=== PATIENT | male | born 1955 | race Caucasian/White ===

== ENCOUNTER → 2016-08-16 | Outpatient (CLI) | payer BC ==
[~2016-08-16] MED LIST: ADVIN25050 INH; ALBUAER2 INH; AMB10 PO; ASPEC81 PO; CLOP1TAB15 PO; FLV1 PO; LISI-725 PO; LSX20 PO; METO1TAB69 PO; THIA100T11 PO
[2016-08-16 14:40] LABS: BASO % 0.4 %; BASO ABS # 0.03 K/uL (0-0.2); COMPLETE YES; EOS % 2.7 %; HEMATOCRIT 41.7 % (42-52); IG% 0.1 %; LYMPH ABS # 2.87 K/uL (1.2-3.4); MEAN CELL VOLUME 101.7 fL (80-100); MEAN CORPUSCULAR HEMOGLOBIN 34.9 pg (25-34); MEAN CORPUSCULAR HGB CONC 34.3 g/dl (32-36); MEAN PLATELET VOLUME 9.6 fL (7.4-10.4); MONO % 9.4 %; NEUT % 50.4 %; PLATELET COUNT 216 K/uL (130-400); WHITE BLOOD COUNT 7.76 K/uL (4.8-10.8)
[2016-08-16 14:49] LABS: ALT/SGPT 40 U/L (12-78); AST/SGOT 31 U/L (15-37); BLOOD UREA NITROGEN 11 mg/dl (7-18); BUN/CREATININE RATIO 11.3 (10-20); CALCIUM 8.9 mg/dl (8.5-10.1); CARBON DIOXIDE 29 mmol/L (21-32); CHLORIDE 105 mmol/L (98-107); GLUCOSE 100 mg/dl (70-99); POTASSIUM 4.6 mmol/L (3.5-5.1); SODIUM 140 mmol/L (136-145)
[2016-08-16 14:52] LABS: CHOLESTEROL 136 mg/dl (0-200); CHOLESTEROL/HDL RATIO 2.1; HDL CHOLESTEROL 66 mg/dl; LDL CHOLESTEROL CALCULATED 55 mg/dl; TRIGLYCERIDES 75 mg/dl (0-150); VERY LOW DENSITY LIPOPROT CALC 15 mg/dl
== END | disposition home or self-care (01) ==
LOC: C.LAB1850 13:05
PROVIDERS: ATTEND Internal Medicine Cardiovascular Disease
DX: I10 Essential (primary) hypertension (principal); E78.00 Pure hypercholesterolemia, unspecified

== ENCOUNTER → 2017-02-14 | Outpatient (CLI) | payer BC ==
[2017-02-14 14:55] LABS: CHOLESTEROL/HDL RATIO 1.7
== END | disposition home or self-care (01) ==
LOC: C.LAB 13:34
PROVIDERS: ATTEND Internal Medicine Cardiovascular Disease
DX: E78.00 Pure hypercholesterolemia, unspecified (principal)

== ENCOUNTER → 2017-07-21 | Outpatient (CLI) | payer BC ==
[~2017-07-21] MED LIST changes: +METO100T44 PO; -METO1TAB69 PO
[2017-07-21 17:44] LABS: BASO % 0.1 %; BASO ABS # 0.01 K/uL (0-0.2); EOS % 0.2 %; EOS ABS # 0.02 K/uL (0-0.5); HEMATOCRIT 44.4 % (42-52); HEMOGLOBIN 15.2 g/dL (14.0-18.0); IG# 0.01 K/uL (0.00-0.02); LYMPH ABS # 1.86 K/uL (1.2-3.4); MEAN CELL VOLUME 102.3 fL (80-100); MEAN CORPUSCULAR HGB CONC 34.2 g/dl (32-36); MEAN PLATELET VOLUME 9.7 fL (7.4-10.4); MONO % 8.9 %; MONO ABS # 0.98 K/uL (0.11-0.59); NEUT % 73.7 %; NEUT ABS # 8.09 K/uL (1.4-6.5); PLATELET COUNT 365 K/uL (130-400); RED CELL DISTRIBUTION WIDTH CV 13.1 % (11.5-14.5); RED CELL DISTRIBUTION WIDTH SD 49.3 fL (36.4-46.3); WHITE BLOOD COUNT 10.97 K/uL (4.8-10.8)
[2017-07-21 17:46] LABS: ALBUMIN 3.9 gm/dl (3.4-5.0); ALT/SGPT 40 U/L (12-78); BLOOD UREA NITROGEN 15 mg/dl (7-18); CALCIUM 9.5 mg/dl (8.5-10.1); CARBON DIOXIDE 27 mmol/L (21-32); CHOLESTEROL 121 mg/dl (0-200); CREATININE 1.06 mg/dl (0.60-1.40); GLUCOSE 120 mg/dl (70-99); SODIUM 135 mmol/L (136-145)
[2017-07-21 17:51] LABS: ALKALINE PHOSPHATASE 63 U/L (45-117); AST/SGOT 21 U/L (15-37); LDL CHOLESTEROL CALCULATED 42 mg/dl
== END | disposition home or self-care (01) ==
LOC: C.LABBFT 13:37
PROVIDERS: ATTEND Internal Medicine
DX: J44.0 Chronic obstructive pulmonary disease with (acute) lower respiratory infection (principal); I25.10 Atherosclerotic heart disease of native coronary artery without angina pectoris; Z12.5 Encounter for screening for malignant neoplasm of prostate

== ENCOUNTER → 2018-01-16 | Outpatient (CLI) | payer BC ==
[~2018-01-16] MED LIST changes: +THIA100T10 PO; -THIA100T11 PO
[2018-01-16 12:27] LABS: BASO % 0.2 %; BASO ABS # 0.02 K/uL (0-0.2); EOS % 1.3 %; EOS ABS # 0.13 K/uL (0-0.5); HEMATOCRIT 42.5 % (42-52); HEMOGLOBIN 14.2 g/dL (14.0-18.0); IG# 0.02 K/uL (0.00-0.02); LYMPH % 32.2 %; LYMPH ABS # 3.17 K/uL (1.2-3.4); MEAN CELL VOLUME 103.7 fL (80-100); MEAN CORPUSCULAR HEMOGLOBIN 34.6 pg (25-34); MEAN CORPUSCULAR HGB CONC 33.4 g/dl (32-36); MEAN PLATELET VOLUME 9.6 fL (7.4-10.4); MONO % 14.4 %; MONO ABS # 1.42 K/uL (0.11-0.59); NEUT % 51.7 %; NEUT ABS # 5.08 K/uL (1.4-6.5); PLATELET COUNT 227 K/uL (130-400); RED CELL DISTRIBUTION WIDTH CV 12.7 % (11.5-14.5); WHITE BLOOD COUNT 9.84 K/uL (4.8-10.8)
[2018-01-16 13:00] LABS: HEMOGLOBIN A1C 5.9 % (4.5-5.6)
[2018-01-16 13:04] LABS: ALBUMIN 3.9 gm/dl (3.4-5.0); ALKALINE PHOSPHATASE 66 U/L (45-117); ALT/SGPT 78 U/L (12-78); AST/SGOT 61 U/L (15-37); BLOOD UREA NITROGEN 23 mg/dl (7-18); CALCIUM 8.6 mg/dl (8.5-10.1); CARBON DIOXIDE 23 mmol/L (21-32); CHOLESTEROL 130 mg/dl (0-200); CREATININE 1.23 mg/dl (0.60-1.40); GLUCOSE 105 mg/dl (70-99); LDL CHOLESTEROL CALCULATED 34 mg/dl; POTASSIUM 4.8 mmol/L (3.5-5.1); SODIUM 139 mmol/L (136-145); TOTAL PROTEIN 7.8 gm/dl (6.4-8.2)
== END | disposition home or self-care (01) ==
LOC: C.LABBFT 11:07
PROVIDERS: ATTEND Internal Medicine
DX: I10 Essential (primary) hypertension (principal); E78.00 Pure hypercholesterolemia, unspecified

== ENCOUNTER 2021-01-03 14:55 | Inpatient (IN) ==
[2021-01-03] MEDS ORDERED: methylPREDNISolone 125 MG/2 ML VIAL IV STA (16:41)
[2021-01-03] MEDS ORDERED: ALBUT/IPRATROP 3MG/0.5MG NEB 3 ML VIAL NEB STA ×2 (16:41→17:16)
--- NOTE | 2021-01-03 16:44 | Emergency Department Note ---
History of Present Illness General Chief Complaint: Shortness of Breath/Dyspnea Stated Complaint: SOB Time Seen by Provider: 01/03/21 16:32 History of Present Illness Provider Complaint: shortness of breath Onset (ago): week(s) (2) Severity: moderate Consistency/Duration: + progressively worsening Relieved By: + nothing Exacerbated By: + exertion and + coughing Known history of: COPD Associated symptoms: + chest pain, + cough and + wheezing; no fever, no sputum production, no orthopnea, no polyuria, no polydipsia, no paresthesias, no palpitations, no diaphoresis, no nausea/vomiting, no syncope, no abdominal pain, no chest congestion, no dizziness or no lightheadedness HPI Narrative: Most recently prescribed prednisone and amoxicillin which have not helped his symptoms. Related Data Home oxygen amount: none Home Medications Medication Instructions Recorded Confirmed Type vitamin B complex 1 tab PO DAILY 01/26/19 01/03/21 History sildenafil 50 mg tablet 50 mg PO DAILY PRN #6 tab 02/09/19 01/03/21 Rx folic acid 1 mg tablet 1 mg PO DAILY #90 tab 01/30/20 01/03/21 Rx lisinopril 20 mg tablet 20 mg PO DAILY #90 tab 03/11/20 01/03/21 Rx metoprolol tartrate 100 mg tablet 100 mg PO BID #180 tab 04/25/20 01/03/21 Rx tiotropium bromide 18 mcg capsule 1 cap INH DAILY #30 puffs 04/25/20 01/03/21 Rx with inhalation device (Spiriva with HandiHaler) ezetimibe 10 mg tablet 10 mg PO DAILY #90 tab 06/25/20 01/03/21 Rx furosemide 20 mg tablet 20 mg PO DAILY #90 tab 06/25/20 01/03/21 Rx rosuvastatin 20 mg tablet 20 mg PO DAILY #90 tab 06/25/20 01/03/21 Rx albuterol sulfate 90 mcg/actuation 2 puff INHALATION QID PRN #18 g 08/01/20 01/03/21 Rx aerosol inhaler (ProAir HFA) potassium chloride 10 mEq 10 meq PO DAILY #90 tab 09/15/20 01/03/21 Rx tablet,extended release aspirin 81 mg tablet,delayed 81 mg PO DAILY 01/03/21 01/03/21 History release (Aspirin Low Dose) Allergies Allergy/AdvReac Type Severity Reaction Status Date / Time atorvastatin Allergy muscle Verified 01/03/21 17:06 weakness, myalgia escitalopram [From Lexapro] Allergy Fatigued Verified 01/03/21 17:06 Past Med/Surg History Medical History Actinic keratosis Brain anoxic injury Controlled substance agreement broken History of cardiac arrest Hypercholesterolemia Hypertension Impaired fasting glucose Inflamed seborrheic keratosis Insomnia Memory loss Venous insufficiency Surgical History History of coronary artery stent placement Status post angioplasty Family History Brother Alcohol abuse Crohn's disease Drug abuse Depression Mother Colorectal cancer COPD (chronic obstructive pulmonary disease) Dementia Breast cancer Father Colorectal cancer Cardiac disorder Myocardial infarction Family/Other Colorectal cancer siblings Sister Thyroid disease Denies family history of Ovarian cancer Prostate cancer Social History Smoking Status: Current some day smoker Tobacco Type: Cigarettes Age Started Using Tobacco: 13; Cigarettes Per Day: 1 pack per 3 days; Second Hand Exposure: No; Do You Dip or Chew Tobacco: No; Tobacco Cessation Education Requested by Patient: No Hx Alcohol Use: Yes Alcohol type: beer Alcohol Intake Frequency: 4 or More x per/Week Alcohol Intake Frequency Comment: 3 beers per day Hx Substance Use: No Preferred Language: Mongolian Communication Ability: Effective Visual Impairment: No Limitations Hearing Ability: Normal Software Sales Representative Required: No Beliefs That Will Affect Care: None marital status: Current Living Situation: Alone current occupational status: retired 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 Review of Systems A total of 10 systems reviewed and were otherwise negative Physical Exam Vital Signs: Vital Signs - 24 hr 01/03/21 15:19 01/03/21 16:52 01/03/21 16:54 Temperature 36.9 C Temperature Source Oral Pulse Rate 95 H 91 H Pulse Rate [Apical ] 91 H 88 Pulse Rate from Sp O2 Sensor Respiratory Rate 20 24 20 Respiratory Effort / Characteristics Non-Labored Sponta neous Blood Pressure 148/102 H Blood Pressure [Ri ght Arm] 185/102 H Blood Pressure Maria E n 117 Blood Pressure Maria E n [Right Arm] 129 Blood Pressure Pos ition [Right Arm] Pulse Oximetry 94 94 97 Oxygen Delivery Me thod Room Air Room Air Room Air Oxygen Flow Rate Sepsis Recent Feve r Within 48 Hours No Sepsis New/Unexpla ined Change in Men shahriar Status N/A Sepsis Action Take n by Nursing No Action Required 01/03/21 17:52 01/03/21 18:10 01/03/21 19:00 Temperature Temperature Source Pulse Rate 113 H Pulse Rate [Apical ] 91 H 109 H Pulse Rate from Sp O2 Sensor 113 H Respiratory Rate 18 20 22 Respiratory Effort / Characteristics Non-Labored Sponta neous Blood Pressure 154/91 H Blood Pressure [Ri ght Arm] 136/80 Blood Pressure Maria E n 112 Blood Pressure Maria E n [Right Arm] 98 Blood Pressure Pos ition [Right Arm] Sitting Pulse Oximetry 97 95 95 Oxygen Delivery Me thod Room Air Room Air Oxygen Flow Rate Sepsis Recent Feve r Within 48 Hours Sepsis New/Unexpla ined Change in Men shahriar Status Sepsis Action Take n by Nursing 01/03/21 19:30 01/03/21 20:00 01/03/21 20:20 Temperature Temperature Source Pulse Rate 105 H 113 H Pulse Rate [Apical ] Pulse Rate from Sp O2 Sensor 105 H 113 H Respiratory Rate 23 24 Respiratory Effort / Characteristics Blood Pressure 129/79 118/79 Blood Pressure [Ri ght Arm] Blood Pressure Maria E n 95 92 Blood Pressure Maria E n [Right Arm] Blood Pressure Pos ition [Right Arm] Pulse Oximetry 94 95 86 L Oxygen Delivery Me thod Room Air Oxygen Flow Rate Sepsis Recent Feve r Within 48 Hours Sepsis New/Unexpla ined Change in Men shahriar Status Sepsis Action Take n by Nursing 01/03/21 20:22 Temperature Temperature Source Pulse Rate Pulse Rate [Apical ] Pulse Rate from Sp O2 Sensor Respiratory Rate Respiratory Effort / Characteristics Blood Pressure Blood Pressure [Ri ght Arm] Blood Pressure Maria E n Blood Pressure Maria E n [Right Arm] Blood Pressure Pos ition [Right Arm] Pulse Oximetry 98 Oxygen Delivery Me thod Nasal Cannula Oxygen Flow Rate 2 Sepsis Recent Feve r Within 48 Hours Sepsis New/Unexpla ined Change in Men shahriar Status Sepsis Action Take n by Nursing Physical Exam: Physical Exam GENERAL: Thin and frail HENT: Exam performed. - Head: Normocephalic and atraumatic. - Right Ear: External ear normal. No mastoid tenderness. - Left Ear: External ear normal. No mastoid tenderness. - Mouth/Throat: The oropharynx is clear and moist. No trismus in the jaw. No dental abscesses or uvula swelling. No oropharyngeal exudate or tonsillar abscesses. EYES: Conjunctivae and EOM are normal. Pupils are equal, round, and reactive to light. Right eye exhibits no discharge. Left eye exhibits no discharge. No scleral icterus. NECK: Normal range of motion. Neck supple. No JVD present. No spinous process tenderness present. No carotid bruit present. No rigidity. No tracheal deviation and normal range of motion present. No Brudzinski's sign and no Kernig's sign no omid. CV: Normal rate, regular rhythm, normal heart sounds and intact distal pulses. There is no peripheral edema. Palpable radial pulses bue. PULM/CHEST: Diminished breath sounds bilaterally. - Chest Wall: He exhibits no tenderness. ABD: The abdomen is soft. Bowel sounds are normal. He has no distension. No mass is present. There is no tenderness. There is no rebound, no guarding, no Hubbard's sign and no tenderness at McBurney's point. Rovsig negative. MUSC/SKEL: Normal range of motion. There is no peripheral edema, tenderness or deformity. LYMPH: No cervical adenopathy. NEURO: He is alert and oriented to person, place, and time. He has normal strength. No cranial nerve deficit or sensory deficit. Coordination and gait normal. GCS eye subscore is 4. GCS verbal subscore is 5. GCS motor subscore is 6. Cerebellar tests wnl. SKIN: Skin is warm and dry. He is not diaphoretic. PSYCH: He has a normal mood and affect. Behavior is normal. Judgment and thought content normal. Course Course 163: The patient was evaluated in room B11. A complete history and physical exam was performed Cardiac monitoring: An order was placed for continuous cardiac monitoring. The monitor shows a rate of 90 with sinus rhythm 1954: Vital signs stable. Patient reports feeling better status post receiving 2 DuoNeb treatments and Solu-Medrol. Labs show an elevated D-dimer, CTA was negative for PE but did show possible bronchitis. Labs also showed hyponatremia of 123. Patient shows no focal neurological deficits and has had no seizure- like activity, no need for hypertonic saline at this time. Patient be treated with IV fluids normal saline. Patient will also be given azithromycin 500 mg p.o. for his COPD exacerbation and any possible Legionella infection given his hyponatremia. Patient will be admitted to the [facility] hospitalist team Dr. Ziegler's team will be notified 2024: Patient hypoxic on room air. Patient's oxygen saturation improved with supplemental oxygen via nasal cannula. Administered Medications Albuterol (Albut/Ipratrop 3mg/0.5mg Neb 3 Ml Vial) 3 ml NEB Q4R STACEY Stop: 02/02/21 22:59 Last Admin: 01/03/21 23:15 Dose: 3 ml Documented by: [id number] Sodium Chloride (Nss 1000ml) 1,000 mls @ 125 mls/hr IV .Q8H STACEY Stop: 02/02/21 18:14 Last Admin: 01/03/21 18:19 Dose: 125 mls/hr Documented by: [id number] Discontinued Medications Albuterol (Albut/Ipratrop 3mg/0.5mg Neb 3 Ml Vial) 3 ml NEB NOW STA Stop: 01/03/21 16:42 Last Admin: 01/03/21 16:52 Dose: 3 ml Documented by: [id number] Albuterol (Albut/Ipratrop 3mg/0.5mg Neb 3 Ml Vial) 3 ml NEB NOW STA Stop: 01/03/21 17:17 Last Admin: 01/03/21 17:51 Dose: 3 ml Documented by: [id number] Azithromycin (Azithromycin 250 Mg Tab) 500 mg PO NOW ONE Stop: 01/03/21 18:12 Last Admin: 01/03/21 18:19 Dose: 500 mg Documented by: [id number] Ezetimibe (Ezetimibe 10 Mg Tablet) 10 mg PO ONE ONE Stop: 01/03/21 21:14 Last Admin: 01/03/21 23:19 Dose: Not Given Documented by: [id number] Hydroxyzine HCl (Hydroxyzine Hcl 10 Mg Tab) 10 mg PO ONE ONE Stop: 01/03/21 21:14 Last Admin: 01/03/21 23:20 Dose: Not Given Documented by: [id number] Ioversol (Optiray 320 125ml) 119 ml IV ONCE ONE Stop: 01/03/21 18:40 Last Admin: 01/03/21 18:40 Dose: 1 ml Documented by: [id number] Methylprednisolone (Methylprednisolone 125 Mg/2 Ml Vial) 125 mg IV NOW STA Stop: 01/03/21 16:42 Last Admin: 01/03/21 17:04 Dose: 125 mg Documented by: [id number] Metoprolol Tartrate (Metoprolol Tartrate 100 Mg Tab) 100 mg PO ONE ONE Stop: 01/03/21 21:16 Last Admin: 01/03/21 23:20 Dose: Not Given Documented by: [id number] Metoprolol Tartrate (Metoprolol Tartrate 100 Mg Tab) 100 mg PO ONE ONE Stop: 01/03/21 22:16 Last Admin: 01/03/21 22:39 Dose: 100 mg Documented by: [id number] Potassium Chloride (Potassium Chloride 10 Meq Tabcr) 10 meq PO NOW STA Stop: 01/03/21 21:13 Last Admin: 01/03/21 23:19 Dose: Not Given Documented by: [id number] Rosuvastatin Calcium (Rosuvastatin Calcium 20 Mg Tab) 20 mg PO NOW STA Stop: 01/03/21 21:13 Last Admin: 01/03/21 23:19 Dose: Not Given Documented by: [id number] Medical Decision Making Laboratory Data Result diagrams: 01/03/21 16:54 01/03/21 16:54 Lab Results 01/03/21 01/03/21 01/03/21 Range/Units 16:54 16:54 16:54 WBC 5.77 (4.8-10.8) K/uL RBC 4.67 L (4.7-6.1) M/uL Hgb 16.7 (14.0-18.0) g/dL Hct 47.4 (42-52) % MCV 101.5 H (80-100) fL MCH 35.8 H (25-34) pg MCHC 35.2 (32-36) g/dL RDW Std Deviation 44.5 (36.4-46.3) fL RDW Coeff of [place] 12.1 (11.5-14.5) % Plt Count 196 (130-400) K/uL MPV 9.1 (7.4-10.4) fL Immature Gran % (Auto) 0.3 % Neut % (Auto) 63.5 % Lymph % (Auto) 21.3 % Payette % (Auto) 14.7 % Eos % (Auto) 0.0 % Baso % (Auto) 0.2 % Neut # (Auto) 3.66 (1.4-6.5) K/uL Lymph # (Auto) 1.23 (1.2-3.4) K/uL Payette # (Auto) 0.85 H (0.11-0.59) K/uL Eos # (Auto) 0.00 (0-0.5) K/uL Baso # (Auto) 0.01 (0-0.2) K/uL Immature Gran # (Auto) 0.02 (0.00-0.02) K/uL PT 9.7 (9.0-12.0) Seconds INR 1.0 (0.9-1.1) APTT 28.0 (21.0-31.0) Seconds PTT Ratio 1.1 D-Dimer (0-500) ug/L FEU VBG pH (7.36-7.41) VBG pCO2 (38-50) mmHg VBG pO2 mmHg VBG HCO3 mmol/L VBG O2 Saturation % VBG Base Excess mEq/L Barometric Pressure mm/Hg Sodium 123 L (136-145) mmol/L Potassium 4.0 (3.5-5.1) mmol/L Chloride 86 L (98-107) mmol/L Carbon Dioxide 27 (21-32) mmol/L Anion Gap 10.0 (3-11) BUN 14 (7-18) mg/dl Creatinine 1.02 (0.6-1.4) mg/dl Est Cr Clr Drug Dosing 49.9 ml/min Est GFR ( Amer) 87.7 ml/min Est GFR (Non-Af Amer) 75.7 ml/min BUN/Creatinine Ratio 13.6 (10-20) Glucose 124 H (70-99) mg/dl Osmolality (280-300) mOsm/kg Calcium 8.8 (8.5-10.1) mg/dl Magnesium 2.4 (1.8-2.4) mg/dl Troponin I < 0.015 (0-0.045) ng/ml COVID-19 Eval Order SARS-CoV-2 (PCR) (Negative) 01/03/21 01/03/21 01/03/21 Range/Units 16:54 16:54 16:59 WBC (4.8-10.8) K/uL RBC (4.7-6.1) M/uL Hgb (14.0-18.0) g/dL Hct (42-52) % MCV (80-100) fL MCH (25-34) pg MCHC (32-36) g/dL RDW Std Deviation (36.4-46.3) fL RDW Coeff of [place] (11.5-14.5) % Plt Count (130-400) K/uL MPV (7.4-10.4) fL Immature Gran % (Auto) % Neut % (Auto) % Lymph % (Auto) % [place]ette % (Auto) % Eos % (Auto) % Baso % (Auto) % Neut # (Auto) (1.4-6.5) K/uL Lymph # (Auto) (1.2-3.4) K/uL Payette # (Auto) (0.11-0.59) K/uL Eos # (Auto) (0-0.5) K/uL Baso # (Auto) (0-0.2) K/uL Immature Gran # (Auto) (0.00-0.02) K/uL PT (9.0-12.0) Seconds INR (0.9-1.1) APTT (21.0-31.0) Seconds PTT Ratio D-Dimer 720 H* (0-500) ug/L FEU VBG pH 7.24 L (7.36-7.41) VBG pCO2 37 L (38-50) mmHg VBG pO2 27 mmHg VBG HCO3 15 mmol/L VBG O2 Saturation < 60.0 % VBG Base Excess -11.3 mEq/L Barometric Pressure 735.7 mm/Hg Sodium (136-145) mmol/L Potassium (3.5-5.1) mmol/L Chloride (98-107) mmol/L Carbon Dioxide (21-32) mmol/L Anion Gap (3-11) BUN (7-18) mg/dl Creatinine (0.6-1.4) mg/dl Est Cr Clr Drug Dosing ml/min Est GFR ( Amer) ml/min Est GFR (Non-Af Amer) ml/min BUN/Creatinine Ratio (10-20) Glucose (70-99) mg/dl Osmolality 268 L (280-300) mOsm/kg Calcium (8.5-10.1) mg/dl Magnesium (1.8-2.4) mg/dl Troponin I (0-0.045) ng/ml COVID-19 Eval Order SARS-CoV-2 (PCR) (Negative) 01/03/21 01/03/21 Range/Units 17:00 17:00 WBC (4.8-10.8) K/uL RBC (4.7-6.1) M/uL Hgb (14.0-18.0) g/dL Hct (42-52) % MCV (80-100) fL MCH (25-34) pg MCHC (32-36) g/dL RDW Std Deviation (36.4-46.3) fL RDW Coeff of [place] (11.5-14.5) % Plt Count (130-400) K/uL MPV (7.4-10.4) fL Immature Gran % (Auto) % Neut % (Auto) % Lymph % (Auto) % [place]ette % (Auto) % Eos % (Auto) % Baso % (Auto) % Neut # (Auto) (1.4-6.5) K/uL Lymph # (Auto) (1.2-3.4) K/uL Payette # (Auto) (0.11-0.59) K/uL Eos # (Auto) (0-0.5) K/uL Baso # (Auto) (0-0.2) K/uL Immature Gran # (Auto) (0.00-0.02) K/uL PT (9.0-12.0) Seconds INR (0.9-1.1) APTT (21.0-31.0) Seconds PTT Ratio D-Dimer (0-500) ug/L FEU VBG pH (7.36-7.41) VBG pCO2 (38-50) mmHg VBG pO2 mmHg VBG HCO3 mmol/L VBG O2 Saturation % VBG Base Excess mEq/L Barometric Pressure mm/Hg Sodium (136-145) mmol/L Potassium (3.5-5.1) mmol/L Chloride (98-107) mmol/L Carbon Dioxide (21-32) mmol/L Anion Gap (3-11) BUN (7-18) mg/dl Creatinine (0.6-1.4) mg/dl Est Cr Clr Drug Dosing ml/min Est GFR ( Amer) ml/min Est GFR (Non-Af Amer) ml/min BUN/Creatinine Ratio (10-20) Glucose (70-99) mg/dl Osmolality (280-300) mOsm/kg Calcium (8.5-10.1) mg/dl Magnesium (1.8-2.4) mg/dl Troponin I (0-0.045) ng/ml COVID-19 Eval Order Covid19 at [facility] SARS-CoV-2 (PCR) NEGATIVE (Negative) Imaging Data Radiologist's Impression: Chest X-Ray 01/03/21 16:41 XR chest 1V portable HISTORY: 65 years-old Male sob acute shortness of breath. COMPARISON: Chest radiograph 09/13/2008 TECHNIQUE: Portable AP view of the chest FINDINGS: Cardiomediastinal and hilar silhouettes are within normal limits. Emphysema with left greater than right interstitial opacities. 6 mm nodule of the right lung base is suggestive of a nipple shadow. 1.3 cm nodular density of the left lung base. No pneumothorax, large pleural effusion or lobar airspace consolidation. Degenerative changes of the shoulders and spine. IMPRESSION: 1. Emphysema with left greater than right interstitial opacities suggestive of fibrosis versus interstitial pneumonitis. 2. 1.3 cm left lung base nodular opacity is suggestive of summation density vers us pulmonary nodule. ACT 112: Negative or not required by law. The above report was generated using voice recognition software. It may contain grammatical, syntax or spelling errors. Electronically signed by: Doug Kim M.D. 01/03/2021 5:42 PM Chest CTA 01/03/21 18:15 CT angio chest PE protocol CT DOSE: 294.74 mGy.cm HISTORY: 65 years-old Male with ro PE. Acute shortness of breath TECHNIQUE: Multiple CTA images of the chest were obtained after the intravenous administration of 119 ml Optiray. Coronal and sagittal MIPS were obtained from the axial data set and were submitted for review. All measurements were obtained according to NASCET criteria. A dose lowering technique was utilized adhering to the principles of ALARA. COMPARISON: Chest radiograph of same day, CT cervical spine 01/21/2008. FINDINGS: CTA: The heart is normal in size. No pericardial effusion. Extensive coronary artery calcifications. Moderate atherosclerosis of the thoracic aorta without aneurysm or dissection. There is patency of the imaged great vessels. Evaluation of the pulmonary artery is limited secondary to respiratory motion. No pulmonary emboli identified. CT CHEST: No thyroid nodule. No adenopathy. No pneumothorax, pleural effusion, airspace consolidation or overt pulmonary edema. Severe emphysema with bronchial wall thickening suggestive of bronchitis. There are no suspicious pulmonary nodules or masses. 7 x 9 mm nodule of the left lung apex on image 312 is new from the 2008 comparison. Central airways are patent. There is no pneumoperitoneum. No acute process of the imaged upper abdomen. Unremarkable soft tissues. No acute fracture. Healed chronic left-sided rib fractures. IMPRESSION: 1. No pulmonary emboli. 2. Emphysema with bronchial wall thickening suggestive of bronchitis. 3. Extensive coronary artery calcifications. 4. 9 x 7 mm left apical nodule suggestive of pleural-parenchymal scarring however is new from 2008. 6 month follow-up chest CT recommended. 5. No adenopathy. ACT 112: Negative or not required by law. The above report was generated using voice recognition software. It may contain grammatical, syntax or spelling errors. Electronically signed by: Doug Kim M.D. 01/03/2021 7:45 PM ECG Data Interpretation: EKG at 1737: Sinus rhythm with rate of 94. [place] and QTc intervals are within normal limits. QRS 74. No ST elevation or ST depression. [facility] Narrative 1632: The patient was evaluated in room B11. A complete history and physical exam was performed Cardiac monitoring: An order was placed for continuous cardiac monitoring. The monitor shows a rate of 90 with sinus rhythm 1954: Vital signs stable. Patient reports feeling better status post receiving 2 DuoNeb treatments and Solu-Medrol. Labs show an elevated D-dimer, CTA was negative for PE but did show possible bronchitis. Labs also showed hyponatremia of 123. Patient shows no focal neurological deficits and has had no seizure- like activity, no need for hypertonic saline at this time. Patient be treated with IV fluids normal saline. Patient will also be given azithromycin 500 mg p.o. for his COPD exacerbation and any possible Legionella infection given his hyponatremia. Patient will be admitted to the [facility] hospitalist team Dr. Ziegler's team will be notified 2024: Patient hypoxic on room air. Patient's oxygen saturation improved with supplemental oxygen via nasal cannula. Impression & Plan Hypoxia, COPD (chronic obstructive pulmonary disease), Acute hyponatremia Critical Care Time Critical Care Time: Yes Total Critical Care Time: 37 I have personally spent greater than 37 minutes of critical care time in the direct management of this patient. This includes bedside care, interpretation of diagnostic studies, and testing, discussion with consultants, patient, and family members, and other required patient management activities. This 37 minutes is in excess of all separately billable procedures. Discharge Plan Visit Data Chief Complaint: Shortness of Breath/Dyspnea Stated Complaint: SOB Discharge Problem: Hypoxia, COPD (chronic obstructive pulmonary disease), Acute hyponatremia Patient Disposition: Admitted As Inpatient Discharge Instructions Interventions: ED Discharge Assessment Last Done: 01/03/21 21:26
[2021-01-03 17:07] LABS: Hematocrit (blood only) 47.4 % (42-52); Hemoglobin 16.7 g/dL (14.0-18.0); Mean Corpuscular Hemoglobin 35.8 pg (25-34); Mean Corpuscular Hgb Conc 35.2 g/dL (32-36); Mean Corpuscular Volume 101.5 fL (80-100); RDW Coefficient of Variation 12.1 % (11.5-14.5); RDW Standard Deviation 44.5 fL (36.4-46.3); Red Blood Count 4.67 M/uL (4.7-6.1); White Blood Count 5.77 K/uL (4.8-10.8)
[2021-01-03 17:08] LABS: Basophils # (auto) 0.01 K/uL (0-0.2); Basophils % (auto) 0.2 %; Immature Granulocytes # (auto) 0.02 K/uL (0.00-0.02); Immature Granulocytes % (auto) 0.3 %; Lymphocytes # (auto) 1.23 K/uL (1.2-3.4); Lymphocytes % (auto) 21.3 %; Mean Platelet Volume 9.1 fL (7.4-10.4); Monocytes # (auto) 0.85 K/uL (0.11-0.59); Monocytes % (auto) 14.7 %; Neutrophils # (auto) 3.66 K/uL (1.4-6.5); Neutrophils % (auto) 63.5 %; Platelet Count 196 K/uL (130-400)
[2021-01-03 17:09] LABS: Base Excess VBG -11.3 mEq/L; HCO3 VBG 15 mmol/L; PCO2 VBG 37 mmHg (38-50); PO2 VBG 27 mmHg; pH VBG 7.24 (7.36-7.41)
[2021-01-03 17:16] LABS: Oxygen Saturation VBG < 60.0 %
[2021-01-03 17:27] LABS: BUN Creatinine Ratio 13.6 (10-20); Blood Urea Nitrogen 14 mg/dl (7-18); Calcium 8.8 mg/dl (8.5-10.1); Carbon Dioxide 27 mmol/L (21-32); Chloride 86 mmol/L (98-107); Creatinine Clr Calc Pharmacy 49.9 ml/min; Est GFR (African American) 87.7 ml/min; Est GFR (Non-African American) 75.7 ml/min; Glucose 124 mg/dl (70-99); Magnesium 2.4 mg/dl (1.8-2.4); Sodium 123 mmol/L (136-145)
[2021-01-03 17:29] LABS: Troponin I < 0.015 ng/ml (0-0.045)
[2021-01-03 17:30] LABS: Partial Thromboplastin Ratio 1.1; Prothrombin Time 9.7 Seconds (9.0-12.0)
--- NOTE | 2021-01-03 17:43 | XRay Report ---
XR chest 1V portable HISTORY: 65 years-old Male sob acute shortness of breath. COMPARISON: Chest radiograph 09/13/2008 TECHNIQUE: Portable AP view of the chest FINDINGS: Cardiomediastinal and hilar silhouettes are within normal limits. Emphysema with left greater than ri ght interstitial opacities. 6 mm nodule of the right lung base is suggestive of a nipple shadow. 1.3 cm nodular density of the left lung base. No pneumothorax, large pleural effusion or lobar airspace c onsolidation. Degenerative changes of the shoulders and spine. IMPRESSION: 1. Emphysema with left greater than right interstitial opacities suggestive of fibrosis versus inters titial pneumonitis. 2. 1.3 cm left lung base nodular opacity is suggestive of summation density versus pulmonary nodule. ACT 112: Negative or not required by law. The above report was generated using voice recognition software. It may contain grammatical, syntax o r spelling errors. Electronically signed by: Doug iKm M.D. 01/03/2021 5:42 PM
[2021-01-03 18:11] LABS: D Dimer 720 ug/L FEU (0-500)
[2021-01-03] MEDS ORDERED: AZITHROMYCIN 250 MG TAB PO ONE (18:11)
[2021-01-03] MEDS: SODIUM CHLORIDE 0.9% 1000ML 1,000 ML IV SCH (18:19)
[2021-01-03] MEDS ORDERED: OPTIRAY 320 125ml IV ONE (18:39)
--- NOTE | 2021-01-03 19:47 | CT Scan Report ---
CT angio chest PE protocol CT DOSE: 294.74 mGy.cm HISTORY: 65 years-old Male with ro PE. Acute shortness of breath TECHNIQUE: Multiple CTA images of the chest were obtained after the intravenous administration of 119 ml Optiray. Coronal and sagittal MIPS were obtained from the axial data set and were submitted for review. All measurements were obtained according to NASCET criteria. A dose lowering technique was u tilized adhering to the principles of ALARA. COMPARISON: Chest radiograph of same day, CT cervical spine 01/21/2008. FINDINGS: CTA: The heart is normal in size. No pericardial effusion. Extensive coronary artery calcifications. Moder ate atherosclerosis of the thoracic aorta without aneurysm or dissection. There is patency of the loreta ged great vessels. Evaluation of the pulmonary artery is limited secondary to respiratory motion. No pulmonary emboli identified. CT CHEST: No thyroid nodule. No adenopathy. No pneumothorax, pleural effusion, airspace consolidation or overt pulmonary edema. Severe emphysema with bronchial wall thickening suggestive of bronchitis. There are no suspicious pulmonary nodules or masses. 7 x 9 mm nodule of the left lung apex on image 312 is new from the 2007 comparison. Central airways are patent. There is no pneumoperitoneum. No acute process of the imaged upper abdomen. Unremarkable soft tissues . No acute fracture. Healed chronic left-sided rib fractures. IMPRESSION: 1. No pulmonary emboli. 2. Emphysema with bronchial wall thickening suggestive of bronchitis. 3. Extensive coronary artery calcifications. 4. 9 x 7 mm left apical nodule suggestive of pleural-parenchymal scarring however is new from 2008. 6 month follow-up chest CT recommended. 5. No adenopathy. ACT 112: Negative or not required by law. The above report was generated using voice recognition software. It may contain grammatical, syntax o r spelling errors. Electronically signed by: Doug Kim M.D. 01/03/2021 7:45 PM
--- NOTE | 2021-01-03 20:38 | History & Physical Report ---
Date of Service January 03, 2021 Assessment & Plan (1) COPD exacerbation: Plan: 65 yo M with hx sudden cardiac arrest s/p RCA stent, CAD, HTN, HLD, COPD, current smoker admitted for COPD exacerbation and hyponatremia. 1. COPD Exacerbation - duoneb tx x2 in ER, methylpred 125 IV - new O2 requirement of 2L NC - duonebs Q4H sched, Q2H PRN ordered - goal O2 88 - 96%, wean as tolerated - flutter valve - CTA w/ evidence of bronchitis, chronic pulm nodules that will need follow up, no sign of pneumonia - in setting of diarrhea + pulmonary exacerbation, legionella ag pending - daily azithro 500 x 3 days - encourage smoking cessation 2. Hypovolemic Hyponatremia - likely secondary to progressive diarrhea and dehydration - with decreased urination, decreased likelihood of osmotic hyponatremia - VBG and BMP indicative of nongap metabolic acidosis - BMP Q4H, goal sodium increase of <8 meq/24 h - urine Na, osm, serum osm pending - nephro consult - holding lasix elevated d-dimer - likely due to viral infection causing COPD ex, - CTA Chest negative for PE, no sx or swelling indicative of DVT, no hx clotting Pulmonary nodule Chest CTA revealed a 9X 7 mm left apical nodule suggestive of pleuralparenchymal scarring however, is new from 2007. A 6-month follow-up chest CT is recommended Chronic conditions: HTN: cont metoprolol, lisinopril. HLD: cont zetia, statin CAD: cont asa DVT ppx: SCD FEN/GI: heart healthy, famotidine PO Bowel regimen: NA; hemoccult stool Code Status: full code Dispo: med/surg (2) Smoking: (3) Hypertension: (4) Hypercholesterolemia: (5) CAD (coronary artery disease): (6) COPD (chronic obstructive pulmonary disease): History of Present Illness Chief Complaint: SOB Primary Care Provider: Chance Manzo MD 65 yo M with hx CAD and COPD brought to ER for ongoing SOb. Was started on augmentin for persistent nasal congestion on 12/25 along with PO steroid pack, didn't have any improvement. States he's been having shortness of breath for the past week and half, and finally came in now because he's unable to lay flat, is anxious due to breathlessness at night, and has been febrile, having chills and night sweats. Miries any sick contacts but was at an [employer] meeting 5 days ago with 4 other people in a large room. Has been having loose, dark diarrhea for the past 4-5 days as well, along with increasing nausea. no abd pain. no vomiting. Is having coughs that were previously productive but not anymore. Allergies Allergy/AdvReac Type Severity Reaction Status Date / Time atorvastatin Allergy muscle Verified 01/03/21 17:06 weakness, myalgia escitalopram [From Lexapro] Allergy Fatigued Verified 01/03/21 17:06 Home Medications Medication Instructions Recorded Confirmed Type vitamin B complex 1 tab PO DAILY 01/26/19 01/03/21 History sildenafil 50 mg tablet 50 mg PO DAILY PRN #6 tab 02/09/19 01/03/21 Rx folic acid 1 mg tablet 1 mg PO DAILY #90 tab 01/30/20 01/03/21 Rx lisinopril 20 mg tablet 20 mg PO DAILY #90 tab 03/11/20 01/03/21 Rx metoprolol tartrate 100 mg tablet 100 mg PO BID #180 tab 04/25/20 01/03/21 Rx tiotropium bromide 18 mcg capsule 1 cap INH DAILY #30 puffs 04/25/20 01/03/21 Rx with inhalation device (Spiriva with HandiHaler) ezetimibe 10 mg tablet 10 mg PO DAILY #90 tab 06/25/20 01/03/21 Rx furosemide 20 mg tablet 20 mg PO DAILY #90 tab 06/25/20 01/03/21 Rx rosuvastatin 20 mg tablet 20 mg PO DAILY #90 tab 06/25/20 01/03/21 Rx albuterol sulfate 90 mcg/actuation 2 puff INHALATION QID PRN #18 g 08/01/20 01/03/21 Rx aerosol inhaler (ProAir HFA) potassium chloride 10 mEq 10 meq PO DAILY #90 tab 09/15/20 01/03/21 Rx tablet,extended release aspirin 81 mg tablet,delayed 81 mg PO DAILY 01/03/21 01/03/21 History release (Aspirin Low Dose) Past Med/Surg History Medical History Actinic keratosis Brain anoxic injury Controlled substance agreement broken History of cardiac arrest Hypercholesterolemia Hypertension Impaired fasting glucose Inflamed seborrheic keratosis Insomnia Memory loss Venous insufficiency Surgical History History of coronary artery stent placement Status post angioplasty Family History Brother Alcohol abuse Crohn's disease Drug abuse Depression Mother Colorectal cancer COPD (chronic obstructive pulmonary disease) Dementia Breast cancer Father Colorectal cancer Cardiac disorder Myocardial infarction Family/Other Colorectal cancer siblings Sister Thyroid disease Denies family history of Ovarian cancer Prostate cancer Social History Smoking Status: Current some day smoker Tobacco Type: Cigarettes Age Started Using Tobacco: 13; Cigarettes Per Day: 1 pack per 3 days; Second Hand Exposure: No; Do You Dip or Chew Tobacco: No; Tobacco Cessation Education Requested by Patient: No Hx Alcohol Use: Yes Alcohol type: beer Alcohol Intake Frequency: 4 or More x per/Week Alcohol Intake Frequency Comment: 3 beers per day Hx Substance Use: No Preferred Language: Indonesian Communication Ability: Effective Visual Impairment: No Limitations Hearing Ability: Normal Universal Worker Assisted Living Required: No Beliefs That Will Affect Care: None marital status: Current Living Situation: Alone current occupational status: retired 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 Review of Systems Constitutional: + fever, + chills, + sweats and + fatigue Eyes: no blind spots and no discharge Ear, Nose, Mouth, Throat: + nasal congestion; no hearing loss Respiratory: + cough, + dyspnea, + dyspnea on exertion, + sputum production and + wheezing Cardiovascular: no chest pain, no dyspnea on exertion and no edema Gastrointestinal: + nausea, + diarrhea/loose stools and + melena; no abdominal pain, no vomiting, no constipation and no blood in stools Genitourinary: + decreased urination Musculoskeletal: no joint pain and no myalgia Neurologic: + dizziness (with standing); no tingling, no numbness and no headache(s) Endocrine: no fatigue Physical Exam Constitutional: + thin, + frail appearing and + in distress Respiratory: + labored breathing, + retractions, + uses accessory muscles, + cough and + audible wheezes; + not able to speak in complete sentence, no nasal flaring and no pursed lip breathing Cardiovascular: Rate/Rhythm: regular rhythm and + tachycardic Heart Sounds: normal S1 and normal S2; no gallop, no murmur and no cardiac rub Extremities: + edema; no calf tenderness Gastrointestinal (Abdomen): Inspection/Auscultation: abdomen normal to inspection and normal bowel sounds; abdomen not distended Percussion/Palpation: + abdomen tender (epigastric) and abdomen soft; no gua rding Results & Data Results & Data ([facility]) Vital Signs (Past 12 Hours) Vital Signs Temp Pulse Pulse Resp BP BP Pulse Ox 01/03/21 20:22 98 01/03/21 20:20 86 L 01/03/21 20:00 113 H 24 118/79 95 01/03/21 19:30 105 H 23 129/79 94 01/03/21 19:00 113 H 22 154/91 H 95 01/03/21 18:10 109 H 20 136/80 95 01/03/21 17:52 91 H 18 97 01/03/21 16:54 88 20 97 01/03/21 16:52 91 H 91 H 24 185/102 H 94 01/03/21 15:19 36.9 C 95 H 20 148/102 H 94 Laboratory Results Laboratory Results WBC 5.77 K/uL (4.8-10.8) 01/03/21 16:54 RBC 4.67 M/uL (4.7-6.1) L 01/03/21 16:54 Hgb 16.7 g/dL (14.0-18.0) 01/03/21 16:54 Hct 47.4 % (42-52) 01/03/21 16:54 MCV 101.5 fL (80-100) H 01/03/21 16:54 MCH 35.8 pg (25-34) H 01/03/21 16:54 MCHC 35.2 g/dL (32-36) 01/03/21 16:54 RDW Std Deviation 44.5 fL (36.4-46.3) 01/03/21 16:54 RDW Coeff of [place] 12.1 % (11.5-14.5) 01/03/21 16:54 Plt Count 196 K/uL (130-400) 01/03/21 16:54 MPV 9.1 fL (7.4-10.4) 01/03/21 16:54 Immature Gran % (Auto) 0.3 % 01/03/21 16:54 Neut % (Auto) 63.5 % 01/03/21 16:54 Lymph % (Auto) 21.3 % 01/03/21 16:54 Bucks % (Auto) 14.7 % 01/03/21 16:54 Eos % (Auto) 0.0 % 01/03/21 16:54 Baso % (Auto) 0.2 % 01/03/21 16:54 Neut # (Auto) 3.66 K/uL (1.4-6.5) 01/03/21 16:54 Lymph # (Auto) 1.23 K/uL (1.2-3.4) 01/03/21 16:54 Bucks # (Auto) 0.85 K/uL (0.11-0.59) H 01/03/21 16:54 Eos # (Auto) 0.00 K/uL (0-0.5) 01/03/21 16:54 Baso # (Auto) 0.01 K/uL (0-0.2) 01/03/21 16:54 Immature Gran # (Auto) 0.02 K/uL (0.00-0.02) 01/03/21 16:54 PT 9.7 Seconds (9.0-12.0) 01/03/21 16:54 INR 1.0 (0.9-1.1) 01/03/21 16:54 APTT 28.0 Seconds (21.0-31.0) 01/03/21 16:54 PTT Ratio 1.1 01/03/21 16:54 D-Dimer 720 ug/L FEU (0-500) H* 01/03/21 16:54 VBG pH 7.24 (7.36-7.41) L 01/03/21 16:54 VBG pCO2 37 mmHg (38-50) L 01/03/21 16:54 VBG pO2 27 mmHg 01/03/21 16:54 VBG HCO3 15 mmol/L 01/03/21 16:54 VBG O2 Saturation < 60.0 % 01/03/21 16:54 VBG Base Excess -11.3 mEq/L 01/03/21 16:54 Barometric Pressure 735.7 mm/Hg 01/03/21 16:54 Sodium 123 mmol/L (136-145) L 01/03/21 16:54 Potassium 4.0 mmol/L (3.5-5.1) 01/03/21 16:54 Chloride 86 mmol/L (98-107) L 01/03/21 16:54 Carbon Dioxide 27 mmol/L (21-32) 01/03/21 16:54 Anion Gap 10.0 (3-11) 01/03/21 16:54 BUN 14 mg/dl (7-18) 01/03/21 16:54 Creatinine 1.02 mg/dl (0.6-1.4) 01/03/21 16:54 Est Cr Clr Drug Dosing 49.9 ml/min 01/03/21 16:54 Est GFR ( Amer) 87.7 ml/min 01/03/21 16:54 Est GFR (Non-Af Amer) 75.7 ml/min 01/03/21 16:54 BUN/Creatinine Ratio 13.6 (10-20) 01/03/21 16:54 Glucose 124 mg/dl (70-99) H 01/03/21 16:54 Calcium 8.8 mg/dl (8.5-10.1) 01/03/21 16:54 Magnesium 2.4 mg/dl (1.8-2.4) 01/03/21 16:54 Troponin I < 0.015 ng/ml (0-0.045) 01/03/21 16:54 COVID-19 Eval Order Covid19 at [facility], [place] 01/03/21 17:00 SARS-CoV-2 (PCR) NEGATIVE (Negative) 01/03/21 17:00 Impressions Chest X-Ray 01/03/21 16:41 XR chest 1V portable HISTORY: 65 years-old Male sob acute shortness of breath. COMPARISON: Chest radiograph 09/13/2008 TECHNIQUE: Portable AP view of the chest FINDINGS: Cardiomediastinal and hilar silhouettes are within normal limits. Emphysema with left greater than right interstitial opacities. 6 mm nodule of the right lung base is suggestive of a nipple shadow. 1.3 cm nodular density of the left lung base. No pneumothorax, large pleural effusion or lobar airspace consolidation. Degenerative changes of the shoulders and spine. IMPRESSION: 1. Emphysema with left greater than right interstitial opacities suggestive of fibrosis versus interstitial pneumonitis. 2. 1.3 cm left lung base nodular opacity is suggestive of summation density versus pulmonary nodule. ACT 112: Negative or not required by law. The above report was generated using voice recognition software. It may contain grammatical, syntax or spelling errors. Electronically signed by: Doug Kim M.D. 01/03/2021 5:42 PM Chest CTA 01/03/21 18:15 CT angio chest PE protocol CT DOSE: 294.74 mGy.cm HISTORY: 65 years-old Male with ro PE. Acute shortness of breath TECHNIQUE: Multiple CTA images of the chest were obtained after the intravenous administration of 119 ml Optiray. Coronal and sagittal MIPS were obtained from the axial data set and were submitted for review. All measurements were obtai patti according to NASCET criteria. A dose lowering technique was utilized adhering to the principles of ALARA. COMPARISON: Chest radiograph of same day, CT cervical spine 01/21/2008. FINDINGS: CTA: The heart is normal in size. No pericardial effusion. Extensive coronary artery calcifications. Moderate atherosclerosis of the thoracic aorta without aneurysm or dissection. There is patency of the imaged great vessels. Evaluation of the pulmonary artery is limited secondary to respiratory motion. No pulmonary emboli identified. CT CHEST: No thyroid nodule. No adenopathy. No pneumothorax, pleural effusion, airspace consolidation or overt pulmonary edema. Severe emphysema with bronchial wall thickening suggestive of bronchitis. There are no suspicious pulmonary nodules or masses. 7 x 9 mm nodule of the left lung apex on image 312 is new from the 2007 comparison. Central airways are patent. There is no pneumoperitoneum. No acute process of the imaged upper abdomen. Unremarkable soft tissues. No acute fracture. Healed chronic left-sided rib fractures. IMPRESSION: 1. No pulmonary emboli. 2. Emphysema with bronchial wall thickening suggestive of bronchitis. 3. Extensive coronary artery calcifications. 4. 9 x 7 mm left apical nodule suggestive of pleural-parenchymal scarring however is new from 2008. 6 month follow-up chest CT recommended. 5. No adenopathy. ACT 112: Negative or not required by law. The above report was generated using voice recognition software. It may contain grammatical, syntax or spelling errors. Electronically signed by: Doug Kim M.D. 01/03/2021 7:45 PM Medications Administered Sodium Chloride (Nss 1000ml) 1,000 mls @ 125 mls/hr IV .Q8H STACEY Stop: 02/02/21 18:14 Last Admin: 01/03/21 18:19 Dose: 125 mls/hr Documented by: [id number] Discontinued Medications Albuterol (Albut/Ipratrop 3mg/0.5mg Neb 3 Ml Vial) 3 ml NEB NOW STA Stop: 01/03/21 16:42 Last Admin: 01/03/21 16:52 Dose: 3 ml Documented by: [id number] Albuterol (Albut/Ipratrop 3mg/0.5mg Neb 3 Ml Vial) 3 ml NEB NOW STA Stop: 01/03/21 17:17 Last Admin: 01/03/21 17:51 Dose: 3 ml Documented by: [id number] Azithromycin (Azithromycin 250 Mg Tab) 500 mg PO NOW ONE Stop: 01/03/21 18:12 Last Admin: 01/03/21 18:19 Dose: 500 mg Documented by: [id number] Ioversol (Optiray 320 125ml) 119 ml IV ONCE ONE Stop: 01/03/21 18:40 Last Admin: 01/03/21 18:40 Dose: 1 ml Documented by: [id number] Methylprednisolone (Methylprednisolone 125 Mg/2 Ml Vial) 125 mg IV NOW STA Stop: 01/03/21 16:42 Last Admin: 01/03/21 17:04 Dose: 125 mg Documented by: [id number] Code Status & VTE Plan VTE Prophylaxis Plan VTE Prophylaxis will be ordered: Yes Supervising Physician Co-Signing Physician Notes Patient seen and examined, chart reviewed, case discussed with Dr. Baca and I agree with her assessment and plan as documented above. In brief, patient is a 65-year-old male with history of CAD and COPD presenting with 1 and 1/2 weeks of progressive shortness of breath. Patient also endorses cough productive for thick, yellow sputum as well as nausea, fevers and diarrhea. On exam he is afebrile, tachycardic at 105 bpm, regular, blood pressure stable, respiratory rate of 23 and saturating 94% on room air. Generalanxious in appearance, no acute distress HEENTnormocephalic/atraumatic, pupils equal and reactive, neck supple, moist mucous membranes Heart+ S1, S2, regular, tachycardic, no murmurs/rubs/gallops Lungsequal air entry bilaterally, diminished breath sounds throughout, no rales/rhonchi/wheezes Abdomen+ bowel sounds, soft, nontender, nondistended Extremitieswarm, well-perfused, no clubbing/cyanosis/edema Labs and images reviewed. Significant for elevated MCV of 101.5, D-dimer of 720, sodium of 123, chloride of 86 Chest CTA with no pulmonary emboli, emphysema with bronchial wall thickening suggestive of bronchitis. Extensive coronary artery calcifications. 9 x 7 mm left apical nodule suggestive of pleuralparenchymal scarring however, is new from 2007. No adenopathy Assessment/[id number] male with history of coronary artery disease, hypertension, hyperlipidemia, anxiety and COPD presenting with 1-1/2 weeks of progressive shortness of breath as well as productive cough, subjective fevers and diarrhea which has been dark in color. Suspect COPD exacerbation most likely triggered by infectious bronchitis. Admit to medical Treatment with duo nebs, Solu-Medrol, supplemental oxygen, flutter valve and azithromycin Hyponatremia work-up with serum and urine awesome's and urine sodium. Possibly secondary to diarrhea and decreased intake Follow-up chest CT in 6 months for newly discovered pulmonary nodule Remainder of plan as above Resident Activity Tracking Resident Involvement: Resident Care Provided Care Provided: Adult Hospital Medicine
[2021-01-03] MEDS ORDERED: POTASSIUM CHLORIDE 10 MEQ TABCR PO STA (21:12)
[2021-01-03] MEDS ORDERED: ROSUVASTATIN CALCIUM 20 MG TAB PO STA (21:12)
[2021-01-03] MEDS ORDERED: hydrOXYzine HCl 10 MG TAB PO ONE (21:13)
[2021-01-03] MEDS ORDERED: EZETIMIBE 10 MG TABLET PO ONE (21:13)
[2021-01-03] MEDS ORDERED: METOPROLOL TARTRATE 100 MG TAB PO SCH (21:15)
[2021-01-03] MEDS ORDERED: METOPROLOL TARTRATE 100 MG TAB PO ONE ×2 (21:15→22:15)
[2021-01-03] MEDS ORDERED: MELATONIN 3 MG TAB PO PRN (22:08)
[2021-01-03] MEDS ORDERED: POLYETHYLENE (MIRALAX) 17 GM PACK PO PRN (22:08)
[2021-01-03] MEDS ORDERED: ONDANSETRON INJ 2 MG/ML 2 ML VIAL IV PRN (22:08)
[2021-01-03] MEDS ORDERED: ALBUT/IPRATROP 3MG/0.5MG NEB 3 ML VIAL NEB PRN (22:08)
[2021-01-03] MEDS ORDERED: ALUMINUM/MAGNESIUM SUSP 30 ML UDC PO PRN (22:08)
[2021-01-03] MEDS ORDERED: PNEUMOCOCCAL POLYSACCHARIDES 25 MCG/0.5 ML VIAL/SYR IM ONE (22:29)
[2021-01-03] MEDS: ALBUT/IPRATROP 3MG/0.5MG NEB 3 ML VIAL NEB SCH (23:15)
--- NOTE | 2021-01-03 23:47 | Billing Data ---
Date of Service January 03, 2021 Coding Level of Care Code 22460 Initial Inpt Care Lvl 2
[2021-01-04] MEDS: SODIUM CHLORIDE 0.9% 1000ML 1,000 ML IV SCH ×3 (02:19→21:10)
[2021-01-04 02:24] LABS: BUN Creatinine Ratio 14.1 (10-20); Creatinine Clr Calc Pharmacy 72.4 ml/min; Est GFR (African American) 112.5 ml/min; Est GFR (Non-African American) 97.1 ml/min; Potassium 4.5 mmol/L (3.5-5.1)
[2021-01-04] MEDS: ALBUT/IPRATROP 3MG/0.5MG NEB 3 ML VIAL NEB SCH ×6 (03:06→22:13)
[2021-01-04 06:45] LABS: Hemoglobin 13.6 g/dL (14.0-18.0); Immature Granulocytes # (auto) 0.01 K/uL (0.00-0.02); Immature Granulocytes % (auto) 0.2 %; Lymphocytes # (auto) 0.87 K/uL (1.2-3.4); Lymphocytes % (auto) 13.3 %; Mean Corpuscular Hemoglobin 34.6 pg (25-34); Mean Corpuscular Hgb Conc 34.9 g/dL (32-36); Mean Corpuscular Volume 99.2 fL (80-100); Monocytes # (auto) 0.56 K/uL (0.11-0.59); Monocytes % (auto) 8.5 %; Neutrophils # (auto) 5.12 K/uL (1.4-6.5); Platelet Count 148 K/uL (130-400); RDW Coefficient of Variation 12.2 % (11.5-14.5); RDW Standard Deviation 44.7 fL (36.4-46.3); Red Blood Count 3.93 M/uL (4.7-6.1); White Blood Count 6.56 K/uL (4.8-10.8)
[2021-01-04 07:10] LABS: Albumin Level 3.3 gm/dl (3.4-5.0); BUN Creatinine Ratio 19.9 (10-20); Calcium 8.2 mg/dl (8.5-10.1); Creatinine Clr Calc Pharmacy 111.7 ml/min; Est GFR (African American) 134.5 ml/min; Potassium 3.9 mmol/L (3.5-5.1)
[2021-01-04 07:12] LABS: Albumin Globulin Ratio 1.2 (0.9-2); Bilirubin,Total 0.3 mg/dl (0.2-1); Globulin 2.7 gm/dl (2.5-4.0)
[2021-01-04 07:39] LABS: Folate (Folic Acid) > 20.00 ng/ml (>5.38); Vitamin B12 385 pg/ml (193-986)
[2021-01-04] MEDS ORDERED: CALCIUM CARBONATE 500 MG CHEWABLE TAB PO PRN (08:15)
[2021-01-04] MEDS: EZETIMIBE 10 MG TABLET PO SCH (08:28)
[2021-01-04] MEDS: AZITHROMYCIN 250 MG TAB PO SCH (08:28)
[2021-01-04] MEDS: ASPIRIN 81 MG ECTAB PO SCH (08:28)
[2021-01-04] MEDS: ROSUVASTATIN CALCIUM 20 MG TAB PO SCH (08:29)
[2021-01-04] MEDS: FOLIC ACID 1 MG TAB PO SCH (08:29)
[2021-01-04] MEDS: lisinopril 20 MG TAB PO SCH (08:29)
[2021-01-04] MEDS: UMECLIDINIUM BROMIDE 62.5MCG/BLISTER 7 PUFFS/INHALER INH SCH (08:30)
[2021-01-04] MEDS: METOPROLOL TARTRATE 100 MG TAB PO SCH ×2 (08:30→21:04)
--- NOTE | 2021-01-04 08:31 | Hospitalist Progress Note ---
Date of Service January 04, 2021 Assessment & Plan (1) COPD exacerbation: Plan: 65 yo M with hx sudden cardiac arrest s/p RCA stent, CAD, HTN, HLD, COPD, current smoker admitted for COPD exacerbation and hyponatremia. COPD Exacerbation - duoneb tx x2 in ER, methylpred 125 IV - new O2 requirement of 2L NC - duonebs Q4H sched, Q2H PRN ordered - goal O2 88 - 96%, wean as tolerated - flutter valve - CTA w/ evidence of bronchitis, chronic pulm nodules that will need follow up, no sign of pneumonia recommend pulmonary nodule clinic follow-up - in setting of diarrhea + pulmonary exacerbation, legionella ag pending -Azithromycin 500 mg x 3-day dosing - encourage smoking cessation (2) Hyponatremia: Plan: Hyponatremia - likely secondary to progressive diarrhea and dehydration & daily beer intake with 1 TV dinner daily for nutrition - no thiazide use - with decreased urination, decreased likelihood of osmotic hyponatremia - VBG and BMP indicative of nongap metabolic acidosis - BMP Q4H, goal sodium increase of <8 meq/24 h - urine Na 498, sosm 268, urine na 38. Continue volume repletion and remeasure - nephro consulted. IV fluid decreased to 75 cc/h, sodium checks every 6 hours, liberalize salt diet, repeat urine in the morning. Appreciate recommendations. - holding lasix (3) Smoking: Plan: May use patch if cravings, deferred at this time due to increased anxiety and tremulousness (4) Hypertension: Plan: - Continue SARKIS, MTP as noted in CAD (5) Hypercholesterolemia: Plan: - Continue rosuvastatin (6) CAD (coronary artery disease): Plan: - Continue lisinopril - Continue MTP 200mg BID - Continue Aspirin - Continue rosuvastatin (7) COPD (chronic obstructive pulmonary disease): Plan: - See COPD exacerbation (8) Elevated d-dimer: Plan: - likely due to viral infection causing COPD ex, - CTA Chest negative for PE, no sx or swelling indicative of DVT, no hx clotting (9) Lung nodule: Plan: Chest CTA revealed a 9X 7 mm left apical nodule suggestive of pleuralparenchymal scarring however, is new from 2007. A 6-month follow-up chest CT is recommended and referred to lung nodule program (10) Daily consumption of alcohol: Plan: - 3 to 4 beers daily, no history of withdrawal/DTs - Last drink evening 01/02 - Pt reports increased anxiety, denies tremors/hallucinations/sweats/chills/palpitations. -Patient initially appeared well with normal heart rate and reasonable blood pressure, however has become increasingly anxious and feeling "shaky "throughout the day with increased tachycardia. He reports that he feels like his anxiety is worse, and while this could be due to his underlying COPD exacerbation with additional anxiety from the steroids and concerned about withdrawal. Patient initially placed on at risk it AVSS, converted to active protocol and transferred to med telemetry for increased level of care and monitoring. (11) Anxiety: Plan: - patient has seen a therapist and psychiatry as outpatient who is interested in seeing again Psych consulted, appreciate recommendations Continue lorazepam every 4 hours as needed, note patient also on KYLE S Anticipate anxiety may be worse in the setting of steroid treatment Patient previously on Lexapro, but with severe fatigue. SSRI not appropriate at this time given hyponatremia Plan: DVT ppx: SCD FEN/GI: heart healthy, famotidine PO Bowel regimen: NA; hemoccult stool Code Status: full code Dispo: med/surg Admission and Anticipated Discharge Date Admission Date: January 03, 2021 Kulwant Hurley is seen at the bedside with his son in the room. He reports that he is having a panic attack, and feels very anxious. He denies palpitations difficulty breathing at time of visit but endorses feeling tremulous and shaky with some shortness of breath and cough. Skin is warm and dry, denies sweats. He has also been seen by psychiatry today who note that his difficulty breathing with underlying COPD is complicated by his anxiety which is likely to be worse while on steroids, and would benefit from targeted benzodiazepine use in the short-term for this anxiety. Denies fever, chills, abdominal pain, nausea vomiting, hallucinations, and confusion. Discussed that his tachycardia, increased anxiety, and tremulousness could be from COPD and his steroids, but given his longtime use of daily alcohol which also may be a factor in his low sodium will transfer for further monitoring and withdrawal treatment. Review of Systems Review of Systems: Constitutional: Denies fever, chills. Endorses tremulousness Eyes: Denies vision change ENT: Denies ear pain, sore throat, sinus pain Cardiovascular: Denies Chest pain, chest pressure, palpitations, extremity swelling Respiratory: Endorses cough, difficulty breathing worsened with anxiety Gastrointestinal: Denies abdominal pain, nausea, vomiting, constipation, diarrhea Genitourinary: Denies dysuria, urinary frequency Musculoskeletal: Denies acute focal weakness, muscle aches/pain, joint aches/pain Integumentary:Denies acute rash, lesions, bruising Neurological: Denies headache, numbness, tingling, hallucinations. Endorses feeling shaky Physical Exam Physical Exam: General: Certain oriented to name, place, date. Follows 1 and two-step commands. Appears anxious. Appears frail. Skin: Warm, slightly sweaty but not diaphoretic HEENT: Atraumatic, normocephalic. Pupils equal and reactive to light and accommodation. Visual acuity grossly intact. Pulm: Scattered inspiratory and expiratory wheezes, no rales. Symmetrical chest rise. No respiratory distress. Cardiac: Tachycardic , -mrg. Radial pulses intact and symmetrical. Abdominal: Nontender, nondistended, soft. BS present. RUE: 5/5 Elbow flexion/extension, wrist flexion/extension 5/5 advertising sales executive strength, finger flexion/extension, interosseus LUE: 5/5 Elbow flexion/extension, wrist flexion/extension 5/5 advertising sales executive strength, finger flexion/extension, interosseus COORD: Negative nose without dysmetria, no tremor appreciated at extension or rest. Results & Data Results & Data ([facility]) Vital Signs (Past 12 Hours) Vital Signs Temp Pulse Pulse Resp BP BP Pulse Ox 01/04/21 07:24 95 H 18 95 01/04/21 03:07 87 18 97 01/03/21 23:17 86 22 98 01/03/21 21:45 36.8 C 111 H 20 154/84 H 97 01/03/21 21:13 112 H 22 134/78 98 01/03/21 20:22 98 Pulse Ox 01/04/21 07:24 01/04/21 03:07 01/03/21 23:17 01/03/21 21:45 97 01/03/21 21:13 01/03/21 20:22 PG Care Time/CCT Total # of Minutes Spent Total Time Spent with Patient: Total time spent is greater than 50% in coordination of care (as documented) at patient's floor/unit and/or counseling patient: Coding Level of Care Code 25687 Subseq Hosp Care Lvl 3 Diagnoses COPD exacerbation J44.1 Smoking F17.200 Hypertension I10 Hypercholesterolemia E78.00 CAD (coronary artery disease) I25.10 COPD (chronic obstructive pulmonary disease) J44.9 COPD type: unspecified COPD Hyponatremia E87.1 Elevated d-dimer R79.89 Lung nodule R91.1 Daily consumption of alcohol Z78.9 Anxiety F41.9 (1) COPD (chronic obstructive pulmonary disease) COPD type: unspecified COPD Qualified Code(s): J44.9 - Chronic obstructive pulmonary disease, unspecified
[2021-01-04] MEDS ORDERED: FOLIC ACID 1 MG TAB PO SCH (09:00)
--- NOTE | 2021-01-04 09:39 | Electrocardiogram Report ---
Test Reason : Blood Pressure : / mmHG Vent. Rate : 094 BPM Atrial Rate : 094 BPM P-R Int : 122 ms QRS Dur : 074 ms QT Int : 346 ms P-R-T Axes : 089 064 073 degrees QTc Int : 432 ms Poor data quality, interpretation may be adversely affected Sinus rhythm with Premature atrial complexes Biatrial enlargement Septal infarct (cited on or before 03-JAN-2021) Abnormal ECG When compared with ECG of 03-JAN-2021 16:50, (unconfirmed) Premature atrial complexes are now Present Confirmed by Andreas Burk [id number] on 01/04/2021 9:38:51 AM Referred By: REFERRED SELF Confirmed By:Andreas Burk
--- NOTE | 2021-01-04 09:41 | Electrocardiogram Report ---
Test Reason : Blood Pressure : / mmHG Vent. Rate : 090 BPM Atrial Rate : 090 BPM P-R Int : 122 ms QRS Dur : 072 ms QT Int : 372 ms P-R-T Axes : 088 069 069 degrees QTc Int : 455 ms Poor data quality, interpretation may be adversely affected Normal sinus rhythm Possible Left atrial enlargement Septal infarct , age undetermined Abnormal ECG When compared with ECG of 13-SEP-2008 13:04, QRS duration has decreased Septal infarct is now Present T wave inversion now evident in Anterior leads Confirmed by Andreas Burk [id number] on 01/04/2021 9:41:03 AM Referred By: REFERRED SELF Confirmed By:Andreas Burk
[2021-01-04 09:56] LABS: BUN Creatinine Ratio 16.8 (10-20); Calcium 8.2 mg/dl (8.5-10.1); Creatinine Clr Calc Pharmacy 91.8 ml/min; Est GFR (African American) 124.1 ml/min; Potassium 3.9 mmol/L (3.5-5.1)
[2021-01-04] MEDS: NICOTINE 7 MG/24 HR TDSY TD PRN (10:38)
[2021-01-04] MEDS: ACETAMINOPHEN 325 MG TAB PO PRN (11:28)
[2021-01-04] MEDS ORDERED: MULTI-VITAMIN INFUSION 10 ML, THIAMINE HCL 100 MG, FOLIC ACID 1 MG in SODIUM CHLORIDE 0... IV ONE (11:59)
[2021-01-04] MEDS ORDERED: LORazepam 1 MG TAB PO PRN ×2 (11:59→15:50)
--- NOTE | 2021-01-04 12:24 | Nephrology Consultation ---
Date of Consultation January 04, 2021 Assessment & Plan (1) Hyponatremia: (2) COPD exacerbation: (3) Hypertension: (4) Lung nodule: 65-year-old male admitted with COPD exacerbation with almost 10 days history of progressive shortness of breath, chills, night sweat and 5 days history of diarrhea. no personal history of malignancy although has history of smoking, regular alcohol intake and weight loss and loss of appetite over last 6 months. On admission thought to be volume depleted and started on normal saline with that sodium improved from 06/14 on admission to 126 this morning. Hyponatremia most likely multifactorial including volume depletion with ongoing diarrhea, COPD exacerbation and stress. new finding of lung nodule is of concern with history of smoking, weight loss. Na improved to 126. BP has been running high. --decrease IV fluid to 75 ml/h, monitor S Na Q6h --encourage increasing protein in diet, suggest adding Boost --liberalize salt in diet --check TSH --repeat U osm in am --will need to monitor the lung nodule as an outpatient ( already referred [facility]) Will follow Thank you for allowing me to participate in your patient's care. It was a pleasure to see Mr. Condon History of Present Illness Reason for Consultation: Hyponatremia Attending Physician: Kenji Manriquez MD History of Present Illness Mr. Condon is a 65 yo M with PMH significant for CAD, COPD, long history of smoking, admitted to the hospital with COPD exacerbation. Nephrology consult was requested to manage hyponatremia. EMR records are reviewed in detail during patient's visit. Mr. Condon presented to ER with progressive shortness of breath for more than a week. He was started on Augmentin and Prednisone on 12/25 without much improvement. on admission he was diagnosed with COPD exacerbation, received IV methylprednisolone but not on any prednisone at this time. He is on inhaler and azithromycin. He also reports having diarrhea for several days and having chills and night sweats, had nausea but no abdominal pain or vomiting. He was reported to be at an [employer] meeting 5 days ago with 4 other people in a large room. He also reports going through lot of stresses lately, his ex several days ago from cancer. Admission lab was notable for hyponatremia with serum sodium 123. he was thought to be volume depleted with history of diarrhea and started on normal saline which is currently running at 125 mL/hour. Serum osmolality 168, urine osmolality was 497 and urine sodium was 38. Has not been on thiazide diuretics, denies taking regular NSAIDs. normal renal function with creatinine 0.5 with baseline creatinine around 1. LFTs were normal. Blood pressure has been stable without hypotension. no personal history of malignancy. Current active smoker, smokes 1 pack over 3 days. Drinks 3-4 beers per day. He reports more than 15 pound weight loss over last 6 months along with loss of appetite. CT abdomen pelvis was otherwise unremarkable except a 9 millimeter apical right lung nodule. No history of hypothyroidism or adrenal insufficiency. He reports persistent shortness of breath, anxiety and generalized weakness. Appetite remains poor. Allergies Allergy/AdvReac Type Severity Reaction Status Date / Time atorvastatin Allergy muscle Verified 01/03/21 17:06 weakness, myalgia escitalopram [From Lexapro] Allergy Fatigued Verified 01/03/21 17:06 Home Medications Medication Instructions Recorded Confirmed Type vitamin B complex 1 tab PO DAILY 01/26/19 01/03/21 History sildenafil 50 mg tablet 50 mg PO DAILY PRN #6 tab 02/09/19 01/03/21 Rx folic acid 1 mg tablet 1 mg PO DAILY #90 tab 01/30/20 01/03/21 Rx lisinopril 20 mg tablet 20 mg PO DAILY #90 tab 03/11/20 01/03/21 Rx metoprolol tartrate 100 mg tablet 100 mg PO BID #180 tab 04/25/20 01/03/21 Rx tiotropium bromide 18 mcg capsule 1 cap INH DAILY #30 puffs 04/25/20 01/03/21 Rx with inhalation device (Spiriva with HandiHaler) ezetimibe 10 mg tablet 10 mg PO DAILY #90 tab 06/25/20 01/03/21 Rx furosemide 20 mg tablet 20 mg PO DAILY #90 tab 06/25/20 01/03/21 Rx rosuvastatin 20 mg tablet 20 mg PO DAILY #90 tab 06/25/20 01/03/21 Rx albuterol sulfate 90 mcg/actuation 2 puff INHALATION QID PRN #18 g 08/01/20 01/03/21 Rx aerosol inhaler (ProAir HFA) potassium chloride 10 mEq 10 meq PO DAILY #90 tab 09/15/20 01/03/21 Rx tablet,extended release aspirin 81 mg tablet,delayed 81 mg PO DAILY 01/03/21 01/03/21 History release (Aspirin Low Dose) Patient History Medical History Actinic keratosis Brain anoxic injury Controlled substance agreement broken History of cardiac arrest Hypercholesterolemia Hypertension Impaired fasting glucose Inflamed seborrheic keratosis Insomnia Memory loss Venous insufficiency Surgical History History of coronary artery stent placement Status post angioplasty Family History Brother Alcohol abuse Crohn's disease Drug abuse Depression Mother Colorectal cancer COPD (chronic obstructive pulmonary disease) Dementia Breast cancer Father Colorectal cancer Cardiac disorder Myocardial infarction Family/Other Colorectal cancer siblings Sister Thyroid disease Denies family history of Ovarian cancer Prostate cancer Social History Smoking Status: Current some day smoker Tobacco Type: Cigarettes Age Started Using Tobacco: 13; Cigarettes Per Day: 1 pack per 3 days; Second Hand Exposure: No; Do You Dip or Chew Tobacco: No; Tobacco Cessation Education Requested by Patient: No Hx Alcohol Use: Yes Alcohol type: beer Alcohol Intake Frequency: 4 or More x per/Week Alcohol Intake Frequency Comment: 3 beers per day Hx Substance Use: No Preferred Language: Finnish Communication Ability: Effective Visual Impairment: No Limitations Hearing Ability: Normal Ocean Freight Agent Required: No Beliefs That Will Affect Care: None marital status: Current Living Situation: Alone current occupational status: retired 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 Review of Systems Review of Systems: detailed review of system was otherwise unremarkable e xcept noted in HPI Physical Exam Constitutional: + acute distress, + ill appearing and + thin Eyes: PERRL, conjunctivae normal, anicteric sclerae ENMT: external ear and nose normal, oropharynx normal Ears: no hearing impairment Neck: trachea midline Respiratory: + respiratory distress and + uses accessory muscles; no cough Auscultation: + diminished lung sounds and + wheezes; no crackles and no rales Cardiovascular: RRR, no murmur, no edema Gastrointestinal (Abdomen): Inspection/Auscultation: normal bowel sounds Percussion/Palpation: abdomen nontender, no guarding and abdomen not rigid Musculoskeletal: Extremities: extremities normal to inspection Skin: no rashes, warm and dry Neurologic: awake; no focal motor deficits and not confused Psychiatric: A+Ox3, euthymic affect Results & Data ([facility]) Vital Signs (Past 12 Hours) Vital Signs Temp Pulse Resp BP Pulse Ox 01/04/21 11:15 88 18 95 01/04/21 10:40 86 20 96 01/04/21 10:37 87 24 77 L 01/04/21 07:25 36.8 C 100 H 20 150/86 H 90 01/04/21 07:24 95 H 18 95 01/04/21 03:07 87 18 97 PG Care Time/CCT Total # of Minutes Spent Total Time Spent with Patient: Total time spent is greater than 50% in coordination of care (as documented) at patient's floor/unit and/or counseling patient: Coding Level of Care Code 04010 Inpt Consult Level 5 Diagnoses Hyponatremia E87.1 COPD exacerbation J44.1 Hypertension I10 Lung nodule R91.1
[2021-01-04] MEDS: THIAMINE HCL 100 MG TAB PO SCH (12:40)
[2021-01-04 13:38] LABS: BUN Creatinine Ratio 16.2 (10-20); Calcium 8.3 mg/dl (8.5-10.1); Creatinine Clr Calc Pharmacy 88.6 ml/min; Est GFR (African American) 122.3 ml/min; Est GFR (Non-African American) 105.5 ml/min
[2021-01-04 13:46] LABS: Thyroid Stimulating Hormone 0.426 uIu/ml (0.300-4.500)
[2021-01-04] MEDS ORDERED: LORazepam 1 MG/2 ML VIAL IV PRN ×2 (15:34→20:51)
[2021-01-04] MEDS ORDERED: LORazepam 1 MG TAB PO STA (15:49)
--- NOTE | 2021-01-04 16:08 | Psychiatric Consultation ---
Date of Consultation January 04, 2021 Impression / Recommendations Impression This is a 65-year-old male with COPD presenting with anxiety and panic attack- like symptoms. Patient's difficulty breathing is likely worsened by his anxiety and he will benefit from medication changes to address this. Given the recent change in his medication regimen, it is likely that some of the anxiety can be attributed to the steroids. Patient should follow-up with outpatient psychiatric providers but in the meantime will benefit from benzodiazepine use to target his anxiety. (1) Anxiety: Lorazepam 1 mg p.o. every 4 hours as needed Psych History Chief Complaint "I'm having a panic attack". History of Present Illness HPI as per psychiatric liaison "Patient is a 65 year-old male from [place] who arrived to the ER with COPD exacerbation. States he had been started on prednisone on 12/25. States he has been having increased anxiety for the last 6 months and was informed his ex- on Tuesday. States he had been to her for 22 years and has 3 children with her. They had been since 1991, but remained close because of the children. The children live in [place], [place] and [place] and are supports for patient. States he had been through a lot of trauma with his ex-, and never remarried. 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 Mother and father both had colonrectal CA, eldest brother had alcohol and drug addictions and later committed suicide by gun. Patient denies any history of attempts or thoughts of suicide, but did score a 17 on the PHQ 9. States he does feel very depressed and hopeless. Has poor sleep, only sleeping 3 to 4 hours at a time and unable to lie down to rest, due to not being able to breath. States his appetite is poor and he becomes short of breath while trying to eat, which makes his anxiety worse. Feels poorly about himself and struggles with concentrating on tasks due to becoming short of breath. Denies any drug use, does admit to drinking approximately 3 beers a day, most days. Patient had seen a therapist, Hetal, from [place] he would like to see again. He would also be accepting to see a psychiatrist. Patient had seen Tay Obando, but does not know if he is still practicing. States he did trial Ambien, which was effective for sleep, but he had started calling his kids in t he middle of the night, not remembering it. He had also been on klonopin and xanax, which were both effective, but he does not wish to be on these medications either. Patient had taken lexapro, but had severe fatigue. " Upon evaluation this afternoon, patient reports increasing anxiety. He states that he frequently has these panic-like episodes where he finds it difficult to breathe. This is further complicated by his already difficult time breathing due to COPD. Patient was made aware that some of the medications used to treat COPD including albuterol, prednisone are known to increase anxiety. Patient made aware and agreeable to benzodiazepine treatment while in the hospital. Allergies Allergy/AdvReac Type Severity Reaction Status Date / Time atorvastatin Allergy muscle Verified 01/03/21 17:06 weakness, myalgia escitalopram [From Lexapro] Allergy Fatigued Verified 01/03/21 17:06 Home Medications Medication Instructions Recorded Confirmed Type vitamin B complex 1 tab PO DAILY 01/26/19 01/03/21 History sildenafil 50 mg tablet 50 mg PO DAILY PRN #6 tab 02/09/19 01/03/21 Rx folic acid 1 mg tablet 1 mg PO DAILY #90 tab 01/30/20 01/03/21 Rx lisinopril 20 mg tablet 20 mg PO DAILY #90 tab 03/11/20 01/03/21 Rx metoprolol tartrate 100 mg tablet 100 mg PO BID #180 tab 04/25/20 01/03/21 Rx tiotropium bromide 18 mcg capsule 1 cap INH DAILY #30 puffs 04/25/20 01/03/21 Rx with inhalation device (Spiriva with HandiHaler) ezetimibe 10 mg tablet 10 mg PO DAILY #90 tab 06/25/20 01/03/21 Rx furosemide 20 mg tablet 20 mg PO DAILY #90 tab 06/25/20 01/03/21 Rx rosuvastatin 20 mg tablet 20 mg PO DAILY #90 tab 06/25/20 01/03/21 Rx albuterol sulfate 90 mcg/actuation 2 puff INHALATION QID PRN #18 g 08/01/20 01/03/21 Rx aerosol inhaler (ProAir HFA) potassium chloride 10 mEq 10 meq PO DAILY #90 tab 09/15/20 01/03/21 Rx tablet,extended release aspirin 81 mg tablet,delayed 81 mg PO DAILY 01/03/21 01/03/21 History release (Aspirin Low Dose) Personal History Beliefs That Will Affect Care: None Patient History Medical History Actinic keratosis Brain anoxic injury Controlled substance agreement broken History of cardiac arrest Hypercholesterolemia Hypertension Impaired fasting glucose Inflamed seborrheic keratosis Insomnia Memory loss Venous insufficiency Surgical History History of coronary artery stent placement Status post angioplasty Family History Brother Alcohol abuse Crohn's disease Drug abuse Depression Mother Colorectal cancer COPD (chronic obstructive pulmonary disease) Dementia Breast cancer Father Colorectal cancer Cardiac disorder Myocardial infarction Family/Other Colorectal cancer siblings Sister Thyroid disease Denies family history of Ovarian cancer Prostate cancer Social History Smoking Status: Current some day smoker Tobacco Type: Cigarettes Age Started Using Tobacco: 13; Cigarettes Per Day: 1 pack per 3 days; Second Hand Exposure: No; Do You Dip or Chew Tobacco: No; Tobacco Cessation Education Requested by Patient: No Hx Alcohol Use: Yes Alcohol type: beer Alcohol Intake Frequency: 4 or More x per/Week Alcohol Intake Frequency Comment: 3 beers per day Hx Substance Use: No Preferred Language: Maltese Communication Ability: Effective Visual Impairment: No Limitations Hearing Ability: Normal Mechanical Fitter Required: No Beliefs That Will Affect Care: None marital status: Current Living Situation: Alone current occupational status: retired 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 Physical Exam Psychiatric: Orientation: alert and oriented x 3 Apperance: appropriately groomed Eye Contact: + fair eye contact Motor Behavior: no abnormal motor movements Speech: normal rate/rhythm/volume of speech Affect: + anxious affect Mood: + anxious mood Thought Process: goal directed thought process and linear/logical thought process Thought Content: reality based without delusions Suicidal Thoughts: denies suicidal thoughts Homicidal Thoughts: denies homicidal thoughts Hallucinations: no auditory hallucinations and no visual hallucinations Cognition: recent memory grossly intact Estimated Intelligence: average estimated intelligence Insight: good insight Judgement: good judgement Vital Signs (Past 24 Hours): Last Vital Signs Temp 36.7 C 01/04/21 16:05 Pulse 105 H 01/04/21 16:05 Resp 20 01/04/21 16:05 BP 190/96 H 01/04/21 16:05 Pulse Ox 93 01/04/21 16:05 Review of Systems All systems reviewed & are unremarkable except as noted in HPI & below Results & Data ([facility]) Medications Administered Acetaminophen (Acetaminophen 325 Mg Tab) 650 mg PO Q4H PRN PRN Reason: pain/fever Stop: 02/02/21 22:07 Last Admin: 01/04/21 11:28 Dose: 650 mg Documented by: [id number] Albuterol (Albut/Ipratrop 3mg/0.5mg Neb 3 Ml Vial) 3 ml NEB Q4R [facility] Stop: 02/02/21 22:59 Last Admin: 01/04/21 14:44 Dose: 3 ml Documented by: [id number] Admin: 01/04/21 11:13 Dose: 3 ml Documented by: [id number] Admin: 01/04/21 07:23 Dose: 3 ml Documented by: [id number] Admin: 01/04/21 03:06 Dose: 3 ml Documented by: [id number] Admin: 01/03/21 23:15 Dose: 3 ml Documented by: [id number] Aspirin (Aspirin 81 Mg Ectab) 81 mg PO DAILY [facility] Stop: 02/03/21 08:59 Last Admin: 01/04/21 08:28 Dose: 81 mg Documented by: [id number] Azithromycin (Azithromycin 250 Mg Tab) 500 mg PO QAM [facility] Stop: 01/10/21 08:59 Last Admin: 01/04/21 08:28 Dose: 500 mg Documented by: [id number] Calcium Carbonate (Calcium Carbonate 500 Mg Chewable Tab) 500 mg PO Q4H PRN PRN Reason: Indigestion Stop: 02/03/21 08:14 Last Admin: 01/04/21 08:27 Dose: 500 mg Documented by: [id number] Ezetimibe (Ezetimibe 10 Mg Tablet) 10 mg PO DAILY [facility] Stop: 02/03/21 08:59 Last Admin: 01/04/21 08:28 Dose: 10 mg Documented by: [id number] Folic Acid (Folic Acid 1 Mg Tab) 1 mg PO DAILY [facility] Stop: 02/03/21 08:59 Last Admin: 01/04/21 08:29 Dose: 1 mg Documented by: [id number] Sodium Chloride (Nss 1000ml) 1,000 mls @ 75 mls/hr IV .[id number] [facility] Stop: 02/02/21 18:14 Last Infusion: 01/04/21 12:55 Dose: 75 mls/hr Documented by: [id number] Infusion: 01/04/21 06:48 Dose: 125 mls/hr Documented by: [id number] Admin: 01/04/21 02:19 Dose: 125 mls/hr Documented by: [id number] Infusion: 01/04/21 02:19 Dose: 125 mls/hr Documented by: [id number] Admin: 01/03/21 18:19 Dose: 125 mls/hr Documented by: [id number] Lisinopril (Lisinopril 20 Mg Tab) 20 mg PO DAILY [facility] Stop: 02/03/21 08:59 Last Admin: 01/04/21 08:29 Dose: 20 mg Documented by: [id number] Metoprolol Tartrate (Metoprolol Tartrate 100 Mg Tab) 100 mg PO BID [facility] Stop: 02/03/21 08:59 Last Admin: 01/04/21 08:30 Dose: 100 mg Documented by: [id number] Nicotine (Nicotine 7 Mg/24 Hr Tdsy) 7 mg TD QAM PRN PRN Reason: agitation Stop: 02/02/21 22:07 Last Admin: 01/04/21 10:38 Dose: 7 mg Documented by: [id number] Rosuvastatin Calcium (Rosuvastatin Calcium 20 Mg Tab) 20 mg PO DAILY [facility] Stop: 02/03/21 08:59 Last Admin: 01/04/21 08:29 Dose: 20 mg Documented by: [id number] Thiamine HCl (Thiamine Hcl 100 Mg Tab) 100 mg PO QAM [facility] Stop: 02/03/21 08:59 Last Admin: 01/04/21 12:40 Dose: 100 mg Documented by: [id number] Umeclidinium [place] (Umeclidinium [place] 62.5mcg/Blister 7 Puffs/Inhaler) 1 puffs INH DAILY [facility] Stop: 02/03/21 08:59 Last Admin: 01/04/21 08:30 Dose: 1 puffs Documented by: [id number] Coding Level of Care Code 38866 U Intl Hosp Care Lvl 2 Diagnoses Anxiety F41.9 Time Spent (min) 45
[2021-01-04] MEDS ORDERED: THIAMINE HCL 500 MG in 0.9 % SODIUM CHLORIDE 100 ML IV STA (17:32)
[2021-01-04 17:33] LABS: BUN Creatinine Ratio 19.1 (10-20); Calcium 7.8 mg/dl (8.5-10.1); Creatinine Clr Calc Pharmacy 109.4 ml/min; Est GFR (African American) 133.3 ml/min; Potassium 3.9 mmol/L (3.5-5.1)
[2021-01-04] MEDS ORDERED: LORazepam 1 MG/2 ML VIAL IV STA (17:48)
[2021-01-04] MEDS ORDERED: LORazepam 3 MG/6 ML VIAL IV PRN (20:51)
[2021-01-04] MEDS ORDERED: ATIVAN IV ALCOHOL WITHDRAWL IV PRN (20:51)
[2021-01-04] MEDS ORDERED: LORazepam 2 MG/4 ML VIAL IV PRN (20:51)
[2021-01-04 23:31] LABS: BUN Creatinine Ratio 17.1 (10-20); Calcium 7.9 mg/dl (8.5-10.1); Creatinine Clr Calc Pharmacy 104.9 ml/min; Est GFR (African American) 131.1 ml/min; Est GFR (Non-African American) 113.1 ml/min; Potassium 3.7 mmol/L (3.5-5.1)
[2021-01-05] MEDS: ALBUT/IPRATROP 3MG/0.5MG NEB 3 ML VIAL NEB SCH ×6 (03:03→22:29)
[2021-01-05] MEDS: ACETYLCYSTEINE 20% INHAL SOLN 4ML ***DISPENSED BY RESP. INH SCH ×2 (03:57→07:21)
[2021-01-05 05:51] LABS: iSTAT Allen Test Pass; iSTAT Art Bld Gas pCO2 Correct 108 mmHg (35-46); iSTAT Art Bld Gas pH Corrected 7.131 (7.35-7.45); iSTAT Arterial Blood Gas HCO3 36 meg/L (19-24); iSTAT Arterial Blood Gas pCO2 109 mmHg (35-46); iSTAT Arterial Blood Gas pH 7.13 (7.35-7.45); iSTAT Arterial Blood Gas pO2 109 mmHg (80-95); iSTAT Arterial Blood Gas pO2 C 107; iSTAT Carbon Dioxide 39 mmol/L (24-31); iSTAT Hematocrit 47 % (42-52); iSTAT Potassium 4.3 mmol/L (3.3-5.0); iSTAT Site R Radial; iSTAT Sodium 129 mmol/L (135-144)
--- NOTE | 2021-01-05 05:53 | Communication Note ---
Date of Service: January 05, 2021 Overnight events -- Notified by nursing patient was sounding more wet, still not coughing up any sputum despite raspy noises. CXR ordered -- no visible difference from admission, no sign of pneumonia, pulmonary edema. ~3am RT able to give breathing treatment, recommended NT suctioning, which yielded sputum sample and mild improvement in breathing/tachypnea. ~5 am checked on patient at bedside with nursing, marked increased work of breathing compared to admission, not speaking, not responding to commands, more somnolent. satting 95% on 2L NC. Tachypnic at 26 RR. ABG by RT: 7.127/109/109/36. Started on Bipap / per RT recommendations to help blow off CO2. will recheck ABG at 8 AM to check progress with CO2 and acidosis improvement. Appears to be due to muscle fatigue with Exacerbation in end stage COPD, protein-calorie malnourishment. Prognosis guarded at this time, patient would likely not do well coming off ventilator if requiring intubation. I did discuss this situation with him at admission, and he was adamant that he wanted to be full code and wanted intubation to help him "get through this" even though he had a DNR/DNI on his will. 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
[2021-01-05] MEDS ORDERED: ALBUT/IPRATROP 3MG/0.5MG NEB 3 ML VIAL NEB STA (06:37)
[2021-01-05] MEDS ORDERED: methylPREDNISolone 125 MG in SYRINGE 0 ML IV STA (06:39)
--- NOTE | 2021-01-05 07:05 | XRay Report ---
XR chest 1V portable HISTORY: 65 years-old Male wheezing acute wheezing COMPARISON: Chest radiograph and CTA chest 01/03/2021 TECHNIQUE: Portable AP view of the chest FINDINGS: Limited exam secondary to positioning. Emphysema with unchanged left greater than right interstitial coarsening. No pneumothorax, pleural effusion, overt pulmonary edema or lobar airspace consolidation. Bones appear grossly intact. IMPRESSION: Emphysema without acute process. ACT 112: Negative or not required by law. The above report was generated using voice recognition software. It may contain grammatical, syntax o r spelling errors. Electronically signed by: Doug Kim M.D. 01/05/2021 7:04 AM
[2021-01-05 07:25] LABS: iSTAT Allen Test Pass; iSTAT Art Bld Gas pCO2 Correct 86 mmHg (35-46); iSTAT Arterial Blood Gas HCO3 34 meg/L (19-24); iSTAT Arterial Blood Gas pCO2 86 mmHg (35-46); iSTAT Arterial Blood Gas pO2 206 mmHg (80-95); iSTAT Arterial Blood Gas pO2 C 206; iSTAT Carbon Dioxide 36 mmol/L (24-31); iSTAT FiO2 50 %; iSTAT Hematocrit 43 % (42-52); iSTAT Hemoglobin 14.6 g/dl (14.0-18.0); iSTAT Potassium 3.9 mmol/L (3.3-5.0); iSTAT Site R Radial; iSTAT Sodium 127 mmol/L (135-144)
[2021-01-05] MEDS: UMECLIDINIUM BROMIDE 62.5MCG/BLISTER 7 PUFFS/INHALER INH SCH (08:26)
[2021-01-05] MEDS: THIAMINE HCL 100 MG TAB PO SCH (08:26)
[2021-01-05] MEDS: AZITHROMYCIN 250 MG TAB PO SCH (08:26)
[2021-01-05] MEDS: FOLIC ACID 1 MG TAB PO SCH (08:26)
[2021-01-05] MEDS: ROSUVASTATIN CALCIUM 20 MG TAB PO SCH (08:26)
[2021-01-05] MEDS: EZETIMIBE 10 MG TABLET PO SCH (08:26)
[2021-01-05] MEDS: ASPIRIN 81 MG ECTAB PO SCH (08:26)
--- NOTE | 2021-01-05 08:30 | Critical Care Consultation ---
Date of Consultation January 05, 2021 Assessment & Plan (1) COPD exacerbation: 65-year-old male with a history of oxygen dependent COPD, lung nodule, hypertension, alcoholism and coronary artery disease presenting to the hospital due to COPD exacerbation. He was found to be obtunded on the conteh and ultimately transferred to ICU for hypercapnic respiratory failure. Neurologic: Patient currently obtunded but this is slowly improving with resolution of hypercapnia. Continue BiPAP support. Avoid sedating agents. Ativan on hold. There is a history of possible alcohol intake. Continue thiamine. CT head without contrast ordered. Metabolic encephalopathy may be playing a role as well. Delirium precautions. Pulmonary: Continue BiPAP support. Avoid hyperoxia. Recheck ABG in 1 hour. Continue intravenous Solu-Medrol. Continue neb therapy and vest therapy. 9 x 7 mm lung nodule in the CT chest in 6 months for follow-up. Cardiovascular: Hold p.o. antihypertensives given his mild relative hypotension. EKG from 01/03/2021 without evidence of ischemia. Trend troponin. Gastrointestinal: N.p.o. given altered mental status. Renal: Monitor hyponatremia. Likely due to poor solute intake. Possibility of SIADH given acute COPD exacerbation. He also has a 9 x 7 mm lung nodule. Infectious disease: Obtain blood cultures, urinalysis and procalcitonin level. Continue azithromycin. Ceftriaxone started. Hematologic: Repeat CBC is pending. Endocrine: Glucose management per ICU protocol. TSH checked 01/04/2021 within normal limits. VTE prophylaxis: Lovenox CODE STATUS: Full code. Prognosis poor. Palliative care consult. Family at bedside: None available at bedside. Disposition: ICU at this time. I have personally spent 35 minutes of critical care time in the direct management of this patient. This is a life/limb threatening event. This includes time spent evaluating patient, direct bedside care, chart review, placing orders, interpretation of diagnostic studies, discussion with consultants, patient, and family members, as well as other required patient management activities. This time is exclusive of all separately billable procedures, and teaching time and separate from and in addition to any other critical care service time. Thank you for allowing us to participate in the care of this patient. (2) Acute and chronic respiratory failure with hypercapnia: (3) Altered mental state: (4) Hyponatremia: History of Present Illness Reason for Consultation: Altered mental status and hypercapnic respiratory failure Attending Physician: Juan R Lopez DO History of Present Illness History unobtainable from the patient due to severe altered mental status. History is obtained from discussion with the bedside nursing and chart review. Patient was admitted to the hospital on 01/03/2021. He has a history of CAD and COPD. He was started as an outpatient on Augmentin due to concern of bacterial sinusitis. He was also given steroids without improvement. Patient was reportedly having worsening shortness of breath for the past 2 weeks. On the floor he was being treated for COPD exacerbation with azithromycin, duo nebs and steroids. There is also concern of hyponatremia and nephrology was consulted. Nephrology feels that the hyponatremia was multifactorial. Overnight he was becoming more confused and tachypneic. He was transferred over to the ICU due to somnolence. ABG obtained on 01/05/2021 at 5:32 AM was 7.13/109/109. Repeat ABG on BiPAP he is 7.2/86/206. CBC from this morning is pending. Sodium at 7:11 AM it is 127. Chest x-ray from yesterday without acute findings. Allergies Allergy/AdvReac Type Severity Reaction Status Date / Time atorvastatin Allergy muscle Verified 01/03/21 17:06 weakness, myalgia escitalopram [From [employer]: water] Allergy Fatigued Verified 01/03/21 17:06 Home Medications Medication Instructions Recorded Confirmed Type vitamin B complex 1 tab PO DAILY 01/26/19 01/03/21 History sildenafil 50 mg tablet 50 mg PO DAILY PRN #6 tab 02/09/19 01/03/21 Rx folic acid 1 mg tablet 1 mg PO DAILY #90 tab 01/30/20 01/03/21 Rx lisinopril 20 mg tablet 20 mg PO DAILY #90 tab 03/11/20 01/03/21 Rx metoprolol tartrate 100 mg tablet 100 mg PO BID #180 tab 04/25/20 01/03/21 Rx tiotropium bromide 18 mcg capsule 1 cap INH DAILY #30 puffs 04/25/20 01/03/21 Rx with inhalation device (Spiriva with HandiHaler) ezetimibe 10 mg tablet 10 mg PO DAILY #90 tab 06/25/20 01/03/21 Rx furosemide 20 mg tablet 20 mg PO DAILY #90 tab 06/25/20 01/03/21 Rx rosuvastatin 20 mg tablet 20 mg PO DAILY #90 tab 06/25/20 01/03/21 Rx albuterol sulfate 90 mcg/actuation 2 puff INHALATION QID PRN #18 g 08/01/20 01/03/21 Rx aerosol inhaler (ProAir HFA) potassium chloride 10 mEq 10 meq PO DAILY #90 tab 09/15/20 01/03/21 Rx tablet,extended release aspirin 81 mg tablet,delayed 81 mg PO DAILY 01/03/21 01/03/21 History release (Aspirin Low Dose) Patient History Medical History (Updated 01/05/21 @ 08:33 by Trung Leigh MD) Actinic keratosis Acute and chronic respiratory failure with hypercapnia Altered mental state Brain anoxic injury Controlled substance agreement broken History of cardiac arrest Hypercholesterolemia Hypertension Hyponatremia Impaired fasting glucose Inflamed seborrheic keratosis Insomnia Memory loss Venous insufficiency Surgical History History of coronary artery stent placement Status post angioplasty Family History Brother Alcohol abuse Crohn's disease Drug abuse Depression Mother Colorectal cancer COPD (chronic obstructive pulmonary disease) Dementia Breast cancer Father Colorectal cancer Cardiac disorder Myocardial infarction Family/Other Colorectal cancer siblings Sister Thyroid disease Denies family history of Ovarian cancer Prostate cancer Social History Smoking Status: Current some day smoker Tobacco Type: Cigarettes Age Started Using Tobacco: 13; Cigarettes Per Day: 1 pack per 3 days; Second Hand Exposure: No; Do You Dip or Chew Tobacco: No; Tobacco Cessation Education Requested by Patient: No Hx Alcohol Use: Yes Alcohol type: beer Alcohol Intake Frequency: 4 or More x per/Week Alcohol Intake Frequency Comment: 3 beers per day Hx Substance Use: No Preferred Language: Azeri Communication Ability: Effective Visual Impairment: No Limitations Hearing Ability: Normal Pourer Bull Ladle Required: No Beliefs That Will Affect Care: None marital status: Current Living Situation: Alone current occupational status: retired 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 Review of Systems Review of Systems: 03/05 point ROS unobtainable due to patient's altered mental status Physical Exam Physical Exam: Constitutional: Thin and frail appearing male in moderate distress. Eyes: Pupils are equal round and reactive to light. Conjunctivae are normal. Anicteric sclera. Ears nose, mouth and throat: Mallampati class 2. Normal posterior oropharynx. Uvula is midline. Neck: Trachea is midline. Visual inspection is normal. Respiratory: Prolonged phase of exhalation. Mild wheezing noted bilaterally. Cardiovascular: Regular rate and rhythm. No murmurs. No edema. Gastrointestinal: Normal bowel sounds, soft, nontender and nondistended. No hepatosplenomegaly noted. Musculoskeletal: No cyanosis. Patient is able to move all extremities. Strength is 5 out of 5 in the upper and lower extremities. Skin: No rashes, warm dry and intact. Neurologic: Patient is obtunded. Moves his upper extremities spontaneously. Psychiatric: Unable to assess as he is currently obtunded. Results & Data Results & Data ([facility]) Vital Signs (Past 12 Hours) Vital Signs Temp Pulse Pulse Pulse Resp BP BP 01/05/21 07:30 82 22 01/05/21 07:28 82 22 01/05/21 05:56 95 H 24 01/05/21 05:45 92 H 30 H 01/05/21 03:41 98.1 F 104 H 26 H 162/93 H 01/05/21 03:03 103 H 24 01/05/21 00:00 01/04/21 22:49 98.8 F 109 H 20 171/99 H 01/04/21 22:47 108 H 01/04/21 22:14 110 H 24 01/04/21 21:04 119 H 01/04/21 20:51 98.4 F 118 H 25 H 185/94 H 01/04/21 20:47 98.4 F 120 H 20 185/94 H Pulse Ox Pulse Ox 01/05/21 07:30 95 01/05/21 07:28 95 01/05/21 05:56 96 01/05/21 05:45 96 01/05/21 03:41 97 01/05/21 03:03 92 08/16/21 00:00 100 01/04/21 22:49 90 01/04/21 22:47 01/04/21 22:14 93 01/04/21 21:04 01/04/21 20:51 96 96 01/04/21 20:47 95 Vital signs, labs and imaging personally reviewed. Chest CTA completed 01/03/2021 with evidence of 9 x 7 mm left apical nodule which is new dating back to 2007. Severe bilateral emphysema. Coding Level of Care Code Critical Care 1st 30-74 mins Diagnoses COPD exacerbation J44.1 Acute and chronic respiratory failure with hypercapnia J96.22 Altered mental state R41.82 Hyponatremia E87.1 Time Spent (min) 35
[2021-01-05 08:45] LABS: Basophils # (auto) 0.01 K/uL (0-0.2); Basophils % (auto) 0.1 %; Hematocrit (blood only) 42.1 % (42-52); Hemoglobin 13.7 g/dL (14.0-18.0); Immature Granulocytes # (auto) 0.05 K/uL (0.00-0.02); Immature Granulocytes % (auto) 0.5 %; Lymphocytes # (auto) 0.62 K/uL (1.2-3.4); Lymphocytes % (auto) 5.9 %; Mean Corpuscular Hemoglobin 34.2 pg (25-34); Mean Corpuscular Hgb Conc 32.5 g/dL (32-36); Mean Platelet Volume 9.2 fL (7.4-10.4); Monocytes % (auto) 9.5 %; Neutrophils # (auto) 8.83 K/uL (1.4-6.5); Platelet Count 136 K/uL (130-400); RDW Coefficient of Variation 12.5 % (11.5-14.5); RDW Standard Deviation 48.3 fL (36.4-46.3); Red Blood Count 4.01 M/uL (4.7-6.1); White Blood Count 10.51 K/uL (4.8-10.8)
[2021-01-05] MEDS ORDERED: HALOPERIDOL LACTATE 5 MG/ML 1 ML VIAL ONE (09:02)
--- NOTE | 2021-01-05 09:33 | CT Scan Report ---
CT head/brain wo con CLINICAL HISTORY: ams COMPARISON STUDY: January 21, 2008 TECHNIQUE: Axial CT of the brain is performed from the vertex to the skull base. IV contrast was not administered for this examination. A dose lowering technique was utilized adhering to the principles of ALARA. CT DOSE: 1647.88 mGycm FINDINGS: Slightly limited study due to motion and beam hardening artifact despite attempts. No intra or extra-axial mass lesions are visualized. There is no CT evidence of acute cortical infarc tion. There is no evidence of midline shift. There is no acute hemorrhage. Prominence of the occipital horns of bilateral lateral ventricles are unchanged since prior and might represent developmental variant. No midline shift is seen. Layla cisterna magna is again seen. No acute depressed calvarial fractures are visualized. There are patchy white matter hypodensities likely on a small vessel basis. There is no evidence of acute sinusitis IMPRESSION: 1. No acute intracranial hemorrhage, no midline shift or space-occupying lesions. Limited exam due t o motion and beam hardening artifact. 2. Stable prominence of occipital horns of lateral ventricles bilaterally and layla cisterna magna ar e unchanged since prior. ACT 112: Negative or not required by law. The above report was generated using voice recognition software. It may contain grammatical, syntax o r spelling errors. Electronically signed by: Chika Patten DO 01/05/2021 9:31 AM
--- NOTE | 2021-01-05 09:36 | XRay Report ---
XR chest 1V portable CLINICAL HISTORY: ams, hypoxia COMPARISON STUDY: January 04, 2021 FINDINGS: No pneumothorax. No pleural effusion. Interval development of atelectasis at the left base. Asymmetrical prominence of the pulmonary interstitium within left lung appears slightly more conspic uous than on prior study and might represent developing infiltrative lesion/pneumonia. Redemonstration of hyperinflation and possible emphysema. Cardiomediastinal silhouette is within normal limits in size. No significant pulmonary vascular congestion.. Aorta is calcified. Osseous structures: Degenerative changes of the spine. IMPRESSION: 1. Interval prominence of the interstitial marking within left lung and new atelectasis/infiltrate a t the left base. 2. COPD pattern, stable. 3. The rest of findings as above. ACT 112: Negative or not required by law. The above report was generated using voice recognition software. It may contain grammatical, syntax o r spelling errors. Electronically signed by: Chika Patten DO 01/05/2021 9:35 AM
[2021-01-05 09:37] LABS: BUN Creatinine Ratio 17.5 (10-20); Calcium 8.1 mg/dl (8.5-10.1); Est GFR (African American) 123.2 ml/min; Est GFR (Non-African American) 106.3 ml/min; Potassium 4.3 mmol/L (3.5-5.1)
[2021-01-05] MEDS: cefTRIAXone SODIUM 1,000 MG in DEXTROSE 5% 50 ML IV SCH (09:41)
[2021-01-05] MEDS: ENOXAPARIN INJ 40 MG/0.4 ML SYR SQ SCH (09:44)
[2021-01-05] MEDS: AZITHROMYCIN 250 MG in DEXTROSE 5% 250 ML IV SCH (09:44)
[2021-01-05] MEDS ORDERED: HALOPERIDOL LACTATE 5 MG/ML 1 ML VIAL IM ONE (09:45)
[2021-01-05 10:37] LABS: Troponin I 0.8 ng/ml (0-0.045)
[2021-01-05] MEDS: THIAMINE HCL 200 MG in SODIUM CHLORIDE 0.9% 50 ML IV SCH (10:47)
[2021-01-05 10:49] LABS: iSTAT Allen Test Pass; iSTAT Art Bld Gas pCO2 Correct 75 mmHg (35-46); iSTAT Art Bld Gas pH Corrected 7.192 (7.35-7.45); iSTAT Arterial Blood Gas HCO3 29 meg/L (19-24); iSTAT Arterial Blood Gas pCO2 75 mmHg (35-46); iSTAT Arterial Blood Gas pH 7.19 (7.35-7.45); iSTAT Arterial Blood Gas pO2 72 mmHg (80-95); iSTAT Arterial Blood Gas pO2 C 72; iSTAT Carbon Dioxide 31 mmol/L (24-31); iSTAT FiO2 30 %; iSTAT Hematocrit 42 % (42-52); iSTAT Hemoglobin 14.3 g/dl (14.0-18.0); iSTAT Site R Radial; iSTAT Sodium 127 mmol/L (135-144)
[2021-01-05 11:03] LABS: Appearance Urine Clear (Clear); Bacteria Urine Automated Negative (Negative); Bilirubin Urine Negative (Negative); Blood Urine 2+ (Negative); Color Urine Yellow; Epithelial Cell Urine Auto >30 /lpf (0-5); Glucose Urine UA 1+ (Negative); Ketones Urine 1+ (Negative); Leukocyte Esterase Urine Negative (Negative); Nitrite Urine Negative (Negative); Protein Urine 1+ (Negative); Specific Gravity Urine 1.017 (1.000-1.030); Urobilinogen Urine Negative (Negative)
--- NOTE | 2021-01-05 12:10 | Palliative Care Consultation ---
Date of Consultation January 05, 2021 Assessment & Plan (1) Palliative care encounter: Mr. Xavi Condon is a 65 year old male who presented to the [facility] with shortness of breath related to a COPD exacerbation. He is oxygen dependent at home. Additional PMH includes: CAD s/p cardiac arrest s/p RCA stent (2008), HTN, HLD, a 9mm x 7 mm lung nodule, & alcoholism. He was admitted to the med/surg floor and was transferred to ICU for hypercapnia and placed on BiPAP as he was obtunded. His ABG is showing some CO2 improvement. Palliative Medicine was consulted to discuss overall goals of care. I met with the patient in room 111. He was on BiPAP and fully obtunded. His ABG is showing some improvements. pH7.19, CO@ improved from 109--> 79. FIO2 30%, SpO2 97%. I talked with his daughter, Chasity, who stated that she has two brothers and a sister. The youngest is near [place]. They just lost their mother last week from lung cancer and COPD as well. She did say that she is speaking on behalf of her siblings that she does not think he would want to stop treatment or not be aggressive in his care at this time, both from a cardiac standpoint and respiratory standpoint. She is ok with him receiving vasoactive support if necessary. She stated that she and her siblings have been trying to get him to stop smoking for years, but feels that everything that has happened over the past week really caused him to have increased stressors and exacerbation of illness. At this time, remain a full code. Family plans to visit this afternoon. Palliative will follow. (2) Altered mental state: (3) Hypercapnia: (4) Weakness: History of Present Illness Reason for Consultation: Goals of Care Requesting Physician: Dr. Leigh Attending Physician: Juan R Lopez DO History of Present Illness Mr. Xavi Condon is a 65 year old male who presented to the [facility] with shortness of breath related to a COPD exacerbation. He is oxygen dependent at home. Additional PMH includes: CAD s/p cardiac arrest s/p RCA stent (2008), HTN, HLD, a 9mm x 7 mm lung nodule, & alcoholism. He was admitted to the med/surg floor and was transferred to ICU for hypercapnia and placed on BiPAP as he was obtunded. His ABG is showing some CO2 improvement. Palliative Medicine was consulted to discuss overall goals of care. Please see A/P for further details. Thanks for involving Palliative Medicine with this patient. Allergies Allergy/AdvReac Type Severity Reaction Status Date / Time atorvastatin Allergy muscle Verified 01/03/21 17:06 weakness, myalgia escitalopram [From Lexapro] Allergy Fatigued Verified 01/03/21 17:06 Home Medications Medication Instructions Recorded Confirmed Type vitamin B complex 1 tab PO DAILY 01/26/19 01/03/21 History sildenafil 50 mg tablet 50 mg PO DAILY PRN #6 tab 02/09/19 01/03/21 Rx folic acid 1 mg tablet 1 mg PO DAILY #90 tab 01/30/20 01/03/21 Rx lisinopril 20 mg tablet 20 mg PO DAILY #90 tab 03/11/20 01/03/21 Rx metoprolol tartrate 100 mg tablet 100 mg PO BID #180 tab 04/25/20 01/03/21 Rx tiotropium bromide 18 mcg capsule 1 cap INH DAILY #30 puffs 04/25/20 01/03/21 Rx with inhalation device (Spiriva with HandiHaler) ezetimibe 10 mg tablet 10 mg PO DAILY #90 tab 06/25/20 01/03/21 Rx furosemide 20 mg tablet 20 mg PO DAILY #90 tab 06/25/20 01/03/21 Rx rosuvastatin 20 mg tablet 20 mg PO DAILY #90 tab 06/25/20 01/03/21 Rx albuterol sulfate 90 mcg/actuation 2 puff INHALATION QID PRN #18 g 08/01/20 01/03/21 Rx aerosol inhaler (ProAir HFA) potassium chloride 10 mEq 10 meq PO DAILY #90 tab 09/15/20 01/03/21 Rx tablet,extended release aspirin 81 mg tablet,delayed 81 mg PO DAILY 01/03/21 01/03/21 History release (Aspirin Low Dose) Patient History Medical History (Updated 01/05/21 @ 12:09 by TESS Malin) Actinic keratosis Acute and chronic respiratory failure with hypercapnia Altered mental state Brain anoxic injury Controlled substance agreement broken History of cardiac arrest Hypercapnia Hypercholesterolemia Hypertension Hyponatremia Impaired fasting glucose Inflamed seborrheic keratosis Insomnia Memory loss Palliative care encounter Venous insufficiency Weakness Surgical History History of coronary artery stent placement Status post angioplasty Family History Brother Alcohol abuse Crohn's disease Drug abuse Depression Mother Colorectal cancer COPD (chronic obstructive pulmonary disease) Dementia Breast cancer Father Colorectal cancer Cardiac disorder Myocardial infarction Family/Other Colorectal cancer siblings Sister Thyroid disease Denies family history of Ovarian cancer Prostate cancer Social History Smoking Status: Current some day smoker Tobacco Type: Cigarettes Age Started Using Tobacco: 13; Cigarettes Per Day: 1 pack per 3 days; Second Hand Exposure: No; Do You Dip or Chew Tobacco: No; Tobacco Cessation Education Requested by Patient: No Hx Alcohol Use: Yes Alcohol type: beer Alcohol Intake Frequency: 4 or More x per/Week Alcohol Intake Frequency Comment: 3 beers per day Hx Substance Use: No Preferred Language: Vietnamese Communication Ability: Effective Visual Impairment: No Limitations Hearing Ability: Normal Collating Machine Operator Required: No Beliefs That Will Affect Care: None marital status: Current Living Situation: Alone current occupational status: retired 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 Review of Systems Review of Systems: [employer] Assessment Scale: Pain: 0/3 by assessment observation shortness of breath: 1/3 by assessment observation Anxiety: 0/3 Tiredness: 3/3 Palliative Performance Scale: 30% Physical Exam Constitutional: + ill appearing, + frail appearing and comfortable ENMT: Mouth: + dry oral mucous membranes Respiratory: + uses accessory muscles Auscultation: + diminished lung sounds Gastrointestinal (Abdomen): Inspection/Auscultation: abdomen normal to inspection Percussion/Palpation: abdomen soft Skin: normal turgor and + dry skin Neurologic: + obtunded Results & Data ([facility]) Vital Signs (Past 12 Hours) Vital Signs Temp Pulse Pulse Pulse Resp BP BP 01/05/21 11:01 83 15 74/45 L 01/05/21 10:59 84 17 68/51 L 01/05/21 10:57 82 21 01/05/21 10:29 90 27 H 123/67 01/05/21 10:00 88 19 108/67 01/05/21 09:30 93 H 22 01/05/21 08:58 85 29 H 99/63 L 01/05/21 08:28 86 19 107/70 01/05/21 07:45 84 26 H 124/72 01/05/21 07:43 90 24 112/67 01/05/21 07:35 79 20 89/53 L 01/05/21 07:30 82 22 01/05/21 07:28 82 22 01/05/21 07:20 83 21 79/56 L 01/05/21 07:09 85 21 01/05/21 07:04 88 21 01/05/21 05:56 95 H 24 01/05/21 05:45 92 H 30 H 01/05/21 03:41 36.7 C 104 H 26 H 162/93 H 01/05/21 03:03 103 H 24 Pulse Ox 01/05/21 11:01 99 01/05/21 10:59 100 01/05/21 10:57 98 01/05/21 10:29 93 01/05/21 10:00 95 01/05/21 09:30 90 01/05/21 08:58 95 01/05/21 08:28 93 01/05/21 07:45 01/05/21 07:43 98 01/05/21 07:35 97 01/05/21 07:30 95 01/05/21 07:28 95 01/05/21 07:20 97 01/05/21 07:09 100 01/05/21 07:04 100 01/05/21 05:56 96 01/05/21 05:45 96 01/05/21 03:41 97 01/05/21 03:03 92 PG Care Time/CCT Total # of Minutes Spent Total Time Spent with Patient: Total time spent is greater than 50% in coordination of care (as documented) at patient's floor/unit and/or counseling patient: 70 minutes with > 50% of that time spent assessing the patient, discussing goals of care, and collaborating with the IDT Coding Level of Care Code 57396 Initial Inpt Care Lvl 3 Diagnoses Palliative care encounter Z51.5 Altered mental state R41.82 Hypercapnia R06.89 Weakness R53.1 Time Spent (min) 70
[2021-01-05 13:47] LABS: iSTAT Allen Test Pass; iSTAT Art Bld Gas pCO2 Correct 58 mmHg (35-46); iSTAT Arterial Blood Gas HCO3 28 meg/L (19-24); iSTAT Arterial Blood Gas pCO2 59 mmHg (35-46); iSTAT Arterial Blood Gas pH 7.29 (7.35-7.45); iSTAT Arterial Blood Gas pO2 78 mmHg (80-95); iSTAT Arterial Blood Gas pO2 C 77; iSTAT Carbon Dioxide 30 mmol/L (24-31); iSTAT FiO2 30 %; iSTAT Hematocrit 40 % (42-52); iSTAT Hemoglobin 13.6 g/dl (14.0-18.0); iSTAT Potassium 3.8 mmol/L (3.3-5.0); iSTAT Site R Radial; iSTAT Sodium 128 mmol/L (135-144)
[2021-01-05] MEDS: methylPREDNISolone 80 MG in SYRINGE 0 ML IV SCH ×2 (14:08→21:52)
--- NOTE | 2021-01-05 17:15 | Nephrology Progress Note ---
Date of Service January 05, 2021 Assessment & Plan (1) Hyponatremia: Plan: Chronic, severe. Improvement with intravascular volume expansion. No PO free water intake. IV saline stopped. Metabolic profile otherwise normal. Repeat sodium pending. (2) COPD exacerbation: Plan: Remains on methylpred. BIPAP for hypercarbia with improvement. (3) Hypertension: Plan: BP low. Antihypertensives adjusted. (4) Lung nodule: Plan: Outpatient follow up. Admission and Anticipated Discharge Date Admission Date: January 03, 2021 Subjective Xavi was seen and evaluated in the ICU this AM. I reviewed his history with the bedside nurse. I discussed the plan of care with Dr. Leigh. Xavi was not able to provided any history. Palliative consultation reviewed. Review of Systems Review of Systems: Unobtainable due to reduced consciousness Physical Exam Constitutional: + thin and + frail appearing Eyes: + anicteric sclerae ENMT: Mouth: no oral mucosal abnormality and oral mucous membranes not dry Neck: normal visual inspection and trachea midline Respiratory: normal respiratory effort Auscultation: lungs clear to auscultation bilaterally Cardiovascular: Rate/Rhythm: regular rate Heart Sounds: normal S1 and normal S2 Extremities: no edema Musculoskeletal: Extremities: no cyanosis and no clubbing Skin: + turgor decreased; no jaundice Neurologic: Motor/Sensory: no tremor and no asterixis Psychiatric: Orientation: + not alert and + not oriented x 3 Results & Data ([facility]) Vital Signs (Past 12 Hours) Vital Signs Temp Pulse Pulse Pulse Resp BP Pulse Ox 01/05/21 15:03 79 81 19 97 01/05/21 14:36 79 19 85/61 L 97 01/05/21 13:36 108 H 26 H 165/96 H 90 01/05/21 13:25 36.8 C 01/05/21 12:35 80 18 91/52 L 97 01/05/21 12:06 79 16 87/64 L 96 01/05/21 11:36 87 22 118/101 H 94 01/05/21 11:01 83 15 74/45 L 99 01/05/21 10:59 84 17 68/51 L 100 01/05/21 10:57 82 21 98 01/05/21 10:29 90 27 H 123/67 93 01/05/21 10:00 88 19 108/67 95 01/05/21 09:30 93 H 22 90 08/16/21 08:58 85 29 H 99/63 L 95 01/05/21 08:28 86 19 107/70 93 01/05/21 07:45 84 26 H 124/72 01/05/21 07:43 90 24 112/67 98 01/05/21 07:35 79 20 89/53 L 97 01/05/21 07:30 82 22 95 01/05/21 07:28 82 22 95 01/05/21 07:20 83 21 79/56 L 97 01/05/21 07:09 85 21 100 01/05/21 07:04 88 21 100 01/05/21 05:56 95 H 24 96 01/05/21 05:45 92 H 30 H 96 Laboratory Results Laboratory Results - last 24 hr 01/04/21 01/04/21 01/05/21 16:53 22:45 05:32 WBC RBC Hgb POC Hgb 16.0 Hct POC Hct 47 MCV MCH MCHC RDW Std Deviation RDW Coeff of [place] Plt Count MPV Immature Gran % (Auto) Neut % (Auto) Lymph % (Auto) [place] % (Auto) Eos % (Auto) Baso % (Auto) Neut # (Auto) Lymph # (Auto) [place] # (Auto) Eos # (Auto) Baso # (Auto) Immature Gran # (Auto) Sample Site R Radial POC pH 7.13 L* POC pCO2 109 H POC pO2 109 H POC HCO3 36 H POC Total CO2 39 H POC Base Excess 7.0 H ABG pH (Temp Correct) 7.131 L* ABG pCO2 (Temp Corrct 108 H POC ABG pO2 at Pt Temp 107 POC ABG O2 Sat 95.0 Enrique Test Pass O2 Delivery Device Cannula POC O2 Rate POC FiO2 IPAP POC Sodium 129 L Sodium 126 L 128 L POC Potassium 4.3 Potassium 3.9 3.7 Chloride 95 L 93 L Carbon Dioxide 27 28 Anion Gap 4.0 7.0 BUN 9 8 Creatinine 0.47 L 0.49 L Est Cr Clr Drug Dosing 109.4 104.9 Est GFR ( Amer) 133.3 131.1 Est GFR (Non-Af Amer) 115.0 113.1 BUN/Creatinine Ratio 19.1 17.1 Glucose 137 H 133 H Calcium 7.8 L 7.9 L Troponin I Procalcitonin Urine Color Urine Appearance Urine pH Ur Specific [place] Urine Protein Urine Glucose (UA) Urine Ketones Urine Blood Urine Nitrite Urine Bilirubin Urine Urobilinogen Ur Leukocyte Esterase Urine WBC (Auto) Urine RBC (Auto) U Hyaline Cast (Auto) U Epithel Cells (Auto) Urine Bacteria (Auto) Ur Renal Epithelial Cell Urine Osmolality Ur Random Sodium Nasal Screen MRSA (PCR) 01/05/21 01/05/21 01/05/21 07:11 07:28 09:00 WBC 10.51 RBC 4.01 L Hgb 13.7 L POC Hgb 14.6 Hct 42.1 POC Hct 43 MCV 105.0 H D MCH 34.2 H MCHC 32.5 RDW Std Deviation 48.3 H RDW Coeff of [place] 12.5 Plt Count 136 MPV 9.2 Immature Gran % (Auto) 0.5 Neut % (Auto) 84.0 Lymph % (Auto) 5.9 [place] % (Auto) 9.5 Eos % (Auto) 0.0 Baso % (Auto) 0.1 Neut # (Auto) 8.83 H Lymph # (Auto) 0.62 L [place] # (Auto) 1.00 H Eos # (Auto) 0.00 Baso # (Auto) 0.01 Immature Gran # (Auto) 0.05 H Sample Site R Radial POC pH 7.20 L POC pCO2 86 H POC pO2 206 H POC HCO3 34 H POC Total CO2 36 H POC Base Excess 6.0 H ABG pH (Temp Correct) 7.200 L ABG pCO2 (Temp Corrct 86 H POC ABG pO2 at Pt Temp 206 POC ABG O2 Sat 99.0 H Enrique Test Pass O2 Delivery Device BIPAP POC O2 Rate 18 POC FiO2 50 IPAP 18 POC Sodium 127 L Sodium 128 L POC Potassium 3.9 Potassium 4.3 D Chloride 97 L Carbon Dioxide 25 Anion Gap 6.0 BUN 10 Creatinine 0.57 L Est Cr Clr Drug Dosing 92.0 Est GFR ( Amer) 123.2 Est GFR (Non-Af Amer) 106.3 BUN/Creatinine Ratio 17.5 Glucose 109 H Calcium 8.1 L Troponin I 0.800 H* Procalcitonin Urine Color Urine Appearance Urine pH Ur Specific [place] Urine Protein Urine Glucose (UA) Urine Ketones Urine Blood Urine Nitrite Urine Bilirubin Urine Urobilinogen Ur Leukocyte Esterase Urine WBC (Auto) Urine RBC (Auto) U Hyaline Cast (Auto) U Epithel Cells (Auto) Urine Bacteria (Auto) Ur Renal Epithelial Cell Urine Osmolality Ur Random Sodium Nasal Screen MRSA (PCR) 01/05/21 01/05/21 01/05/21 09:00 09:09 10:36 WBC RBC Hgb POC Hgb 14.3 Hct POC Hct 42 MCV MCH MCHC RDW Std Deviation RDW Coeff of [place] Plt Count MPV Immature Gran % (Auto) Neut % (Auto) Lymph % (Auto) [place] % (Auto) Eos % (Auto) Baso % (Auto) Neut # (Auto) Lymph # (Auto) [place] # (Auto) Eos # (Auto) Baso # (Auto) Immature Gran # (Auto) Sample Site R Radial POC pH 7.19 L* POC pCO2 75 H POC pO2 72 L POC HCO3 29 H POC Total CO2 31 POC Base Excess 0.0 ABG pH (Temp Correct) 7.192 L* ABG pCO2 (Temp Corrct 75 H POC ABG pO2 at Pt Temp 72 POC ABG O2 Sat 89.0 L Enrique Test Pass O2 Delivery Device BIPAP POC O2 Rate POC FiO2 30 IPAP 18 POC Sodium 127 L Sodium POC Potassium 4.0 Potassium Chloride Carbon Dioxide Anion Gap BUN Creatinine Est Cr Clr Drug Dosing Est GFR ( Amer) Est GFR (Non-Af Amer) BUN/Creatinine Ratio Glucose Calcium Troponin I Procalcitonin < 0.05 Urine Color Urine Appearance Urine pH Ur Specific [place] Urine Protein Urine Glucose (UA) Urine Ketones Urine Blood Urine Nitrite Urine Bilirubin Urine Urobilinogen Ur Leukocyte Esterase Urine WBC (Auto) Urine RBC (Auto) U Hyaline Cast (Auto) U Epithel Cells (Auto) Urine Bacteria (Auto) Ur Renal Epithelial Cell Urine Osmolality Ur Random Sodium Nasal Screen MRSA (PCR) Negative 01/05/21 01/05/21 01/05/21 10:45 10:45 10:45 WBC RBC Hgb POC Hgb Hct POC Hct MCV MCH MCHC RDW Std Deviation RDW Coeff of [place] Plt Count MPV Immature Gran % (Auto) Neut % (Auto) Lymph % (Auto) [place] % (Auto) Eos % (Auto) Baso % (Auto) Neut # (Auto) Lymph # (Auto) [place] # (Auto) Eos # (Auto) Baso # (Auto) Immature Gran # (Auto) Sample Site POC pH POC pCO2 POC pO2 POC HCO3 POC Total CO2 POC Base Excess ABG pH (Temp Correct) ABG pCO2 (Temp Corrct POC ABG pO2 at Pt Temp POC ABG O2 Sat Enrique Test O2 Delivery Device POC O2 Rate POC FiO2 IPAP POC Sodium Sodium POC Potassium Potassium Chloride Carbon Dioxide Anion Gap BUN Creatinine Est Cr Clr Drug Dosing Est GFR ( Amer) Est GFR (Non-Af Amer) BUN/Creatinine Ratio Glucose Calcium Troponin I Procalcitonin Urine Color Yellow Urine Appearance Clear Urine pH 6.0 Ur Specific [place] 1.017 Urine Protein 1+ H Urine Glucose (UA) 1+ H Urine Ketones 1+ H Urine Blood 2+ H Urine Nitrite Negative Urine Bilirubin Negative Urine Urobilinogen Negative Ur Leukocyte Esterase Negative Urine WBC (Auto) 1-5 Urine RBC (Auto) 5-10 H U Hyaline Cast (Auto) 5-10 H U Epithel Cells (Auto) >30 H Urine Bacteria (Auto) Negative Ur Renal Epithelial Cell Not Reportable Urine Osmolality 548 Ur Random Sodium 62 Nasal Screen MRSA (PCR) 01/05/21 01/05/21 13:33 13:45 WBC RBC Hgb POC Hgb 13.6 L Hct POC Hct 40 L MCV MCH MCHC RDW Std Deviation RDW Coeff of [place] Plt Count MPV Immature Gran % (Auto) Neut % (Auto) Lymph % (Auto) [place] % (Auto) Eos % (Auto) Baso % (Auto) Neut # (Auto) Lymph # (Auto) [place] # (Auto) Eos # (Auto) Baso # (Auto) Immature Gran # (Auto) Sample Site R Radial POC pH 7.29 L POC pCO2 59 H POC pO2 78 L POC HCO3 28 H POC Total CO2 30 POC Base Excess 2.0 H ABG pH (Temp Correct) 7.290 L ABG pCO2 (Temp Corrct 58 H POC ABG pO2 at Pt Temp 77 POC ABG O2 Sat 93.0 Enrique Test Pass O2 Delivery Device BIPAP POC O2 Rate 18 POC FiO2 30 IPAP 18 POC Sodium 128 L Sodium POC Potassium 3.8 Potassium Chloride Carbon Dioxide Anion Gap BUN Creatinine Est Cr Clr Drug Dosing Est GFR ( Amer) Est GFR (Non-Af Amer) BUN/Creatinine Ratio Glucose Calcium Troponin I 0.726 H* Procalcitonin Urine Color Urine Appearance Urine pH Ur Specific [place] Urine Protein Urine Glucose (UA) Urine Ketones Urine Blood Urine Nitrite Urine Bilirubin Urine Urobilinogen Ur Leukocyte Esterase Urine WBC (Auto) Urine RBC (Auto) U Hyaline Cast (Auto) U Epithel Cells (Auto) Urine Bacteria (Auto) Ur Renal Epithelial Cell Urine Osmolality Ur Random Sodium Nasal Screen MRSA (PCR) PG Care Time/CCT Total # of Minutes Spent Total Time Spent with Patient: Total time spent is greater than 50% in coordination of care (as documented) at patient's floor/unit and/or counseling patient: Coding Level of Care Code 99330 Subseq Hosp Care Lvl 3 Diagnoses Hyponatremia E87.1 COPD exacerbation J44.1 Hypertension I10 Lung nodule R91.1
[2021-01-05 21:17] LABS: Albumin Level 3.2 gm/dl (3.4-5.0); BUN Creatinine Ratio 18.6 (10-20); Calcium 8.5 mg/dl (8.5-10.1); Creatinine Clr Calc Pharmacy 102.8 ml/min; Est GFR (African American) 128.9 ml/min; Est GFR (Non-African American) 111.2 ml/min; Potassium 4.3 mmol/L (3.5-5.1)
[2021-01-05 21:26] LABS: Phosphorus 2.1 mg/dl (2.5-4.9); Troponin I 0.712 ng/ml (0-0.045)
--- NOTE | 2021-01-05 22:02 | Hospitalist Progress Note ---
Date of Service January 05, 2021 Assessment & Plan (1) Hypoxia: Plan: due to COPD exacerbation currently providing NIPPV with BIPAP (2) COPD exacerbation: Plan: 65 yo M with hx sudden cardiac arrest s/p RCA stent, CAD, HTN, HLD, COPD, current smoker admitted for COPD exacerbation and hyponatremia. 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 Continue volume repletion and remeasure - Na coming up slowly (6) Smoking: Plan: May use patch if cravings, deferred at this time due to increased anxiety and tremulousness (7) Hypertension: Plan: - Continue SARKIS, MTP as noted in CAD (8) Hypercholesterolemia: Plan: - Continue rosuvastatin (9) CAD (coronary artery disease): Plan: - Continue lisinopril - Continue MTP 200mg BID - Continue Aspirin - Continue rosuvastatin (10) COPD (chronic obstructive pulmonary disease): Plan: - See COPD exacerbation (11) Elevated d-dimer: Plan: - likely due to viral infection causing COPD ex, - CTA Chest negative for PE, no sx or swelling indicative of DVT, no hx clotting (12) Lung nodule: Plan: Chest CTA revealed a 9X 7 mm left apical nodule suggestive of pleuralparenchymal scarring however, is new from 2007. A 6-month follow-up chest CT is recommended and referred to lung nodule program (13) Daily consumption of alcohol: Plan: - 3 to 4 beers daily, no history of withdrawal/DTs - Last drink evening 01/02 - Pt reports increased anxiety, denies tremors/hallucinations/sweats/chills/palpitations. - active withdrawal protocol (14) Anxiety: Plan: - patient has seen a therapist and psychiatry as outpatient who is interested in seeing again Psych consulted, appreciate recommendations Continue lorazepam every 4 hours as needed, note patient also on KYLE S Anticipate anxiety may be worse in the setting of steroid treatment Patient previously on Lexapro, but with severe fatigue. SSRI not appropriate at this time given hyponatremia Plan: remain in ICU Admission and Anticipated Discharge Date Admission Date: January 03, 2021 Subjective patient seen in afternoon on BIPAP, he was very lethargic appreciate ICU management appears ill, not in distress Review of Systems Review of Systems: Unobtainable due to cognitive status (lethargic) Physical Exam Constitutional: + thin, + altered mental status and + lethargic; no acute distress Neck: trachea midline, no thyromegaly Respiratory: + uses accessory muscles and + tachypneic (on BIPAP) Auscultation: + diminished lung sounds and + wheezes; no crackles, no rales and no rhonchi Cardiovascular: RRR, no murmur, no edema Gastrointestinal (Abdomen): normal bowel sounds, soft, nontender, no hepatosplenomegaly Musculoskeletal: Head/Neck/Chest: normocephalic, head atraumatic and neck supple Extremities: extremities normal to inspection and + abnormal strength; no cyanosis, no clubbing and no petechiae Skin: no rashes, warm and dry Neurologic: CN's II-XI intact bilaterally, moves all extremities and + obtunded; no focal motor deficits Results & Data Results & Data ([facility]) Vital Signs (Past 12 Hours) Vital Signs Temp Pulse Pulse Pulse Resp BP BP 01/05/21 19:37 118 H 22 01/05/21 19:36 118 H 22 01/05/21 19:05 37.1 C 105 H 23 137/80 01/05/21 17:35 96 H 17 90/54 L 01/05/21 16:35 92 H 16 84/54 L 01/05/21 15:35 87 16 92/53 L 01/05/21 15:03 79 81 19 01/05/21 14:36 79 19 85/61 L 01/05/21 13:36 108 H 26 H 165/96 H 01/05/21 13:25 36.8 C 01/05/21 12:35 80 18 91/52 L 01/05/21 12:06 79 16 87/64 L 01/05/21 11:36 87 22 118/101 H 01/05/21 11:01 83 15 74/45 L 01/05/21 10:59 84 17 68/51 L 01/05/21 10:57 82 21 01/05/21 10:29 90 27 H 123/67 Pulse Ox 01/05/21 19:37 96 01/05/21 19:36 94 01/05/21 19:05 96 01/05/21 17:35 97 01/05/21 16:35 97 01/05/21 15:35 98 01/05/21 15:03 97 01/05/21 14:36 97 01/05/21 13:36 90 01/05/21 13:25 01/05/21 12:35 97 01/05/21 12:06 96 01/05/21 11:36 94 01/05/21 11:01 99 01/05/21 10:59 100 01/05/21 10:57 98 01/05/21 10:29 93 Laboratory Results Laboratory Results - last 24 hr 01/04/21 01/05/21 01/05/21 22:45 05:32 07:11 WBC RBC Hgb POC Hgb 16.0 14.6 Hct POC Hct 47 43 MCV MCH MCHC RDW Std Deviation RDW Coeff of [place] Plt Count MPV Immature Gran % (Auto) Neut % (Auto) Lymph % (Auto) Spencer % (Auto) Eos % (Auto) Baso % (Auto) Neut # (Auto) Lymph # (Auto) Spencer # (Auto) Eos # (Auto) Baso # (Auto) Immature Gran # (Auto) Sample Site R Radial R Radial POC pH 7.13 L* 7.20 L POC pCO2 109 H 86 H POC pO2 109 H 206 H POC HCO3 36 H 34 H POC Total CO2 39 H 36 H POC Base Excess 7.0 H 6.0 H ABG pH (Temp Correct) 7.131 L* 7.200 L ABG pCO2 (Temp Corrct 108 H 86 H POC ABG pO2 at Pt Temp 107 206 POC ABG O2 Sat 95.0 99.0 H Enrique Test Pass Pass O2 Delivery Device Cannula BIPAP POC O2 Rate 18 POC FiO2 50 IPAP 18 POC Sodium 129 L 127 L Sodium 128 L POC Potassium 4.3 3.9 Potassium 3.7 Chloride 93 L Carbon Dioxide 28 Anion Gap 7.0 BUN 8 Creatinine 0.49 L Est Cr Clr Drug Dosing 104.9 Est GFR ( Amer) 131.1 Est GFR (Non-Af Amer) 113.1 BUN/Creatinine Ratio 17.1 Glucose 133 H Calcium 7.9 L Phosphorus Troponin I Albumin Procalcitonin Urine Color Urine Appearance Urine pH Ur Specific [place] Urine Protein Urine Glucose (UA) Urine Ketones Urine Blood Urine Nitrite Urine Bilirubin Urine Urobilinogen Ur Leukocyte Esterase Urine WBC (Auto) Urine RBC (Auto) U Hyaline Cast (Auto) U Epithel Cells (Auto) Urine Bacteria (Auto) Ur Renal Epithelial Cell Urine Osmolality Ur Random Sodium Nasal Screen MRSA (PCR) 01/05/21 01/05/21 01/05/21 07:28 09:00 09:00 WBC 10.51 RBC 4.01 L Hgb 13.7 L POC Hgb Hct 42.1 POC Hct MCV 105.0 H D MCH 34.2 H MCHC 32.5 RDW Std Deviation 48.3 H RDW Coeff of [place] 12.5 Plt Count 136 MPV 9.2 Immature Gran % (Auto) 0.5 Neut % (Auto) 84.0 Lymph % (Auto) 5.9 Spencer % (Auto) 9.5 Eos % (Auto) 0.0 Baso % (Auto) 0.1 Neut # (Auto) 8.83 H Lymph # (Auto) 0.62 L Spencer # (Auto) 1.00 H Eos # (Auto) 0.00 Baso # (Auto) 0.01 Immature Gran # (Auto) 0.05 H Sample Site POC pH POC pCO2 POC pO2 POC HCO3 POC Total CO2 POC Base Excess ABG pH (Temp Correct) ABG pCO2 (Temp Corrct POC ABG pO2 at Pt Temp POC ABG O2 Sat Enrique Test O2 Delivery Device POC O2 Rate POC FiO2 IPAP POC Sodium Sodium 128 L POC Potassium Potassium 4.3 D Chloride 97 L Carbon Dioxide 25 Anion Gap 6.0 BUN 10 Creatinine 0.57 L Est Cr Clr Drug Dosing 92.0 Est GFR ( Amer) 123.2 Est GFR (Non-Af Amer) 106.3 BUN/Creatinine Ratio 17.5 Glucose 109 H Calcium 8.1 L Phosphorus Troponin I 0.800 H* Albumin Procalcitonin < 0.05 Urine Color Urine Appearance Urine pH Ur Specific [place] Urine Protein Urine Glucose (UA) Urine Ketones Urine Blood Urine Nitrite Urine Bilirubin Urine Urobilinogen Ur Leukocyte Esterase Urine WBC (Auto) Urine RBC (Auto) U Hyaline Cast (Auto) U Epithel Cells (Auto) Urine Bacteria (Auto) Ur Renal Epithelial Cell Urine Osmolality Ur Random Sodium Nasal Screen MRSA (PCR) 01/05/21 01/05/21 01/05/21 09:09 10:36 10:45 WBC RBC Hgb POC Hgb 14.3 Hct POC Hct 42 MCV MCH MCHC RDW Std Deviation RDW Coeff of [place] Plt Count MPV Immature Gran % (Auto) Neut % (Auto) Lymph % (Auto) Spencer % (Auto) Eos % (Auto) Baso % (Auto) Neut # (Auto) Lymph # (Auto) Spencer # (Auto) Eos # (Auto) Baso # (Auto) Immature Gran # (Auto) Sample Site R Radial POC pH 7.19 L* POC pCO2 75 H POC pO2 72 L POC HCO3 29 H POC Total CO2 31 POC Base Excess 0.0 ABG pH (Temp Correct) 7.192 L* ABG pCO2 (Temp Corrct 75 H POC ABG pO2 at Pt Temp 72 POC ABG O2 Sat 89.0 L Enrique Test Pass O2 Delivery Device BIPAP POC O2 Rate POC FiO2 30 IPAP 18 POC Sodium 127 L Sodium POC Potassium 4.0 Potassium Chloride Carbon Dioxide Anion Gap BUN Creatinine Est Cr Clr Drug Dosing Est GFR ( Amer) Est GFR (Non-Af Amer) BUN/Creatinine Ratio Glucose Calcium Phosphorus Troponin I Albumin Procalcitonin Urine Color Yellow Urine Appearance Clear Urine pH 6.0 Ur Specific [place] 1.017 Urine Protein 1+ H Urine Glucose (UA) 1+ H Urine Ketones 1+ H Urine Blood 2+ H Urine Nitrite Negative Urine Bilirubin Negative Urine Urobilinogen Negative Ur Leukocyte Esterase Negative Urine WBC (Auto) 1-5 Urine RBC (Auto) 5-10 H U Hyaline Cast (Auto) 5-10 H U Epithel Cells (Auto) >30 H Urine Bacteria (Auto) Negative Ur Renal Epithelial Cell Not Reportable Urine Osmolality Ur Random Sodium Nasal Screen MRSA (PCR) Negative 01/05/21 01/05/21 01/05/21 10:45 10:45 13:33 WBC RBC Hgb POC Hgb 13.6 L Hct POC Hct 40 L MCV MCH MCHC RDW Std Deviation RDW Coeff of [place] Plt Count MPV Immature Gran % (Auto) Neut % (Auto) Lymph % (Auto) Spencer % (Auto) Eos % (Auto) Baso % (Auto) Neut # (Auto) Lymph # (Auto) Spencer # (Auto) Eos # (Auto) Baso # (Auto) Immature Gran # (Auto) Sample Site R Radial POC pH 7.29 L POC pCO2 59 H POC pO2 78 L POC HCO3 28 H POC Total CO2 30 POC Base Excess 2.0 H ABG pH (Temp Correct) 7.290 L ABG pCO2 (Temp Corrct 58 H POC ABG pO2 at Pt Temp 77 POC ABG O2 Sat 93.0 Enrique Test Pass O2 Delivery Device BIPAP POC O2 Rate 18 POC FiO2 30 IPAP 18 POC Sodium 128 L Sodium POC Potassium 3.8 Potassium Chloride Carbon Dioxide Anion Gap BUN Creatinine Est Cr Clr Drug Dosing Est GFR ( Amer) Est GFR (Non-Af Amer) BUN/Creatinine Ratio Glucose Calcium Phosphorus Troponin I Albumin Procalcitonin Urine Color Urine Appearance Urine pH Ur Specific [place] Urine Protein Urine Glucose (UA) Urine Ketones Urine Blood Urine Nitrite Urine Bilirubin Urine Urobilinogen Ur Leukocyte Esterase Urine WBC (Auto) Urine RBC (Auto) U Hyaline Cast (Auto) U Epithel Cells (Auto) Urine Bacteria (Auto) Ur Renal Epithelial Cell Urine Osmolality 548 Ur Random Sodium 62 Nasal Screen MRSA (PCR) 01/05/21 01/05/21 01/05/21 13:45 13:45 20:37 WBC RBC Hgb POC Hgb Hct POC Hct MCV MCH MCHC RDW Std Deviation RDW Coeff of [place] Plt Count MPV Immature Gran % (Auto) Neut % (Auto) Lymph % (Auto) Spencer % (Auto) Eos % (Auto) Baso % (Auto) Neut # (Auto) Lymph # (Auto) Spencer # (Auto) Eos # (Auto) Baso # (Auto) Immature Gran # (Auto) Sample Site POC pH POC pCO2 POC pO2 POC HCO3 POC Total CO2 POC Base Excess ABG pH (Temp Correct) ABG pCO2 (Temp Corrct POC ABG pO2 at Pt Temp POC ABG O2 Sat Enrique Test O2 Delivery Device POC O2 Rate POC FiO2 IPAP POC Sodium Sodium Cancelled 131 L POC Potassium Potassium Cancelled 4.3 Chloride Cancelled 95 L Carbon Dioxide Cancelled 27 Anion Gap Cancelled 8.0 BUN Cancelled 10 Creatinine Cancelled 0.51 L Est Cr Clr Drug Dosing Cancelled 102.8 Est GFR ( Amer) Cancelled 128.9 Est GFR (Non-Af Amer) Cancelled 111.2 BUN/Creatinine Ratio Cancelled 18.6 Glucose Cancelled 130 H Calcium Cancelled 8.5 Phosphorus Cancelled 2.1 L Troponin I 0.726 H* 0.712 H* Albumin Cancelled 3.2 L Procalcitonin Urine Color Urine Appearance Urine pH Ur Specific [place] Urine Protein Urine Glucose (UA) Urine Ketones Urine Blood Urine Nitrite Urine Bilirubin Urine Urobilinogen Ur Leukocyte Esterase Urine WBC (Auto) Urine RBC (Auto) U Hyaline Cast (Auto) U Epithel Cells (Auto) Urine Bacteria (Auto) Ur Renal Epithelial Cell Urine Osmolality Ur Random Sodium Nasal Screen MRSA (PCR) Medications Administered Current Inpatient Medications Acetaminophen (Acetaminophen 325 Mg Tab) 650 mg PO Q4H PRN PRN Reason: pain/fever Stop: 02/02/21 22:07 Last Admin: 01/04/21 11:28 Dose: 650 mg Documented by: Al Hydrox/Mg Hydrox/Simethicone (Aluminum/Magnesium Susp 30 Ml Udc) 30 ml PO Q6H PRN PRN Reason: Dyspepsia Stop: 02/02/21 22:07 Albuterol (Albut/Ipratrop 3mg/0.5mg Neb 3 Ml Vial) 3 ml NEB Q4R STACEY Stop: 02/02/21 22:59 Last Admin: 01/05/21 19:32 Dose: 3 ml Documented by: Albuterol (Albut/Ipratrop 3mg/0.5mg Neb 3 Ml Vial) 3 ml NEB Q2H PRN PRN Reason: sob Stop: 02/02/21 22:07 Last Admin: 01/05/21 05:56 Dose: 3 ml Documented by: Aspirin (Aspirin 81 Mg Ectab) 81 mg PO DAILY [facility] Stop: 02/03/21 08:59 Last Admin: 01/05/21 08:26 Dose: Not Given Documented by: Calcium Carbonate (Calcium Carbonate 500 Mg Chewable Tab) 500 mg PO Q4H PRN PRN Reason: Indigestion Stop: 02/03/21 08:14 Last Admin: 01/04/21 08:27 Dose: 500 mg Documented by: Ezetimibe (Ezetimibe 10 Mg Tablet) 10 mg PO DAILY [facility] Stop: 02/03/21 08:59 Last Admin: 01/05/21 08:26 Dose: Not Given Documented by: Enoxaparin Sodium (Enoxaparin Inj 40 Mg/0.4 Ml Syr) 40 mg SQ QAM [facility] Stop: 02/04/21 08:59 Last Admin: 01/05/21 09:44 Dose: 40 mg Documented by: Folic Acid (Folic Acid 1 Mg Tab) 1 mg PO DAILY [facility] Stop: 02/03/21 08:59 Last Admin: 01/05/21 08:26 Dose: Not Given Documented by: Lorazepam (Ativan) 1 mg in 2 mls @ 2 mls/min IV UD PRN; Protocol PRN Reason: EtOH Withdrawl AWSS Score 6,7 Stop: 02/03/21 20:50 Lorazepam (Ativan) 2 mg in 4 mls @ 4 mls/min IV UD PRN; Protocol PRN Reason: EtOH Withdrawl AWSS Score 8,9 Stop: 02/03/21 20:50 Lorazepam (Ativan) 3 mg in 6 mls @ 4 mls/min IV ONCE PRN; Protocol PRN Reason: EtOH Withdrawl AWSS Score >=10 Stop: 02/03/21 20:50 Thiamine HCl 200 mg/ Sodium (Chloride) 52 mls @ 208 mls/hr IV QAM [facility] Stop: 02/04/21 08:59 Last Infusion: 01/05/21 11:30 Dose: Infused Documented by: Methylprednisolone 80 mg/ (Syringe) 1.28 mls @ 1.5 mls/min IV Q8 [facility] Stop: 02/04/21 13:59 Last Admin: 01/05/21 21:52 Dose: 1.5 mls/min Documented by: Azithromycin 250 mg/ Dextrose 252.5 mls @ 125 mls/hr IV Q24H [facility] Stop: 01/10/21 08:59 Last Infusion: 01/05/21 12:06 Dose: Infused Documented by: Ceftriaxone Sodium 1,000 mg/ (Dextrose) 50 mls @ 100 mls/hr IV Q24H [facility]; Protocol Stop: 01/12/21 08:59 Last Infusion: 01/05/21 10:59 Dose: Infused Documented by: Lisinopril (Lisinopril 20 Mg Tab) 20 mg PO DAILY [facility] Stop: 02/03/21 08:59 Last Admin: 01/04/21 08:29 Dose: 20 mg Documented by: Metoprolol Tartrate (Metoprolol Tartrate 100 Mg Tab) 100 mg PO BID [facility] Stop: 02/03/21 08:59 Last Admin: 01/04/21 21:04 Dose: 100 mg Documented by: Miscellaneous (Remove Nicoderm Patch) 1 ea N/A DAILY@0859 PRN PRN Reason: IF PATCH APPLIED Stop: 02/03/21 08:58 Nicotine (Nicotine 7 Mg/24 Hr Tdsy) 7 mg TD QAM PRN PRN Reason: agitation Stop: 02/02/21 22:07 Last Admin: 01/04/21 10:38 Dose: 7 mg Documented by: Ondansetron HCl (Ondansetron Inj 2 Mg/Ml 2 Ml Vial) 4 mg IV Q6H PRN PRN Reason: Nausea Stop: 02/02/21 22:07 Polyethylene Glycol (Polyethylene (Miralax) 17 Gm Pack) 17 gm PO DAILY PRN PRN Reason: Constipation Stop: 02/02/21 22:07 Rosuvastatin Calcium (Rosuvastatin Calcium 20 Mg Tab) 20 mg PO DAILY [facility] Stop: 02/03/21 08:59 Last Admin: 01/05/21 08:26 Dose: Not Given Documented by: Thiamine HCl (Thiamine Hcl 100 Mg Tab) 100 mg PO QAM [facility] Stop: 02/03/21 08:59 Last Admin: 01/05/21 08:26 Dose: Not Given Documented by: Umeclidinium [place] (Umeclidinium [place] 62.5mcg/Blister 7 Puffs/Inhaler) 1 puffs INH DAILY [facility] Stop: 02/03/21 08:59 Last Admin: 01/05/21 08:26 Dose: Not Given Documented by: PG Care Time/CCT Total # of Minutes Spent Total Time Spent with Patient: Total time spent is greater than 50% in coordination of care (as documented) at patient's floor/unit and/or counseling patient: Coding Level of Care Code 12256 Subseq Hosp Care Lvl 3 Diagnoses COPD exacerbation J44.1 Hyponatremia E87.1 Smoking F17.200 Hypertension I10 Hypercholesterolemia E78.00 CAD (coronary artery disease) I25.10 COPD (chronic obstructive pulmonary disease) J44.9 COPD type: unspecified COPD Elevated d-dimer R79.89 Lung nodule R91.1 Daily consumption of alcohol Z78.9 Anxiety F41.9 Hypercapnia R06.89 Acute and chronic respiratory failure with hypercapnia J96.22 Hypoxia R09.02 (1) COPD (chronic obstructive pulmonary disease) COPD type: unspecified COPD Qualified Code(s): J44.9 - Chronic obstructive pulmonary disease, unspecified
[2021-01-06] MEDS: ALBUT/IPRATROP 3MG/0.5MG NEB 3 ML VIAL NEB SCH ×6 (03:17→22:53)
[2021-01-06 04:17] LABS: iSTAT Allen Test Pass; iSTAT Art Bld Gas pCO2 Correct 58 mmHg (35-46); iSTAT Art Bld Gas pH Corrected 7.322 (7.35-7.45); iSTAT Arterial Blood Gas HCO3 30 meg/L (19-24); iSTAT Arterial Blood Gas pCO2 58 mmHg (35-46); iSTAT Arterial Blood Gas pH 7.32 (7.35-7.45); iSTAT Arterial Blood Gas pO2 195 mmHg (80-95); iSTAT Arterial Blood Gas pO2 C 195; iSTAT Carbon Dioxide 32 mmol/L (24-31); iSTAT Hematocrit 37 % (42-52); iSTAT Hemoglobin 12.6 g/dl (14.0-18.0); iSTAT Potassium 3.8 mmol/L (3.3-5.0); iSTAT Site R Radial; iSTAT Sodium 131 mmol/L (135-144)
[2021-01-06 04:51] LABS: Basophils # (auto) 0.01 K/uL (0-0.2); Basophils % (auto) 0.2 %; Hematocrit (blood only) 37.9 % (42-52); Hemoglobin 12.8 g/dL (14.0-18.0); Immature Granulocytes # (auto) 0.01 K/uL (0.00-0.02); Immature Granulocytes % (auto) 0.2 %; Lymphocytes # (auto) 0.55 K/uL (1.2-3.4); Mean Corpuscular Hemoglobin 35.5 pg (25-34); Mean Corpuscular Hgb Conc 33.8 g/dL (32-36); Mean Platelet Volume 9.2 fL (7.4-10.4); Monocytes # (auto) 0.23 K/uL (0.11-0.59); Monocytes % (auto) 4.2 %; Neutrophils # (auto) 4.72 K/uL (1.4-6.5); Neutrophils % (auto) 85.4 %; Platelet Count 114 K/uL (130-400); RDW Coefficient of Variation 12.3 % (11.5-14.5); Red Blood Count 3.61 M/uL (4.7-6.1); White Blood Count 5.52 K/uL (4.8-10.8)
[2021-01-06 05:11] LABS: BUN Creatinine Ratio 19.2 (10-20); Calcium 8.3 mg/dl (8.5-10.1); Creatinine Clr Calc Pharmacy 95.8 ml/min; Est GFR (African American) 126.9 ml/min; Est GFR (Non-African American) 109.5 ml/min; Magnesium 2.4 mg/dl (1.8-2.4); Potassium 3.8 mmol/L (3.5-5.1)
[2021-01-06 05:13] LABS: Phosphorus 1.8 mg/dl (2.5-4.9)
[2021-01-06] MEDS: methylPREDNISolone 80 MG in SYRINGE 0 ML IV SCH (05:29)
[2021-01-06] MEDS ORDERED: POTASSIUM PHOS 3 MMOL/1 ML INFUSION IV STA ×2 (05:37→22:46)
[2021-01-06] MEDS ORDERED: POTASSIUM PHOSPHATE 15 MMOL in SODIUM CHLORIDE 0.9% 250 ML IV ONE (06:00)
[2021-01-06] MEDS: THIAMINE HCL 200 MG in SODIUM CHLORIDE 0.9% 50 ML IV SCH (09:03)
[2021-01-06] MEDS: THIAMINE HCL 100 MG TAB PO SCH (09:04)
[2021-01-06] MEDS: ASPIRIN 81 MG ECTAB PO SCH (09:04)
[2021-01-06] MEDS: FOLIC ACID 1 MG TAB PO SCH (09:04)
[2021-01-06] MEDS: ROSUVASTATIN CALCIUM 20 MG TAB PO SCH (09:04)
[2021-01-06] MEDS: METOPROLOL TARTRATE 100 MG TAB PO SCH ×2 (09:04→19:31)
[2021-01-06] MEDS: UMECLIDINIUM BROMIDE 62.5MCG/BLISTER 7 PUFFS/INHALER INH SCH (09:04)
[2021-01-06] MEDS: EZETIMIBE 10 MG TABLET PO SCH (09:04)
[2021-01-06] MEDS: AZITHROMYCIN 250 MG in DEXTROSE 5% 250 ML IV SCH (09:05)
[2021-01-06] MEDS: cefTRIAXone SODIUM 1,000 MG in DEXTROSE 5% 50 ML IV SCH (09:05)
[2021-01-06] MEDS: ENOXAPARIN INJ 40 MG/0.4 ML SYR SQ SCH (09:05)
--- NOTE | 2021-01-06 09:08 | Nephrology Progress Note ---
Date of Service January 06, 2021 Assessment & Plan (1) Hyponatremia: Plan: Chronic, severe. Improvement with intravascular volume expansion. Remains NPO pending bedside evaluation this AM. Metabolic profile + Mg + PO4 tomorrow AM. Restart IVF if unable to take PO today. IV K phos provided this AM for hypophosphatemia. Additional PO4 replacement to be provided later today. (2) COPD exacerbation: Plan: Remains on methylpred. BIPAP for hypercarbia with improvement. (3) Hypertension: Plan: BP low. Antihypertensives adjusted. (4) Lung nodule: Plan: Outpatient follow up. Admission and Anticipated Discharge Date Admission Date: January 03, 2021 Subjective No acute events overnight. Mental status improved. Off BIPAP this AM. Remains NPO currently. PO medications pending. Review of Systems Constitutional: no problem reported Eyes: no problem reported Ear, Nose, Mouth, Throat: no problem reported Respiratory: no problem reported Cardiovascular: no problem reported Gastrointestinal: no problem reported Musculoskeletal: no problem reported Integumentary: no problem reported Neurologic: no problem reported Psychiatric: no problem reported Endocrine: no problem reported Hematologic / Lymphatic: no problem reported Physical Exam Constitutional: + thin and + frail appearing Eyes: + anicteric sclerae ENMT: Mouth: no oral mucosal abnormality and oral mucous membranes not dry Neck: normal visual inspection and trachea midline Respiratory: normal respiratory effort Auscultation: lungs clear to auscultation bilaterally Cardiovascular: Rate/Rhythm: regular rate Heart Sounds: normal S1 and norm al S2 Extremities: no edema Musculoskeletal: Extremities: no cyanosis and no clubbing Skin: + turgor decreased; no jaundice Neurologic: Motor/Sensory: no tremor and no asterixis Psychiatric: Orientation: alert and cooperative Results & Data ([facility]) Vital Signs (Past 12 Hours) Vital Signs Temp Pulse Pulse Resp BP Pulse Ox 01/06/21 07:10 102 H 20 100 01/06/21 05:26 96 H 14 129/73 100 01/06/21 05:00 104 H 18 133/88 99 01/06/21 04:50 107 H 20 96 01/06/21 04:40 109 H 21 97 01/06/21 04:30 108 H 21 98 01/06/21 04:29 109 H 23 98 01/06/21 04:00 36.9 C 01/06/21 03:26 99 H 17 103/64 100 01/06/21 03:19 103 H 22 96 01/06/21 02:26 128 H 24 172/97 H 91 01/06/21 01:33 36.7 C 01/06/21 01:26 101 H 16 102/65 97 01/06/21 00:42 36.7 C 01/06/21 00:26 98 H 16 108/67 97 01/05/21 23:26 101 H 16 95/65 L 96 01/05/21 22:37 95 H 95 H 20 95 01/05/21 22:26 103 H 16 78/53 L 95 01/05/21 21:26 123 H 29 H 152/87 H 96 Laboratory Results Laboratory Results - last 24 hr 01/05/21 01/05/21 01/05/21 09:00 09:00 09:09 WBC RBC Hgb POC Hgb Hct POC Hct MCV MCH MCHC RDW Std Deviation RDW Coeff of [place] Plt Count MPV Immature Gran % (Auto) Neut % (Auto) Lymph % (Auto) Placer % (Auto) Eos % (Auto) Baso % (Auto) Neut # (Auto) Lymph # (Auto) Placer # (Auto) Eos # (Auto) Baso # (Auto) Immature Gran # (Auto) Sample Site POC pH POC pCO2 POC pO2 POC HCO3 POC Total CO2 POC Base Excess ABG pH (Temp Correct) ABG pCO2 (Temp Corrct POC ABG pO2 at Pt Temp POC ABG O2 Sat Enrique Test O2 Delivery Device POC O2 Rate POC FiO2 IPAP POC Sodium Sodium 128 L POC Potassium Potassium 4.3 D Chloride 97 L Carbon Dioxide 25 Anion Gap 6.0 BUN 10 Creatinine 0.57 L Est Cr Clr Drug Dosing 92.0 Est GFR ( Amer) 123.2 Est GFR (Non-Af Amer) 106.3 BUN/Creatinine Ratio 17.5 Glucose 109 H POC Glucose Calcium 8.1 L Phosphorus Magnesium Troponin I 0.800 H* Albumin Procalcitonin < 0.05 Urine Color Urine Appearance Urine pH Ur Specific [place] Urine Protein Urine Glucose (UA) Urine Ketones Urine Blood Urine Nitrite Urine Bilirubin Urine Urobilinogen Ur Leukocyte Esterase Urine WBC (Auto) Urine RBC (Auto) U Hyaline Cast (Auto) U Epithel Cells (Auto) Urine Bacteria (Auto) Ur Renal Epithelial Cell Urine Osmolality Ur Random Sodium Nasal Screen MRSA (PCR) Negative 01/05/21 01/05/21 01/05/21 10:36 10:45 10:45 WBC RBC Hgb POC Hgb 14.3 Hct POC Hct 42 MCV MCH MCHC RDW Std Deviation RDW Coeff of [place] Plt Count MPV Immature Gran % (Auto) Neut % (Auto) Lymph % (Auto) Placer % (Auto) Eos % (Auto) Baso % (Auto) Neut # (Auto) Lymph # (Auto) Placer # (Auto) Eos # (Auto) Baso # (Auto) Immature Gran # (Auto) Sample Site R Radial POC pH 7.19 L* POC pCO2 75 H POC pO2 72 L POC HCO3 29 H POC Total CO2 31 POC Base Excess 0.0 ABG pH (Temp Correct) 7.192 L* ABG pCO2 (Temp Corrct 75 H POC ABG pO2 at Pt Temp 72 POC ABG O2 Sat 89.0 L Enrique Test Pass O2 Delivery Device BIPAP POC O2 Rate POC FiO2 30 IPAP 18 POC Sodium 127 L Sodium POC Potassium 4.0 Potassium Chloride Carbon Dioxide Anion Gap BUN Creatinine Est Cr Clr Drug Dosing Est GFR ( Amer) Est GFR (Non-Af Amer) BUN/Creatinine Ratio Glucose POC Glucose Calcium Phosphorus Magnesium Troponin I Albumin Procalcitonin Urine Color Yellow Urine Appearance Clear Urine pH 6.0 Ur Specific [place] 1.017 Urine Protein 1+ H Urine Glucose (UA) 1+ H Urine Ketones 1+ H Urine Blood 2+ H Urine Nitrite Negative Urine Bilirubin Negative Urine Urobilinogen Negative Ur Leukocyte Esterase Negative Urine WBC (Auto) 1-5 Urine RBC (Auto) 5-10 H U Hyaline Cast (Auto) 5-10 H U Epithel Cells (Auto) >30 H Urine Bacteria (Auto) Negative Ur Renal Epithelial Cell Not Reportable Urine Osmolality 548 Ur Random Sodium Nasal Screen MRSA (PCR) 01/05/21 01/05/21 01/05/21 10:45 13:33 13:45 WBC RBC Hgb POC Hgb 13.6 L Hct POC Hct 40 L MCV MCH MCHC RDW Std Deviation RDW Coeff of [place] Plt Count MPV Immature Gran % (Auto) Neut % (Auto) Lymph % (Auto) Placer % (Auto) Eos % (Auto) Baso % (Auto) Neut # (Auto) Lymph # (Auto) Placer # (Auto) Eos # (Auto) Baso # (Auto) Immature Gran # (Auto) Sample Site R Radial POC pH 7.29 L POC pCO2 59 H POC pO2 78 L POC HCO3 28 H POC Total CO2 30 POC Base Excess 2.0 H ABG pH (Temp Correct) 7.290 L ABG pCO2 (Temp Corrct 58 H POC ABG pO2 at Pt Temp 77 POC ABG O2 Sat 93.0 Enrique Test Pass O2 Delivery Device BIPAP POC O2 Rate 18 POC FiO2 30 IPAP 18 POC Sodium 128 L Sodium POC Potassium 3.8 Potassium Chloride Carbon Dioxide Anion Gap BUN Creatinine Est Cr Clr Drug Dosing Est GFR ( Amer) Est GFR (Non-Af Amer) BUN/Creatinine Ratio Glucose POC Glucose Calcium Phosphorus Magnesium Troponin I 0.726 H* Albumin Procalcitonin Urine Color Urine Appearance Urine pH Ur Specific [place] Urine Protein Urine Glucose (UA) Urine Ketones Urine Blood Urine Nitrite Urine Bilirubin Urine Urobilinogen Ur Leukocyte Esterase Urine WBC (Auto) Urine RBC (Auto) U Hyaline Cast (Auto) U Epithel Cells (Auto) Urine Bacteria (Auto) Ur Renal Epithelial Cell Urine Osmolality Ur Random Sodium 62 Nasal Screen MRSA (PCR) 01/05/21 01/05/21 01/06/21 13:45 20:37 01:28 WBC RBC Hgb POC Hgb Hct POC Hct MCV MCH MCHC RDW Std Deviation RDW Coeff of [place] Plt Count MPV Immature Gran % (Auto) Neut % (Auto) Lymph % (Auto) Placer % (Auto) Eos % (Auto) Baso % (Auto) Neut # (Auto) Lymph # (Auto) Placer # (Auto) Eos # (Auto) Baso # (Auto) Immature Gran # (Auto) Sample Site POC pH POC pCO2 POC pO2 POC HCO3 POC Total CO2 POC Base Excess ABG pH (Temp Correct) ABG pCO2 (Temp Corrct POC ABG pO2 at Pt Temp POC ABG O2 Sat Enrique Test O2 Delivery Device POC O2 Rate POC FiO2 IPAP POC Sodium Sodium Cancelled 131 L POC Potassium Potassium Cancelled 4.3 Chloride Cancelled 95 L Carbon Dioxide Cancelled 27 Anion Gap Cancelled 8.0 BUN Cancelled 10 Creatinine Cancelled 0.51 L Est Cr Clr Drug Dosing Cancelled 102.8 Est GFR ( Amer) Cancelled 128.9 Est GFR (Non-Af Amer) Cancelled 111.2 BUN/Creatinine Ratio Cancelled 18.6 Glucose Cancelled 130 H POC Glucose 112 H Calcium Cancelled 8.5 Phosphorus Cancelled 2.1 L Magnesium Troponin I 0.712 H* Albumin Cancelled 3.2 L Procalcitonin Urine Color Urine Appearance Urine pH Ur Specific [place] Urine Protein Urine Glucose (UA) Urine Ketones Urine Blood Urine Nitrite Urine Bilirubin Urine Urobilinogen Ur Leukocyte Esterase Urine WBC (Auto) Urine RBC (Auto) U Hyaline Cast (Auto) U Epithel Cells (Auto) Urine Bacteria (Auto) Ur Renal Epithelial Cell Urine Osmolality Ur Random Sodium Nasal Screen MRSA (PCR) 01/06/21 01/06/21 01/06/21 04:04 04:23 04:23 WBC 5.52 RBC 3.61 L Hgb 12.8 L POC Hgb 12.6 L Hct 37.9 L POC Hct 37 L MCV 105.0 H MCH 35.5 H MCHC 33.8 RDW Std Deviation 48.0 H RDW Coeff of [place] 12.3 Plt Count 114 L MPV 9.2 Immature Gran % (Auto) 0.2 Neut % (Auto) 85.4 Lymph % (Auto) 10.0 Placer % (Auto) 4.2 Eos % (Auto) 0.0 Baso % (Auto) 0.2 Neut # (Auto) 4.72 Lymph # (Auto) 0.55 L Pl[place] # (Auto) 0.23 Eos # (Auto) 0.00 Baso # (Auto) 0.01 Immature Gran # (Auto) 0.01 Sample Site R Radial POC pH 7.32 L POC pCO2 58 H POC pO2 195 H POC HCO3 30 H POC Total CO2 32 H POC Base Excess 4.0 H ABG pH (Temp Correct) 7.322 L ABG pCO2 (Temp Corrct 58 H POC ABG pO2 at Pt Temp 195 POC ABG O2 Sat 100.0 H Enrique Test Pass O2 Delivery Device Cannula POC O2 Rate POC FiO2 IPAP POC Sodium 131 L Sodium 131 L POC Potassium 3.8 Potassium 3.8 Chloride 97 L Carbon Dioxide 29 Anion Gap 5.0 BUN 10 Creatinine 0.53 L Est Cr Clr Drug Dosing 95.8 Est GFR ( Amer) 126.9 Est GFR (Non-Af Amer) 109.5 BUN/Creatinine Ratio 19.2 Glucose 126 H POC Glucose Calcium 8.3 L Phosphorus 1.8 L Magnesium 2.4 Troponin I Albumin Procalcitonin Urine Color Urine Appearance Urine pH Ur Specific [place] Urine Protein Urine Glucose (UA) Urine Ketones Urine Blood Urine Nitrite Urine Bilirubin Urine Urobilinogen Ur Leukocyte Esterase Urine WBC (Auto) Urine RBC (Auto) U Hyaline Cast (Auto) U Epithel Cells (Auto) Urine Bacteria (Auto) Ur Renal Epithelial Cell Urine Osmolality Ur Random Sodium Nasal Screen MRSA (PCR) PG Care Time/CCT Total # of Minutes Spent Total Time Spent with Patient: Total time spent is greater than 50% in coordination of care (as documented) at patient's floor/unit and/or counseling patient: Coding Level of Care Code 07065 Subseq Hosp Care Lvl 3 Diagnoses Hyponatremia E87.1 COPD exacerbation J44.1 Hypertension I10 Lung nodule R91.1
--- NOTE | 2021-01-06 09:09 | Critical Care Progress Note ---
Date of Service January 06, 2021 Assessment & Plan (1) COPD exacerbation: Plan: 65-year-old male with a history of oxygen dependent COPD, lung nodule, hypertension, alcoholism and coronary artery disease presenting to the hospital due to COPD exacerbation. He was found to be obtunded on the conteh and ultimately transferred to ICU for hypercapnic respiratory failure. Neurologic: Neurological status has significantly improved. He does have a history of a lcohol abuse. Drinks roughly 4-5 beers a day. 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 Will avoid overly sedating medications at this time. Continue thiamine. Pulmonary: Continue BiPAP support while sleeping. Avoid hyperoxia. We will reduce IV Solu- Medrol dose to 40 mg twice daily. 9 x 7 mm lung nodule in the CT chest in 6 months for follow-up. Cardiovascular: Restarting metoprolol. EKG from 01/03/2021 without evidence of ischemia. Trend troponin. Gastrointestinal: We will advance diet. Renal: Monitor hyponatremia. Likely due to poor solute intake. Possibility of SIADH given acute COPD exacerbation. He also has a 9 x 7 mm lung nodule. Infectious disease: Continue azithromycin and ceftriaxone for 5 days. Cultures pending. Hematologic: No significant issues. Endocrine: Glucose management per ICU protocol. TSH checked 01/04/2021 within normal limits. VTE prophylaxis: Lovenox CODE STATUS: Full code. Prognosis poor. Palliative care is following along with us. Family at bedside: None available at bedside. Patient is stable for downgrade for transfer to the floor with telemetry. (2) Acute and chronic respiratory failure with hypercapnia: (3) Altered mental state: (4) Hyponatremia: Admission and Anticipated Discharge Date Admission Date: January 03, 2021 Subjective Patient seen and examined this morning. He is much more awake and alert. He is currently on nasal cannula. Denies any significant chest pain. No fevers overnight. Shortness of breath symptoms are minimal. Tolerated BiPAP overnight. Review of Systems Review of Systems: 03/05 point ROS negative unless noted elsewhere Physical Exam Physical Exam: Constitutional: Thin appearing male in no apparent distress. Eyes: Pupils are equal round and reactive to light. Conjunctivae are normal. Anicteric sclera. Neck: Trachea is midline. Visual inspection is normal. Respiratory: Diminished lung sounds bilaterally. Prolonged phase of exhalation. Cardiovascular: Regular rate and rhythm. No murmurs. No edema. Gastrointestinal: Normal bowel sounds, soft, nontender and nondistended. No hepatosplenomegaly noted. Musculoskeletal: No cyanosis. Patient is able to move all extremities. Strength is 5 out of 5 in the upper and lower extremities. Skin: No rashes, warm dry and intact. Neurologic: No obvious focal neurological deficits seen. Psychiatric: Alert and oriented x3 with a euthymic affect. Results & Data Results & Data ([facility]) Vital Signs (Past 12 Hours) Vital Signs Temp Pulse Pulse Resp BP Pulse Ox 01/06/21 07:10 102 H 20 100 01/06/21 05:26 96 H 14 129/73 100 01/06/21 05:00 104 H 18 133/88 99 01/06/21 04:50 107 H 20 96 01/06/21 04:40 109 H 21 97 01/06/21 04:30 108 H 21 98 01/06/21 04:29 109 H 23 98 01/06/21 04:00 98.4 F 01/06/21 03:26 99 H 17 103/64 100 01/06/21 03:19 103 H 22 96 01/06/21 02:26 128 H 24 172/97 H 91 01/06/21 01:33 98.1 F 01/06/21 01:26 101 H 16 102/65 97 01/06/21 00:42 98.1 F 01/06/21 00:26 98 H 16 108/67 97 01/05/21 23:26 101 H 16 95/65 L 96 01/05/21 22:37 95 H 95 H 20 95 01/05/21 22:26 103 H 16 78/53 L 95 01/05/21 21:26 123 H 29 H 152/87 H 96 Vital signs, labs and imaging personally reviewed Coding Level of Care Code 63286 Subseq Hosp Care Lvl 3 Diagnoses COPD exacerbation J44.1 Acute and chronic respiratory failure with hypercapnia J96.22 Altered mental state R41.82 Hyponatremia E87.1
[2021-01-06] MEDS: lisinopril 20 MG TAB PO SCH (12:00)
[2021-01-06] MEDS ORDERED: hydrALAZINE HCL 20 MG/ML VIAL IV ONE (12:51)
[2021-01-06] MEDS ORDERED: MoRPHine SULFATE 2 MG/ML CARP IV STA (12:52)
[2021-01-06] MEDS ORDERED: FUROSEMIDE 40 MG/4 ML VIAL IV ONE (12:56)
[2021-01-06] MEDS ORDERED: hydrALAZINE HCL 20 MG/ML VIAL ONE (12:56)
[2021-01-06] MEDS ORDERED: MoRPHine SULFATE 2 MG/ML CARP ONE (12:56)
[2021-01-06] MEDS ORDERED: FUROSEMIDE 20 MG in SYRINGE 0 ML IV ONE (13:00)
--- NOTE | 2021-01-06 13:30 | XRay Report ---
SINGLE VIEW CHEST CLINICAL HISTORY: Hypoxia. FINDINGS: An AP, portable, upright chest radiograph is compared to study dated 01/05/2021 and correlat ed with chest CT dated 01/03/2021. The cardiomediastinal silhouette is unremarkable noting atheroscler otic calcification of the thoracic aorta. The pulmonary vasculature is noncongested. Emphysema and ch ronic interstitial thickening is similar to previous. There is increasing airspace consolidation seen throughout the left mid to lower lung. No large pleural effusion or pneumothorax is seen. The skelet al structures are osteopenic. The bony thorax is grossly intact. IMPRESSION: 1. There is increasing airspace consolidation in the left mid to lower lung. Correlate clinically for evidence of pneumonia/aspiration pneumonitis. Radiographic follow-up to resolution is recommended. 2. Advanced emphysema. ACT 112: Negative or not required by law. Electronically signed by: Sean Mendez M.D. 01/06/2021 1:28 PM
[2021-01-06] MEDS ORDERED: ROCURONIUM BROMIDE 10 MG/ML 5 ML VIAL IV ONE (15:06)
[2021-01-06] MEDS ORDERED: PROPOFOL BOLUS FROM BAG IV PRN (15:06)
[2021-01-06] MEDS ORDERED: STAT IV Infusion **Titration per Protocol STA ×2 (15:06→18:11)
[2021-01-06] MEDS ORDERED: ETOMIDATE 2 MG/ML 20 ML VIAL IV ONE (15:07)
[2021-01-06] MEDS ORDERED: PROPOFOL IV EMULSION 10 MG/ML 100 ML VIAL IV ONE (15:08)
[2021-01-06] MEDS ORDERED: propofoL 1,000 MG/100 ML VIAL IV SCH (15:15)
[2021-01-06] MEDS ORDERED: NOREPINEPHRINE/D5W 8 MG/508 ML IV ONE (15:44)
--- NOTE | 2021-01-06 15:54 | Procedure Note ---
Procedure Note Date of Service January 06, 2021 Supervising Physician Co-Signing Physician Notes INTUBATION PROCEDURE NOTE: Dr. Trung Leigh A time-out was completed verifying correct patient, procedure, site, positioning. Patient was evaluated and required intubation for acute hypoxemic and hypercapnic respiratory failure. Sedative agent used: 20 mg of etomidate Paralysis agent used: 50 mg of rocuronium Verbal consent was obtained from the patient's daughter. She understood the risks and benefits of the procedure. Number of attempts: 1 The patient was prepared in the appropriate fashion. Sedation was achieved utilizing etomidate and rocuronium. The patient was easily ventilated using [id number] to achieve adequate oxygenation. A 8 [place] endotracheal tube was placed under video laryngoscope guidance to 24 cm at the lip. The stylette was removed and balloon was inflated with 10mL of air. Appropriate Colorimetric change was appreciated. Bilateral breath sounds were heard without air sounds in the abdomen. Post Intubation Chest X-ray ordered. Patient became profoundly hypotensive post intubation with systolic blood pressures of 40s over 30. He was started on peripheral Levophed. His blood pressures rebounded to the 132/82 range. We are currently weaning the Levophed off. He had significant air trapping noted on the ventilator. We decrease his respiratory rate to 12 breaths/min and increase his tidal volume to 450 mL. Once his blood pressures improved, we will continue with propofol and fentanyl for sedation and analgesia. Coding CPT Codes Resuscitation - Resuscitation: 69676 Endotracheal Intubation, emergency ([id number]) [facility] [place] Resuscitation Resuscitation: 32443 Endotracheal Intubation, emergency
--- NOTE | 2021-01-06 15:56 | Communication Note ---
Date of Service: January 06, 2021 Throughout the day the patient's clinical condition continued to decline. His respiratory rate increased. He was requiring BiPAP support with an FiO2 of 70%. He was becoming more lethargic. I had a lengthy discussion with the patient's daughter and given the patient's prior wishes, it was elected to go ahead and intubate the patient and place him on a mechanical ventilator due to his worsening respiratory status. The patient's daughter relates that he has been losing approximately 25 pounds over the last several months. She feels that there has been somewhat of a decline over the last several weeks to months in terms of his functional status. Prior to this, she does relate that he was very functional and not had a recent COPD exacerbation. Patient was emergently intubated. He is currently on Levophed due to post intubation hypotension. Hypotension is improving slowly. Coding Level of Care Code Critical Care 1st 30-74 mins Time Spent (min) 30
[2021-01-06] MEDS: fentaNYL DRIP 1,250 MCG/250 ML BAG IV SCH (16:13)
--- NOTE | 2021-01-06 16:22 | XRay Report ---
SINGLE VIEW CHEST CLINICAL HISTORY: Intubation. FINDINGS: 2 AP, portable, upright chest radiographs are compared to study performed earlier the same day 01/06/2021 and correlated with chest CT dated 01/03/2021. The examination is degraded by portable t echnique and patient rotation. And enteric tube has been placed. The tip projects below the diaphragm over the distal stomach. An endotracheal tube has been placed. The tip projects approximately 5.5 cm above the kye. The cardiomediastinal silhouette is unremarkable noting atherosclerotic calcificat ion of the thoracic aorta. The pulmonary vasculature is noncongested. Emphysema and chronic interstit ial thickening is similar to previous. Again seen is airspace consolidation throughout the left mid t o lower lung. No large pleural effusion or pneumothorax is seen. The skeletal structures are osteopen ic. The bony thorax is grossly intact. IMPRESSION: 1. Endotracheal and enteric tubes have been placed as above. 2. Airspace consolidation in the left mid lower lung is unchanged. Radiographic follow-up to resoluti on is recommended. 3. Advanced emphysema. ACT 112: Negative or not required by law. Electronically signed by: Sean Mendez M.D. 01/06/2021 4:21 PM
--- NOTE | 2021-01-06 16:29 | XRay Report ---
KUB CLINICAL HISTORY: Enteric tube placement. FINDINGS: An AP, portable, supine abdominal radiograph is obtained. No prior studies are available fo r comparison at the time of dictation. An enteric tube has been placed. The tip projects below the di aphragm over the distal stomach. There is no bowel obstruction. No evidence of intraperitoneal free a ir is seen on these supine images. There are no abnormal abdominal calcifications. Airspace consolida tion is seen at the left lung base. The bony structures appear intact. IMPRESSION: An enteric tube has been placed as above. Electronically signed by: Sean Mendez M.D. 01/06/2021 4:27 PM
--- NOTE | 2021-01-06 17:03 | Electrocardiogram Report ---
Test Reason : Blood Pressure : / mmHG Vent. Rate : 093 BPM Atrial Rate : 093 BPM P-R Int : 114 ms QRS Dur : 082 ms QT Int : 332 ms P-R-T Axes : 085 074 055 degrees QTc Int : 412 ms Poor data quality, interpretation may be adversely affected Normal sinus rhythm Normal ECG When compared with ECG of 03-JAN-2021 17:37, Premature atrial complexes are no longer Present Criteria for Septal infarct are no longer Present Nonspecific T wave abnormality no longer evident in Anterior leads Confirmed by Andreas Burk ([id number]) on 01/06/2021 5:03:09 PM Referred By: REFERRED SELF Confirmed By:Andreas Burk
[2021-01-06 17:26] LABS: iSTAT Allen Test Pass; iSTAT Art Bld Gas pCO2 Correct 70 mmHg (35-46); iSTAT Arterial Blood Gas HCO3 36 meg/L (19-24); iSTAT Arterial Blood Gas pCO2 69 mmHg (35-46); iSTAT Arterial Blood Gas pH 7.32 (7.35-7.45); iSTAT Arterial Blood Gas pO2 96 mmHg (80-95); iSTAT Arterial Blood Gas pO2 C 98; iSTAT Carbon Dioxide 38 mmol/L (24-31); iSTAT FiO2 60 %; iSTAT Hematocrit 43 % (42-52); iSTAT Hemoglobin 14.6 g/dl (14.0-18.0); iSTAT Potassium 3.8 mmol/L (3.3-5.0); iSTAT Site R Radial; iSTAT Sodium 133 mmol/L (135-144)
[2021-01-06] MEDS ORDERED: NOREPINEPHRINE/D5W 8 MG/508 ML BAG IV SCH (18:15)
[2021-01-06 19:49] LABS: Albumin Level 2.5 gm/dl (3.4-5.0); BUN Creatinine Ratio 23.4 (10-20); Calcium 8.6 mg/dl (8.5-10.1); Creatinine Clr Calc Pharmacy 89.1 ml/min; Est GFR (African American) 123.2 ml/min; Est GFR (Non-African American) 106.3 ml/min
[2021-01-06 19:50] LABS: Phosphorus 1.9 mg/dl (2.5-4.9)
[2021-01-06] MEDS: methylPREDNISolone 40 MG in SYRINGE 0 ML IV SCH (21:13)
--- NOTE | 2021-01-06 22:10 | Hospitalist Progress Note ---
Date of Service January 06, 2021 Assessment & Plan (1) Hypoxia: Plan: due to COPD exacerbation progressed to need for intubation today management per Dr. Leigh (2) COPD exacerbation: Plan: 65 yo M with hx sudden cardiac arrest s/p RCA stent, CAD, HTN, HLD, COPD, current smoker admitted for COPD exacerbation and hyponatremia. COPD Exacerbation - Solu Medrol 40 q12, Rocephin, Zithromax now intubated - CTA w/ evidence of bronchitis, chronic pulm nodules that will need follow up, no sign of pneumonia recommend pulmonary nodule clinic follow-up patient decompensated in afternoon, required emergent intubation (3) Acute and chronic respiratory failure with hypercapnia: Plan: CO2 still elevated despite BIPAP, likely air trapping emergent intubation this afternoon (4) Hypercapnia: Plan: see above (5) Hyponatremia: Plan: Hyponatremia - likely secondary to progressive diarrhea and dehydration & daily beer intake with 1 TV dinner daily for nutrition - - VBG and BMP indicative of nongap metabolic acidosis - BMP Q4H, goal sodium increase of <8 meq/24 h - urine Na 498, sosm 268, urine na 38. Continue volume repletion and remeasure - Na coming up to 144 nephrology following (6) Hypertension: Plan: - Continue SARKIS, MTP as noted in CAD (7) Hypercholesterolemia: Plan: - Continue rosuvastatin (8) CAD (coronary artery disease): Plan: - Continue lisinopril - Continue MTP 200mg BID - Continue Aspirin - Continue rosuvastatin (9) COPD (chronic obstructive pulmonary disease): Plan: - See COPD exacerbation (10) Elevated d-dimer: Plan: - likely due to viral infection causing COPD ex, - CTA Chest negative for PE, no sx or swelling indicative of DVT, no hx clotting (11) Lung nodule: Plan: Chest CTA revealed a 9X 7 mm left apical nodule suggestive of pleuralparenchymal scarring however, is new from 2007. A 6-month follow-up chest CT is recommended and referred to lung nodule program (12) Daily consumption of alcohol: Plan: - 3 to 4 beers daily, no history of withdrawal/DTs - Last drink evening 01/02 - Pt reports increased anxiety, denies tremors/hallucinations/sweats/chills/palpitations. - active withdrawal protocol (13) Anxiety: Plan: - patient has seen a therapist and psychiatry as outpatient who is interested in seeing again Psych consulted, appreciate recommendations Continue lorazepam every 4 hours as needed, note patient also on KYLE S Anticipate anxiety may be worse in the setting of steroid treatment Patient previously on Lexapro, but with severe fatigue. SSRI not appropriate at this time given hyponatremia (14) Smoking: Plan: May use patch if cravings, deferred at this time due to increased anxiety and tremulousness Plan: remain in ICU Admission and Anticipated Discharge Date Admission Date: January 03, 2021 Subjective patient deteriorated despite BIPAP with FiO2 of 70% tachypnea this morning and afternoon ICU discussed with his family, his daughter gave permission for intubation and ventilation he had some hypotension after intubation, resolved with Levophed now sedated with Propofol Review of Systems Review of Systems: Unobtainable due to endotracheal tube Physical Exam Constitutional: + thin, + altered mental status and + mechanically ventilated; no acute distress Neck: trachea midline, no thyromegaly Respiratory: normal respiratory effort (intubated and ventilated) Auscultation: + diminished lung sounds; no crackles, no rales, no rhonchi and no wheezes Cardiovascular: RRR, no murmur, no edema Gastrointestinal (Abdomen): normal bowel sounds, soft, nontender, no hepatosplenomegaly Musculoskeletal: Head/Neck/Chest: normocephalic, head atraumatic and neck supple Extremities: extremities normal to inspection and + abnormal strength; no cyanosis, no clubbing and no petechiae Skin: no rashes, warm and dry Neurologic: CN's II-XI intact bilaterally, moves all extremities and + obtunded; no focal motor deficits Results & Data Results & Data ([facility]) Vital Signs (Past 12 Hours) Vital Signs Temp Pulse Pulse Resp BP Pulse Ox Pulse Ox 01/06/21 20:51 96 01/06/21 20:46 89 14 95 01/06/21 20:07 38.0 C H 87 140/85 96 01/06/21 19:55 38.0 C H 100 H 144/94 H 93 01/06/21 19:30 38.0 C H 89 116/70 97 01/06/21 19:20 38.0 C H 88 95/62 L 98 01/06/21 19:10 38.0 C H 87 95/62 L 98 01/06/21 19:00 37.9 C H 84 99/73 L 98 01/06/21 18:50 37.8 C H 88 97/65 L 98 01/06/21 18:40 37.7 C H 80 107/76 98 01/06/21 18:30 37.7 C H 85 95/60 L 98 01/06/21 18:20 37.7 C H 85 90/67 L 98 01/06/21 18:10 37.6 C H 85 102/66 99 01/06/21 18:00 37.5 C 76 116/69 97 01/06/21 17:50 37.4 C 80 84/59 L 98 01/06/21 17:46 37.5 C 83 83/53 L 98 01/06/21 17:30 37.4 C 92 H 50/34 L 95 01/06/21 17:16 37.3 C 97 H 88/57 L 96 01/06/21 17:00 37.1 C 98 H 157/78 H 96 01/06/21 16:54 102 H 12 95 01/06/21 16:46 37.1 C 104 H 130/79 96 01/06/21 16:32 102 H 01/06/21 16:16 101 H 111/70 95 01/06/21 16:00 103 H 158/95 H 97 01/06/21 15:47 101 H 62/51 L 92 01/06/21 15:33 102 H 33 H 122/80 93 01/06/21 15:15 98 H 28 H 111/81 95 01/06/21 15:13 102 H 26 H 115/77 95 01/06/21 14:40 37.1 C 01/06/21 14:26 96 H 25 H 116/71 95 01/06/21 13:27 95 H 29 H 117/69 92 01/06/21 12:42 90 28 H 90 01/06/21 12:24 89 44 H 167/102 H 89 L 01/06/21 12:00 37 C 01/06/21 11:26 90 28 H 183/116 H 100 01/06/21 10:59 91 H 25 H 96 01/06/21 10:26 99 H 22 167/96 H 97 Laboratory Results Laboratory Results - last 24 hr 01/06/21 01/06/21 01/06/21 01:28 04:04 04:23 WBC 5.52 RBC 3.61 L Hgb 12.8 L POC Hgb 12.6 L Hct 37.9 L POC Hct 37 L MCV 105.0 H MCH 35.5 H MCHC 33.8 RDW Std Deviation 48.0 H RDW Coeff of [place] 12.3 Plt Count 114 L MPV 9.2 Immature Gran % (Auto) 0.2 Neut % (Auto) 85.4 Lymph % (Auto) 10.0 Marshall % (Auto) 4.2 Eos % (Auto) 0.0 Baso % (Auto) 0.2 Neut # (Auto) 4.72 Lymph # (Auto) 0.55 L Marshall # (Auto) 0.23 Eos # (Auto) 0.00 Baso # (Auto) 0.01 Immature Gran # (Auto) 0.01 Sample Site R Radial POC pH 7.32 L POC pCO2 58 H POC pO2 195 H POC HCO3 30 H POC Total CO2 32 H POC Base Excess 4.0 H ABG pH (Temp Correct) 7.322 L ABG pCO2 (Temp Corrct 58 H POC ABG pO2 at Pt Temp 195 POC ABG O2 Sat 100.0 H Enrique Test Pass O2 Delivery Device Cannula POC O2 Rate Minute Ventilation POC FiO2 Tidal Volume PEEP POC Sodium 131 L Sodium POC Potassium 3.8 Potassium Chloride Carbon Dioxide Anion Gap BUN Creatinine Est Cr Clr Drug Dosing Est GFR ( Amer) Est GFR (Non-Af Amer) BUN/Creatinine Ratio Glucose POC Glucose 112 H Calcium Phosphorus Magnesium Troponin I Albumin Urine Legionella Ag 01/06/21 01/06/21 01/06/21 04:23 12:54 17:00 WBC RBC Hgb POC Hgb Hct POC Hct MCV MCH MCHC RDW Std Deviation RDW Coeff of [place] Plt Count MPV Immature Gran % (Auto) Neut % (Auto) Lymph % (Auto) Marshall % (Auto) Eos % (Auto) Baso % (Auto) Neut # (Auto) Lymph # (Auto) Marshall # (Auto) Eos # (Auto) Baso # (Auto) Immature Gran # (Auto) Sample Site POC pH POC pCO2 POC pO2 POC HCO3 POC Total CO2 POC Base Excess ABG pH (Temp Correct) ABG pCO2 (Temp Corrct POC ABG pO2 at Pt Temp POC ABG O2 Sat Enrique Test O2 Delivery Device POC O2 Rate Minute Ventilation POC FiO2 Tidal Volume PEEP POC Sodium Sodium 131 L POC Potassium Potassium 3.8 Chloride 97 L Carbon Dioxide 29 Anion Gap 5.0 BUN 10 Creatinine 0.53 L Est Cr Clr Drug Dosing 95.8 Est GFR ( Amer) 126.9 Est GFR (Non-Af Amer) 109.5 BUN/Creatinine Ratio 19.2 Glucose 126 H POC Glucose Calcium 8.3 L Phosphorus 1.8 L Magnesium 2.4 Troponin I 0.883 H* Albumin Urine Legionella Ag Cancelled 01/06/21 01/06/21 01/06/21 17:12 19:22 19:22 WBC RBC Hgb POC Hgb 14.6 Hct POC Hct 43 MCV MCH MCHC RDW Std Deviation RDW Coeff of [place] Plt Count MPV Immature Gran % (Auto) Neut % (Auto) Lymph % (Auto) Marshall % (Auto) Eos % (Auto) Baso % (Auto) Neut # (Auto) Lymph # (Auto) Marshall # (Auto) Eos # (Auto) Baso # (Auto) Immature Gran # (Auto) Sample Site R Radial POC pH 7.32 L POC pCO2 69 H POC pO2 96 H POC HCO3 36 H POC Total CO2 38 H POC Base Excess 10.0 H ABG pH (Temp Correct) 7.320 L ABG pCO2 (Temp Corrct 70 H POC ABG pO2 at Pt Temp 98 POC ABG O2 Sat 96.0 H Enrique Test Pass O2 Delivery Device Ventilator POC O2 Rate 12 Minute Ventilation 5.4 POC FiO2 60 Tidal Volume 450 PEEP 5 POC Sodium 133 L Sodium 133 L POC Potassium 3.8 Potassium 4.0 Chloride 97 L Carbon Dioxide 33 H Anion Gap 4.0 BUN 13 Creatinine 0.57 L Est Cr Clr Drug Dosing 89.1 Est GFR ( Amer) 123.2 Est GFR (Non-Af Amer) 106.3 BUN/Creatinine Ratio 23.4 H Glucose 140 H POC Glucose Calcium 8.6 Phosphorus 1.9 L Magnesium Troponin I 0.794 H* Albumin 2.5 L Urine Legionella Ag Medications Administered Current Inpatient Medications Acetaminophen (Acetaminophen 325 Mg Tab) 650 mg PO Q4H PRN PRN Reason: pain/fever Stop: 02/02/21 22:07 Last Admin: 01/04/21 11:28 Dose: 650 mg Documented by: Al Hydrox/Mg Hydrox/Simethicone (Aluminum/Magnesium Susp 30 Ml Udc) 30 ml PO Q6H PRN PRN Reason: Dyspepsia Stop: 02/02/21 22:07 Albuterol (Albut/Ipratrop 3mg/0.5mg Neb 3 Ml Vial) 3 ml NEB Q4R STACEY Stop: 02/02/21 22:59 Last Admin: 01/06/21 19:58 Dose: 3 ml Documented by: Albuterol (Albut/Ipratrop 3mg/0.5mg Neb 3 Ml Vial) 3 ml NEB Q2H PRN PRN Reason: sob Stop: 02/02/21 22:07 Last Admin: 01/05/21 05:56 Dose: 3 ml Documented by: Aspirin (Aspirin 81 Mg Ectab) 81 mg PO DAILY [facility] Stop: 02/03/21 08:59 Last Admin: 01/06/21 09:04 Dose: 81 mg Documented by: Calcium Carbonate (Calcium Carbonate 500 Mg Chewable Tab) 500 mg PO Q4H PRN PRN Reason: Indigestion Stop: 02/03/21 08:14 Last Admin: 01/04/21 08:27 Dose: 500 mg Documented by: Ezetimibe (Ezetimibe 10 Mg Tablet) 10 mg PO DAILY [facility] Stop: 02/03/21 08:59 Last Admin: 01/06/21 09:04 Dose: 10 mg Documented by: Enoxaparin Sodium (Enoxaparin Inj 40 Mg/0.4 Ml Syr) 40 mg SQ QAM [facility] Stop: 02/04/21 08:59 Last Admin: 01/06/21 09:05 Dose: 40 mg Documented by: Fentanyl Citrate (Fentanyl Bolus From Bag) 50 mcg IV Q60M PRN PRN Reason: Pain or Agitation Stop: 01/20/21 15:05 Folic Acid (Folic Acid 1 Mg Tab) 1 mg PO DAILY [facility] Stop: 02/03/21 08:59 Last Admin: 01/06/21 09:04 Dose: 1 mg Documented by: Thiamine HCl 200 mg/ Sodium (Chloride) 52 mls @ 208 mls/hr IV QAM [facility] Stop: 02/04/21 08:59 Last Infusion: 01/06/21 09:19 Dose: Infused Documented by: Azithromycin 250 mg/ Dextrose 252.5 mls @ 125 mls/hr IV Q24H [facility] Stop: 01/10/21 08:59 Last Infusion: 01/06/21 11:39 Dose: Infused Documented by: Ceftriaxone Sodium 1,000 mg/ (Dextrose) 50 mls @ 100 mls/hr IV Q24H [facility]; Protocol Stop: 01/12/21 08:59 Last Infusion: 01/06/21 09:37 Dose: Infused Documented by: Methylprednisolone 40 mg/ (Syringe) 0.64 mls @ 1.5 mls/min IV BID STACEY Stop: 02/05/21 20:59 Last Admin: 01/06/21 21:13 Dose: 1.5 mls/min Documented by: Fentanyl Citrate (Fentanyl Drip) 1,250 mcg in 250 mls @ 10 mls/hr IV .Q25H [facility]; Protocol Stop: 01/20/21 15:14 Last Titration: 01/06/21 19:26 Dose: 50 mcg/hr, 10 mls/hr Documented by: Norepinephrine Bitartrate (Levophed/D5w) 8 mg in 508 mls @ 9.544 mls/hr IV .Q24H [facility]; Protocol Stop: 02/05/21 18:14 Last Titration: 01/06/21 20:58 Dose: 0.05 mcg/kg/min, 9.5 mls/hr Documented by: Lisinopril (Lisinopril 20 Mg Tab) 20 mg PO DAILY [facility] Stop: 02/03/21 08:59 Last Admin: 01/06/21 12:00 Dose: 20 mg Documented by: Miscellaneous (Remove Nicoderm Patch) 1 ea N/A DAILY@0859 PRN PRN Reason: IF PATCH APPLIED Stop: 02/03/21 08:58 Nicotine (Nicotine 7 Mg/24 Hr Tdsy) 7 mg TD QAM PRN PRN Reason: agitation Stop: 02/02/21 22:07 Last Admin: 01/04/21 10:38 Dose: 7 mg Documented by: Ondansetron HCl (Ondansetron Inj 2 Mg/Ml 2 Ml Vial) 4 mg IV Q6H PRN PRN Reason: Nausea Stop: 02/02/21 22:07 Polyethylene Glycol (Polyethylene (Miralax) 17 Gm Pack) 17 gm PO DAILY PRN PRN Reason: Constipation Stop: 02/02/21 22:07 Propofol (Propofol Bolus From Bag) 20 mg IV Q5M PRN PRN Reason: Sedation Stop: 01/09/21 15:05 Rosuvastatin Calcium (Rosuvastatin Calcium 20 Mg Tab) 20 mg PO DAILY [facility] Stop: 02/03/21 08:59 Last Admin: 01/06/21 09:04 Dose: 20 mg Documented by: Thiamine HCl (Thiamine Hcl 100 Mg Tab) 100 mg PO QAM [facility] Stop: 02/03/21 08:59 Last Admin: 01/06/21 09:04 Dose: 100 mg Documented by: Umeclidinium [place] (Umeclidinium [place] 62.5mcg/Blister 7 Puffs/Inhaler) 1 puffs INH DAILY [facility] Stop: 02/03/21 08:59 Last Admin: 01/06/21 09:04 Dose: 1 puffs Documented by: PG Care Time/CCT Total # of Minutes Spent Total Time Spent with Patient: Total time spent is greater than 50% in coordination of care (as documented) at patient's floor/unit and/or counseling patient: Coding Level of Care Code 00318 Subseq Hosp Care Lvl 2 Diagnoses Hypoxia R09.02 COPD exacerbation J44.1 Acute and chronic respiratory failure with hypercapnia J96.22 Hypercapnia R06.89 Hyponatremia E87.1 Smoking F17.200 Hypertension I10 Hypercholesterolemia E78.00 CAD (coronary artery disease) I25.10 COPD (chronic obstructive pulmonary disease) J44.9 COPD type: unspecified COPD Elevated d-dimer R79.89 Lung nodule R91.1 Daily consumption of alcohol Z78.9 Anxiety F41.9 (1) COPD (chronic obstructive pulmonary disease) COPD type: unspecified COPD Qualified Code(s): J44.9 - Chronic obstructive pulmonary disease, unspecified
[2021-01-06] MEDS ORDERED: POTASSIUM PHOSPHATE 30 MMOL in SODIUM CHLORIDE 0.9% 500 ML IV ONE (23:15)
[2021-01-07] MEDS: ALBUT/IPRATROP 3MG/0.5MG NEB 3 ML VIAL NEB SCH ×6 (03:10→23:10)
[2021-01-07 03:44] LABS: iSTAT Arterial Blood Gas HCO3 35 meg/L (19-24); iSTAT Arterial Blood Gas pCO2 49 mmHg (35-46); iSTAT Arterial Blood Gas pH 7.46 (7.35-7.45); iSTAT Arterial Blood Gas pO2 67 mmHg (80-95); iSTAT Carbon Dioxide 36 mmol/L (24-31); iSTAT FiO2 40 %; iSTAT Site R Radial
[2021-01-07 05:00] LABS: Basophils # (auto) 0.01 K/uL (0-0.2); Basophils % (auto) 0.1 %; Hematocrit (blood only) 37.5 % (42-52); Hemoglobin 12.8 g/dL (14.0-18.0); Immature Granulocytes # (auto) 0.02 K/uL (0.00-0.02); Immature Granulocytes % (auto) 0.2 %; Lymphocytes # (auto) 0.49 K/uL (1.2-3.4); Lymphocytes % (auto) 4.5 %; Mean Corpuscular Hemoglobin 35.1 pg (25-34); Mean Corpuscular Hgb Conc 34.1 g/dL (32-36); Mean Corpuscular Volume 102.7 fL (80-100); Mean Platelet Volume 9.2 fL (7.4-10.4); Monocytes # (auto) 0.53 K/uL (0.11-0.59); Monocytes % (auto) 4.9 %; Neutrophils # (auto) 9.73 K/uL (1.4-6.5); Neutrophils % (auto) 90.3 %; Platelet Count 117 K/uL (130-400); RDW Coefficient of Variation 12.7 % (11.5-14.5); Red Blood Count 3.65 M/uL (4.7-6.1); White Blood Count 10.78 K/uL (4.8-10.8)
[2021-01-07 05:29] LABS: BUN Creatinine Ratio 28.2 (10-20); Calcium 8.1 mg/dl (8.5-10.1); Est GFR (African American) 133.3 ml/min; Magnesium 2.2 mg/dl (1.8-2.4); Potassium 4.4 mmol/L (3.5-5.1)
[2021-01-07 05:30] LABS: Phosphorus 3.8 mg/dl (2.5-4.9)
[2021-01-07] MEDS: FOLIC ACID 1 MG TAB PO SCH (08:38)
[2021-01-07] MEDS: EZETIMIBE 10 MG TABLET PO SCH (08:38)
[2021-01-07] MEDS: ROSUVASTATIN CALCIUM 20 MG TAB PO SCH (08:39)
[2021-01-07] MEDS: THIAMINE HCL 100 MG TAB PO SCH (08:39)
[2021-01-07] MEDS: ENOXAPARIN INJ 40 MG/0.4 ML SYR SQ SCH (08:39)
[2021-01-07] MEDS: THIAMINE HCL 200 MG in SODIUM CHLORIDE 0.9% 50 ML IV SCH (08:41)
[2021-01-07] MEDS: lisinopril 20 MG TAB PO SCH (08:50)
[2021-01-07] MEDS: cefTRIAXone SODIUM 1,000 MG in DEXTROSE 5% 50 ML IV SCH (08:50)
[2021-01-07] MEDS: AZITHROMYCIN 250 MG in DEXTROSE 5% 250 ML IV SCH (08:50)
[2021-01-07] MEDS: methylPREDNISolone 40 MG in SYRINGE 0 ML IV SCH ×2 (08:51→21:00)
[2021-01-07] MEDS: ASPIRIN 81 MG CHEW PO SCH (08:54)
--- NOTE | 2021-01-07 09:47 | Nephrology Progress Note ---
Date of Service January 07, 2021 Assessment & Plan (1) Hyponatremia: Plan: Continued improvement. Tolerated intravascular volume expansion. Continue aggressive PO4 replacement. Sodium stable and acceptable. Continued regular monitoring encouraged. Repeat metabolic profile tomorrow AM. Nephrology will follow peripherally. Please call with questions or concerns. Admission and Anticipated Discharge Date Admission Date: January 03, 2021 Subjective Intubated. Remains on vent support. Comfortable. Review of Systems Review of Systems: Unobtainable due to endotracheal tube Physical Exam Constitutional: + thin and + mechanically ventilated; no acute distress Eyes: + anicteric sclerae Neck: trachea midline, no thyromegaly Respiratory: normal respiratory effort (intubated and ventilated) Auscultation: + diminished lung sounds; no crackles, no rales, no rhonchi and no wheezes Cardiovascular: Rate/Rhythm: + tachycardic Heart Sounds: normal S1 and normal S2 Extremities: no edema Musculoskeletal: Head/Neck/Chest: normocephalic, head atraumatic and neck supple Extremities: extremities normal to inspection and + abnormal strength; no cyanosis, no clubbing and no petechiae Skin: no rashes, warm and dry Neurologic: moves all extremities and awake Results & Data ([facility]) Vital Signs (Past 12 Hours) Vital Signs Temp Pulse Pulse Resp BP Pulse Ox 01/07/21 07:32 109 H 109 H 14 96 01/07/21 05:36 37.5 C 99 H 137/77 96 01/07/21 04:36 37.5 C 107 H 166/91 H 94 01/07/21 03:36 37.6 C H 105 H 148/83 H 93 01/07/21 03:26 99 H 15 94 01/07/21 02:36 37.7 C H 87 105/64 96 01/07/21 01:36 37.6 C H 87 103/68 96 01/07/21 01:31 89 01/07/21 00:36 37.7 C H 91 H 103/63 96 01/06/21 23:36 37.8 C H 89 106/67 95 01/06/21 22:57 94 H 14 94 01/06/21 22:36 38.0 C H 92 H 131/77 95 Laboratory Results Laboratory Results - last 24 hr 01/06/21 01/06/21 01/06/21 12:54 17:00 17:12 WBC RBC Hgb POC Hgb 14.6 Hct POC Hct 43 MCV MCH MCHC RDW Std Deviation RDW Coeff of Candelaria Plt Count MPV Immature Gran % (Auto) Neut % (Auto) Lymph % (Auto) [place] % (Auto) Eos % (Auto) Baso % (Auto) Neut # (Auto) Lymph # (Auto) [place] # (Auto) Eos # (Auto) Baso # (Auto) Immature Gran # (Auto) Sample Site R Radial POC pH 7.32 L POC pCO2 69 H POC pO2 96 H POC HCO3 36 H POC Total CO2 38 H POC Base Excess 10.0 H ABG pH (Temp Correct) 7.320 L ABG pCO2 (Temp Corrct 70 H POC ABG pO2 at Pt Temp 98 POC ABG O2 Sat 96.0 H Enrique Test Pass O2 Delivery Device Ventilator POC O2 Rate 12 Minute Ventilation 5.4 POC FiO2 60 Tidal Volume 450 PEEP 5 POC Sodium 133 L Sodium POC Potassium 3.8 Potassium Chloride Carbon Dioxide Anion Gap BUN Creatinine Est Cr Clr Drug Dosing Est GFR ( Amer) Est GFR (Non-Af Amer) BUN/Creatinine Ratio Glucose Calcium Phosphorus Magnesium Troponin I 0.883 H* Albumin Procalcitonin Urine Legionella Ag Cancelled 01/06/21 01/06/21 01/07/21 19:22 19:22 03:22 WBC RBC Hgb POC Hgb Hct POC Hct MCV MCH MCHC RDW Std Deviation RDW Coeff of [place]elaria Plt Count MPV Immature Gran % (Auto) Neut % (Auto) Lymph % (Auto) [place] % (Auto) Eos % (Auto) Baso % (Auto) Neut # (Auto) Lymph # (Auto) [place] # (Auto) Eos # (Auto) Baso # (Auto) Immature Gran # (Auto) Sample Site R Radial POC pH 7.46 H POC pCO2 49 H POC pO2 67 L POC HCO3 35 H POC Total CO2 36 H POC Base Excess 11.0 H ABG pH (Temp Correct) ABG pCO2 (Temp Corrct POC ABG pO2 at Pt Temp POC ABG O2 Sat 94.0 Enrique Test NA O2 Delivery Device Ventilator POC O2 Rate 14 Minute Ventilation POC FiO2 40 Tidal Volume 450 PEEP 5 POC Sodium Sodium 133 L POC Potassium Potassium 4.0 Chloride 97 L Carbon Dioxide 33 H Anion Gap 4.0 BUN 13 Creatinine 0.57 L Est Cr Clr Drug Dosing 89.1 Est GFR ( Amer) 123.2 Est GFR (Non-Af Amer) 106.3 BUN/Creatinine Ratio 23.4 H Glucose 140 H Calcium 8.6 Phosphorus 1.9 L Magnesium Troponin I 0.794 H* Albumin 2.5 L Procalcitonin Urine Legionella Ag 01/07/21 01/07/21 01/07/21 04:32 04:32 04:32 WBC 10.78 RBC 3.65 L Hgb 12.8 L POC Hgb Hct 37.5 L POC Hct MCV 102.7 H MCH 35.1 H MCHC 34.1 RDW Std Deviation 47.0 H RDW Coeff of Candelaria 12.7 Plt Count 117 L MPV 9.2 Immature Gran % (Auto) 0.2 Neut % (Auto) 90.3 Lymph % (Auto) 4.5 [place] % (Auto) 4.9 Eos % (Auto) 0.0 Baso % (Auto) 0.1 Neut # (Auto) 9.73 H Lymph # (Auto) 0.49 L [place] # (Auto) 0.53 Eos # (Auto) 0.00 Baso # (Auto) 0.01 Immature Gran # (Auto) 0.02 Sample Site POC pH POC pCO2 POC pO2 POC HCO3 POC Total CO2 POC Base Excess ABG pH (Temp Correct) ABG pCO2 (Temp Corrct POC ABG pO2 at Pt Temp POC ABG O2 Sat Enrique Test O2 Delivery Device POC O2 Rate Minute Ventilation POC FiO2 Tidal Volume PEEP POC Sodium Sodium 134 L POC Potassium Potassium 4.4 Chloride 100 Carbon Dioxide 32 Anion Gap 2.0 L BUN 13 Creatinine 0.47 L Est Cr Clr Drug Dosing 115.0 Est GFR ( Amer) 133.3 Est GFR (Non-Af Amer) 115.0 BUN/Creatinine Ratio 28.2 H Glucose 121 H Calcium 8.1 L Phosphorus 3.8 D Magnesium 2.2 Troponin I Albumin Procalcitonin 0.06 Urine Legionella Ag PG Care Time/CCT Total # of Minutes Spent Total Time Spent with Patient: Total time spent is greater than 50% in coordination of care (as documented) at patient's floor/unit and/or counseling patient: Coding Level of Care Code 95450 Subseq Hosp Care Lvl 2 Diagnoses Hyponatremia E87.1
--- NOTE | 2021-01-07 09:50 | XRay Report ---
SINGLE VIEW CHEST CLINICAL HISTORY: Respiratory failure. FINDINGS: An AP, portable, upright chest radiograph is compared to studies dated 01/06/2021 and correl ated with chest CT dated 01/03/2021. The examination is degraded by portable technique and patient rot ation. An endotracheal and enteric tube are unchanged in position. The cardiomediastinal silhouette i s unremarkable noting atherosclerotic calcification of the thoracic aorta. The pulmonary vasculature is noncongested. Emphysema and chronic interstitial thickening is similar to previous. Again seen is patchy airspace consolidation throughout the left mid to lower lung. No large pleural effusion or pne umothorax is seen. The skeletal structures are osteopenic. The bony thorax is grossly intact. IMPRESSION: 1. Stable lines and tubes. 2. Patchy airspace consolidation in the left mid lower lung is unchanged. Radiographic follow-up to r ya is recommended. 3. Advanced emphysema. ACT 112: Negative or not required by law. Electronically signed by: Sean Mendez M.D. 01/07/2021 9:49 AM
[2021-01-07] MEDS: UMECLIDINIUM BROMIDE 62.5MCG/BLISTER 7 PUFFS/INHALER INH SCH (10:10)
--- NOTE | 2021-01-07 10:23 | Critical Care Progress Note ---
Date of Service January 07, 2021 Assessment & Plan (1) COPD exacerbation: Plan: 65-year-old male with a history of oxygen dependent COPD, lung nodule, hypertension, alcoholism and coronary artery disease presenting to the hospital due to COPD exacerbation. Neurologic: No significant issues at present. Currently on low-dose of the fentanyl infusion to help with anxiety and discomfort given his intubation status. Pulmonary: Currently intubated due to hypoxia and hypercapnia. Tolerating pressure support trials well. Continue IV Solu-Medrol. Continue ceftriaxone and azithromycin. 9 x 7 mm lung nodule in the CT chest in 6 months for follow-up. He has severe emphysema noted on his CT scan. No prior PFTs available for review. Cardiovascular: Continue metoprolol 12.5 mg twice daily. He had episodes of severe hypotension yesterday. We will consider restarting lisinopril if blood pressure continues to be elevated. Gastrointestinal: We will start tube feeds today. Renal: No significant issues. Hyponatremia resolved. Infectious disease: Continue azithromycin and ceftriaxone for 7 days. Sputum cultures pending. Hematologic: No significant issues. Endocrine: Glucose management per ICU protocol. TSH checked 01/04/2021 within normal limits. VTE prophylaxis: Lovenox CODE STATUS: Full code. Prognosis poor. Palliative care is following along with us. Family at bedside: None available at bedside. They were extensively updated yes terday. CRITICAL CARE TIME - I have personally spent 35 minutes of critical care time in the direct management of this patient. This is a life/limb threatening event. This includes time spent evaluating patient, direct bedside care, chart review, placing orders, interpretation of diagnostic studies, discussion with consultants, patient, and family members, as well as other required patient management activities. This time is exclusive of all separately billable procedures, and teaching time and separate from and in addition to any other critical care service time. (2) Acute and chronic respiratory failure with hypercapnia: (3) Altered mental state: (4) Hyponatremia: (5) Endotracheally intubated: Admission and Anticipated Discharge Date Admission Date: January 03, 2021 Subjective Patient seen and examined this morning. He is currently intubated. He is on 50 mcg an hour of fentanyl. He is tolerating this well. He is off vasopressor support. He is alert and awake. He denies any complaint at present. No significant overnight events. Review of Systems Review of Systems: ROS limited due to the patient's intubation status Physical Exam Physical Exam: Constitutional: Patient is currently intubated. Appears comfortable. Alert and awake. Eyes: Pupils are equal round and reactive to light. Conjunctivae are normal. Anicteric sclera. Ears nose, mouth and throat: Endotracheal tube is in place. Neck: Trachea is midline. Visual inspection is normal. Respiratory: Prolonged phase of exhalation. No significant wheezing. Cardiovascular: Tachycardia. No murmurs. No edema. Gastrointestinal: Normal bowel sounds, soft, nontender and nondistended. No hepatosplenomegaly noted. Musculoskeletal: No cyanosis. Patient is able to move all extremities. Strength is 5 out of 5 in the upper and lower extremities. Skin: No rashes, warm dry and intact. Neurologic: No obvious focal neurological deficits seen. Psychiatric: Appears mildly anxious. Results & Data Results & Data ([facility] [place]) Vital Signs (Past 12 Hours) Vital Signs Temp Pulse Pulse Resp BP Pulse Ox 01/07/21 09:36 99.5 F 109 H 160/86 H 96 01/07/21 08:36 99.7 F H 99 H 127/76 96 01/07/21 08:00 108 H 01/07/21 07:36 99.7 F H 98 H 128/76 96 01/07/21 07:32 109 H 109 H 14 96 01/07/21 05:36 99.5 F 99 H 137/77 96 01/07/21 04:36 99.5 F 107 H 166/91 H 94 01/07/21 03:36 99.7 F H 105 H 148/83 H 93 01/07/21 03:26 99 H 15 94 01/07/21 02:36 99.9 F H 87 105/64 96 01/07/21 01:36 99.7 F H 87 103/68 96 01/07/21 01:31 89 01/07/21 00:36 99.9 F H 91 H 103/63 96 01/06/21 23:36 100.0 F H 89 106/67 95 01/06/21 22:57 94 H 14 94 01/06/21 22:36 100.4 F H 92 H 131/77 95 Chest x-ray personally reviewed. Patchy infiltrates in the left lower lobe. Coding Level of Care Code Critical Care 1st 30-74 mins Diagnoses COPD exacerbation J44.1 Acute and chronic respiratory failure with hypercapnia J96.22 Altered mental state R41.82 Hyponatremia E87.1 Endotracheally intubated Z97.8 Time Spent (min) 35
[2021-01-07] MEDS ORDERED: PEPTAMEN INTENSE VHP 1.0 CAL 1,000 ML BAG GT SCH (11:15)
[2021-01-07] MEDS: fentaNYL DRIP 1,250 MCG/250 ML BAG IV SCH (12:26)
[2021-01-07] MEDS: TUBE FEEDING WATER FLUSH GT SCH ×3 (12:28→21:01)
[2021-01-07] MEDS ORDERED: METOPROLOL TARTRATE 1 MG/ML VIAL IV STA (13:47)
[2021-01-07] MEDS ORDERED: lisinopril 20 MG TAB PO STA (13:47)
[2021-01-07] MEDS ORDERED: STAT IV Infusion **Titration per Protocol STA (13:48)
--- NOTE | 2021-01-07 13:56 | Palliative Care Progress Note ---
Date of Service January 07, 2021 Assessment & Plan (1) Palliative care encounter: Plan: I talked with Xavi about decision to intubate yesterday. He does not recall the events though he did tell his daughter that he agreed yesterday. He confirms that today. He is understandably anxious for the ET tube to be removed but understands the need to monitor until tomorrow. I also spoke with his daughter, Chasity, on the phone. She received an update this morning. She is relieved that he confirms wish for intubation. She tells me that after he had heart surgery several years ago, he had said that he would not want resuscitation but she felt that this was a different situation. We talked about having a more in depth conversation with Xavi and his family in the next few days to clarify goals moving forward. She is agreeable. (2) COPD exacerbation: (3) CAD (coronary artery disease): (4) Acute and chronic respiratory failure with hypercapnia: Admission and Anticipated Discharge Date Admission Date: January 03, 2021 Subjective Intubated yesterday. Awake and alert today but remains intubated. Does not recall events from yesterday. Denies pain or discomfort. Review of Systems Review of Systems: Unobtainable due to endotracheal tube [place] Symptom Assessment Scale Pain 0/3 Dyspnea 0/3 Anxiety 1/3 Drowsiness 0/3 Palliative Performance Score 30% Physical Exam Constitutional: + ill appearing and + thin Cardiovascular: Rate/Rhythm: regular rate and regular rhythm Gastrointestinal (Abdomen): nontender Neurologic: moves all extremities and awake; not confused Results & Data ([facility]) Vital Signs (Past 12 Hours) Vital Signs Temp Pulse Pulse Resp BP Pulse Ox 01/07/21 11:04 109 H 109 H 16 96 01/07/21 10:36 99.1 F 115 H 167/84 H 96 01/07/21 09:36 99.5 F 109 H 160/86 H 96 01/07/21 08:36 99.7 F H 99 H 127/76 96 01/07/21 08:00 108 H 01/07/21 07:36 99.7 F H 98 H 128/76 96 01/07/21 07:32 109 H 109 H 14 96 01/07/21 05:36 99.5 F 99 H 137/77 96 01/07/21 04:36 99.5 F 107 H 166/91 H 94 01/07/21 03:36 99.7 F H 105 H 148/83 H 93 01/07/21 03:26 99 H 15 94 01/07/21 02:36 99.9 F H 87 105/64 96 PG Care Time/CCT Total # of Minutes Spent Total Time Spent with Patient: Total time spent is greater than 50% in coordination of care (as documented) at patient's floor/unit and/or counseling patient: Coding Level of Care Code 47180 Subseq Hosp Care Lvl 2 Diagnoses Palliative care encounter Z51.5 COPD exacerbation J44.1 CAD (coronary artery disease) I25.10 Acute and chronic respiratory failure with hypercapnia J96.22
[2021-01-07] MEDS: DEXMEDETOMIDINE HCL 200 MCG in SODIUM CHLORIDE 0.9% 48 ML IV SCH (15:16)
[2021-01-07] MEDS ORDERED: METOPROLOL TARTRATE 25 MG TAB PO ONE (17:00)
[2021-01-07] MEDS ORDERED: METOPROLOL TARTRATE 25 MG TAB PO SCH ×2 (21:00)
--- NOTE | 2021-01-07 22:17 | Hospitalist Progress Note ---
Date of Service January 07, 2021 Assessment & Plan (1) Hypoxia: Plan: due to COPD exacerbation progressed to need for intubation on 01/[address] Leigh tolerating pressure support trials might be ready for extubation tomorrow (2) COPD exacerbation: Plan: COPD Exacerbation - Solu Medrol 40 q12, Rocephin, Zithromax for 5-7 days now intubated - CTA w/ evidence of bronchitis, chronic pulm nodules that will need follow up (3) Acute and chronic respiratory failure with hypercapnia: Plan: CO2 still elevated despite BIPAP, likely air trapping emergent intubation 01/06 check ABG in the AM (4) Hypercapnia: Plan: see above (5) Hyponatremia: Plan: Hyponatremia - likely secondary to progressive diarrhea and dehydration & daily beer intake with 1 TV dinner daily for nutrition - - VBG and BMP indicative of nongap metabolic acidosis - BMP Q4H, goal sodium increase of <8 meq/24 h - urine Na 498, sosm 268, urine na 38. Continue volume repletion and remeasure - Na coming up to 134 nephrology following (6) Hypertension: Plan: - Continue SARKIS, MTP as noted in CAD (7) Hypercholesterolemia: Plan: - Continue rosuvastatin (8) CAD (coronary artery disease): Plan: - Continue lisinopril - Continue MTP 200mg BID - Continue Aspirin - Continue rosuvastatin (9) COPD (chronic obstructive pulmonary disease): Plan: - See COPD exacerbation (10) Elevated d-dimer: Plan: - likely due to viral infection causing COPD ex, - CTA Chest negative for PE, no sx or swelling indicative of DVT, no hx clotting (11) Lung nodule: Plan: Chest CTA revealed a 9X 7 mm left apical nodule suggestive of pleuralparenchymal scarring however, is new from 2007. A 6-month follow-up chest CT is recommended and referred to lung nodule program (12) Daily consumption of alcohol: Plan: - 3 to 4 beers daily, no history of withdrawal/DTs - Last drink evening 01/02 - Pt reports increased anxiety, denies tremors/hallucinations/sweats/chi lls/palpitations. - active withdrawal protocol (13) Anxiety: Plan: - patient has seen a therapist and psychiatry as outpatient who is interested in seeing again Psych consulted, appreciate recommendations Continue lorazepam every 4 hours as needed, note patient also on KYLE S Anticipate anxiety may be worse in the setting of steroid treatment Patient previously on Lexapro, but with severe fatigue. SSRI not appropriate at this time given hyponatremia (14) Smoking: Plan: May use patch if cravings, deferred at this time due to increased anxiety and tremulousness Plan: remain in ICU Admission and Anticipated Discharge Date Admission Date: January 03, 2021 Subjective patient tolerating pressure support trials he is on Fentanyl for comfort, working reasonably well he is anxious for tube to come out ICU managing appreciate palliative care note, plan for family meeting eventually to discuss goals of care moving forward reviewed labs and chart Review of Systems Review of Systems: All systems reviewed & are unremarkable except as noted in Subjective Constitutional: + fatigue and + weakness; no fever, no chills and no sweats Respiratory: + dyspnea Cardiovascular: no chest pain Psychiatric: + anxiety (wants tube out) Physical Exam Constitutional: + thin, + altered mental status and + mechanically ventilated; no acute distress Neck: trachea midline, no thyromegaly Respiratory: normal respiratory effort (intubated and ventilated) Auscultation: + diminished lung sounds; no crackles, no rales, no rhonchi and no wheezes Cardiovascular: RRR, no murmur, no edema Gastrointestinal (Abdomen): normal bowel sounds, soft, nontender, no hepatosplenomegaly Musculoskeletal: Head/Neck/Chest: normocephalic, head atraumatic and neck supple Extremities: extremities normal to inspection and + abnormal strength; no cyanosis, no clubbing and no petechiae Skin: no rashes, warm and dry Neurologic: CN's II-XI intact bilaterally, moves all extremities and + obtunded; no focal motor deficits Results & Data Results & Data ([facility]) Vital Signs (Past 12 Hours) Vital Signs Temp Pulse Pulse Resp BP Pulse Ox 01/07/21 21:24 37.9 C H 102 H 148/89 H 96 01/07/21 20:36 37.7 C H 93 H 160/84 H 96 01/07/21 19:36 37.7 C H 96 H 150/80 H 97 01/07/21 19:00 93 H 13 96 01/07/21 18:36 37.7 C H 88 14 146/81 H 97 01/07/21 17:36 37.7 C H 118 H 179/97 H 96 01/07/21 16:36 37.6 C H 114 H 172/96 H 96 01/07/21 15:39 106 H 106 H 19 96 01/07/21 15:36 37.5 C 103 H 168/93 H 96 01/07/21 14:36 37.5 C 96 H 172/94 H 96 01/07/21 14:28 112 H 172/90 H 01/07/21 13:36 37.5 C 108 H 172/90 H 95 01/07/21 12:36 37.5 C 110 H 153/92 H 96 01/07/21 11:36 37.4 C 112 H 169/92 H 95 01/07/21 11:04 109 H 109 H 16 96 01/07/21 10:36 37.3 C 115 H 167/84 H 96 Laboratory Results Laboratory Results - last 24 hr 01/03/21 01/07/21 01/07/21 16:54 03:22 04:32 WBC 10.78 RBC 3.65 L Hgb 12.8 L Hct 37.5 L MCV 102.7 H MCH 35.1 H MCHC 34.1 RDW Std Deviation 47.0 H RDW Coeff of [place] 12.7 Plt Count 117 L MPV 9.2 Immature Gran % (Auto) 0.2 Neut % (Auto) 90.3 Lymph % (Auto) 4.5 [place] % (Auto) 4.9 Eos % (Auto) 0.0 Baso % (Auto) 0.1 Neut # (Auto) 9.73 H Lymph # (Auto) 0.49 L [place] # (Auto) 0.53 Eos # (Auto) 0.00 Baso # (Auto) 0.01 Immature Gran # (Auto) 0.02 Sample Site R Radial POC pH 7.46 H POC pCO2 49 H POC pO2 67 L POC HCO3 35 H POC Total CO2 36 H POC Base Excess 11.0 H POC ABG O2 Sat 94.0 Enrique Test NA O2 Delivery Device Ventilator POC O2 Rate 14 POC FiO2 40 Tidal Volume 450 PEEP 5 Sodium Potassium Chloride Carbon Dioxide Anion Gap BUN Creatinine Est Cr Clr Drug Dosing Est GFR ( Amer) Est GFR (Non-Af Amer) BUN/Creatinine Ratio Glucose Calcium Phosphorus Magnesium Procalcitonin Urine Legionella Ag SEE NOTE 01/07/21 01/07/21 04:32 04:32 WBC RBC Hgb Hct MCV MCH MCHC RDW Std Deviation RDW Coeff of [place] Plt Count MPV Immature Gran % (Auto) Neut % (Auto) Lymph % (Auto) [place] % (Auto) Eos % (Auto) Baso % (Auto) Neut # (Auto) Lymph # (Auto) [place] # (Auto) Eos # (Auto) Baso # (Auto) Immature Gran # (Auto) Sample Site POC pH POC pCO2 POC pO2 POC HCO3 POC Total CO2 POC Base Excess POC ABG O2 Sat Enrique Test O2 Delivery Device POC O2 Rate POC FiO2 Tidal Volume PEEP Sodium 134 L Potassium 4.4 Chloride 100 Carbon Dioxide 32 Anion Gap 2.0 L BUN 13 Creatinine 0.47 L Est Cr Clr Drug Dosing 115.0 Est GFR ( Amer) 133.3 Est GFR (Non-Af Amer) 115.0 BUN/Creatinine Ratio 28.2 H Glucose 121 H Calcium 8.1 L Phosphorus 3.8 D Magnesium 2.2 Procalcitonin 0.06 Urine Legionella Ag Medications Administered Current Inpatient Medications Acetaminophen (Acetaminophen 325 Mg Tab) 650 mg PO Q4H PRN PRN Reason: pain/fever Stop: 02/02/21 22:07 Last Admin: 01/04/21 11:28 Dose: 650 mg Documented by: Al Hydrox/Mg Hydrox/Simethicone (Aluminum/Magnesium Susp 30 Ml Udc) 30 ml PO Q6H PRN PRN Reason: Dyspepsia Stop: 02/02/21 22:07 Albuterol (Albut/Ipratrop 3mg/0.5mg Neb 3 Ml Vial) 3 ml NEB Q4R [facility] Stop: 02/02/21 22:59 Last Admin: 01/07/21 19:02 Dose: 3 ml Documented by: Albuterol (Albut/Ipratrop 3mg/0.5mg Neb 3 Ml Vial) 3 ml NEB Q2H PRN PRN Reason: sob Stop: 02/02/21 22:07 Last Admin: 01/05/21 05:56 Dose: 3 ml Documented by: Aspirin (Aspirin 81 Mg Chew) 81 mg PO QAM [facility] Stop: 02/06/21 08:59 Last Admin: 01/07/21 08:54 Dose: 81 mg Documented by: Calcium Carbonate (Calcium Carbonate 500 Mg Chewable Tab) 500 mg PO Q4H PRN PRN Reason: Indigestion Stop: 02/03/21 08:14 Last Admin: 01/04/21 08:27 Dose: 500 mg Documented by: Ezetimibe (Ezetimibe 10 Mg Tablet) 10 mg PO DAILY [facility] Stop: 02/03/21 08:59 Last Admin: 01/07/21 08:38 Dose: 10 mg Documented by: Enoxaparin Sodium (Enoxaparin Inj 40 Mg/0.4 Ml Syr) 40 mg SQ QAM [facility] Stop: 02/04/21 08:59 Last Admin: 01/07/21 08:39 Dose: 40 mg Documented by: Folic Acid (Folic Acid 1 Mg Tab) 1 mg PO DAILY [facility] Stop: 02/03/21 08:59 Last Admin: 01/07/21 08:38 Dose: 1 mg Documented by: Azithromycin 250 mg/ Dextrose 252.5 mls @ 125 mls/hr IV Q24H [facility] Stop: 01/10/21 08:59 Last Infusion: 01/07/21 10:59 Dose: Infused Documented by: Ceftriaxone Sodium 1,000 mg/ (Dextrose) 50 mls @ 100 mls/hr IV Q24H [facility]; Protocol Stop: 01/12/21 08:59 Last Infusion: 01/07/21 09:20 Dose: Infused Documented by: Methylprednisolone 40 mg/ (Syringe) 0.64 mls @ 1.5 mls/min IV BID [facility] Stop: 02/05/21 20:59 Last Admin: 01/07/21 21:00 Dose: 1.5 mls/min Documented by: Dexmedetomidine HCl 200 mcg/ (Sodium Chloride) 50 mls @ 2.665 mls/hr IV .[id number] [facility]; Protocol Stop: 01/11/21 13:59 Last Titration: 01/07/21 19:10 Dose: 0.2 mcg/kg/hr, 2.7 mls/hr Documented by: Lisinopril (Lisinopril 20 Mg Tab) 20 mg PO QAM [facility] Stop: 02/07/21 08:59 Metoprolol Tartrate (Metoprolol Tartrate 25 Mg Tab) 25 mg PO BID [facility] Stop: 02/06/21 20:59 Last Admin: 01/07/21 21:00 Dose: 25 mg Documented by: Miscellaneous (Remove Nicoderm Patch) 1 ea N/A DAILY@0859 PRN PRN Reason: IF PATCH APPLIED Stop: 02/03/21 08:58 Nicotine (Nicotine 7 Mg/24 Hr Tdsy) 7 mg TD QAM PRN PRN Reason: agitation Stop: 02/02/21 22:07 Last Admin: 01/04/21 10:38 Dose: 7 mg Documented by: Nutritional Formula (Peptamen Intense Vhp 1.0 [place] 1,000 Ml Bag) 1,000 ml GT UD [facility]; Protocol Stop: 02/06/21 11:14 Last Admin: 01/07/21 12:04 Dose: 1,000 ml Documented by: Ondansetron HCl (Ondansetron Inj 2 Mg/Ml 2 Ml Vial) 4 mg IV Q6H PRN PRN Reason: Nausea Stop: 02/02/21 22:07 Polyethylene Glycol (Polyethylene (Miralax) 17 Gm Pack) 17 gm PO DAILY PRN PRN Reason: Constipation Stop: 02/02/21 22:07 Propofol (Propofol Bolus From Bag) 20 mg IV Q5M PRN PRN Reason: Sedation Stop: 01/09/21 15:05 Rosuvastatin Calcium (Rosuvastatin Calcium 20 Mg Tab) 20 mg PO DAILY [facility] Stop: 02/03/21 08:59 Last Admin: 01/07/21 08:39 Dose: 20 mg Documented by: Sterile Water (Tube Feeding Water Flush) 30 ml GT Q4H [facility] Stop: 02/06/21 11:14 Last Admin: 01/07/21 21:01 Dose: 30 ml Documented by: Thiamine HCl (Thiamine Hcl 100 Mg Tab) 100 mg PO QAM [place] Stop: 02/03/21 08:59 Last Admin: 01/07/21 08:39 Dose: 100 mg Documented by: Umeclidinium [place] (Umeclidinium [place] 62.5mcg/Blister 7 Puffs/Inhaler) 1 puffs INH DAILY [facility] Stop: 02/03/21 08:59 Last Admin: 01/07/21 10:10 Dose: Not Given Documented by: PG Care Time/CCT Total # of Minutes Spent Total Time Spent with Patient: Total time spent is greater than 50% in coordination of care (as documented) at patient's floor/unit and/or counseling patient: Coding Level of Care Code 21448 Subseq Hosp Care Lvl 2 Diagnoses Hypoxia R09.02 COPD exacerbation J44.1 Acute and chronic respiratory failure with hypercapnia J96.22 Hypercapnia R06.89 Hyponatremia E87.1 Hypertension I10 Hypercholesterolemia E78.00 CAD (coronary artery disease) I25.10 COPD (chronic obstructive pulmonary disease) J44.9 COPD type: unspecified COPD Elevated d-dimer R79.89 Lung nodule R91.1 Daily consumption of alcohol Z78.9 Anxiety F41.9 Smoking F17.200 (1) COPD (chronic obstructive pulmonary disease) COPD type: unspecified COPD Qualified Code(s): J44.9 - Chronic obstructive pulmonary disease, unspecified
[2021-01-08] MEDS: TUBE FEEDING WATER FLUSH GT SCH ×4 (00:22→12:16)
[2021-01-08] MEDS: ALBUT/IPRATROP 3MG/0.5MG NEB 3 ML VIAL NEB SCH ×6 (02:48→23:07)
[2021-01-08 05:02] LABS: Basophils # (auto) 0.01 K/uL (0-0.2); Basophils % (auto) 0.1 %; Hematocrit (blood only) 35.1 % (42-52); Hemoglobin 11.6 g/dL (14.0-18.0); Immature Granulocytes # (auto) 0.01 K/uL (0.00-0.02); Immature Granulocytes % (auto) 0.1 %; Lymphocytes # (auto) 0.41 K/uL (1.2-3.4); Lymphocytes % (auto) 5.4 %; Mean Corpuscular Hemoglobin 34.2 pg (25-34); Mean Corpuscular Volume 103.5 fL (80-100); Mean Platelet Volume 8.8 fL (7.4-10.4); Monocytes # (auto) 0.43 K/uL (0.11-0.59); Monocytes % (auto) 5.7 %; Neutrophils % (auto) 88.7 %; Platelet Count 113 K/uL (130-400); RDW Coefficient of Variation 12.5 % (11.5-14.5); RDW Standard Deviation 47.4 fL (36.4-46.3); Red Blood Count 3.39 M/uL (4.7-6.1); White Blood Count 7.56 K/uL (4.8-10.8)
[2021-01-08 05:35] LABS: BUN Creatinine Ratio 38.4 (10-20); Calcium 8.2 mg/dl (8.5-10.1); Creatinine Clr Calc Pharmacy 142.2 ml/min; Est GFR (African American) 145.5 ml/min; Est GFR (Non-African American) 125.5 ml/min; Magnesium 2.4 mg/dl (1.8-2.4); Potassium 3.5 mmol/L (3.5-5.1)
[2021-01-08] MEDS: DEXMEDETOMIDINE HCL 200 MCG in SODIUM CHLORIDE 0.9% 48 ML IV SCH ×3 (06:09→21:43)
[2021-01-08] MEDS ORDERED: POTASSIUM PHOS 3 MMOL/1 ML INFUSION IV STA (06:12)
[2021-01-08] MEDS ORDERED: POTASSIUM PHOSPHATE 21 MMOL in SODIUM CHLORIDE 0.9% 500 ML IV ONE (06:30)
[2021-01-08] MEDS ORDERED: FUROSEMIDE 20 MG in SYRINGE 0 ML IV ONE (07:45)
[2021-01-08] MEDS: METOPROLOL TARTRATE 50 MG TAB PO SCH ×2 (07:46→20:01)
[2021-01-08] MEDS: EZETIMIBE 10 MG TABLET PO SCH (07:47)
[2021-01-08] MEDS: FOLIC ACID 1 MG TAB PO SCH (07:47)
[2021-01-08] MEDS: ASPIRIN 81 MG CHEW PO SCH (07:47)
[2021-01-08] MEDS: ROSUVASTATIN CALCIUM 20 MG TAB PO SCH (07:48)
[2021-01-08] MEDS: lisinopril 20 MG TAB PO SCH (07:48)
[2021-01-08] MEDS: THIAMINE HCL 100 MG TAB PO SCH (07:48)
--- NOTE | 2021-01-08 08:18 | Critical Care Progress Note ---
Date of Service January 08, 2021 Assessment & Plan (1) COPD exacerbation: Plan: 65-year-old male with a history of oxygen dependent COPD, lung nodule, hypertension, alcoholism and coronary artery disease presenting to the hospital due to COPD exacerbation. Neurologic: No significant issues at present. Currently on Precedex. Will discontinue once she is extubated. Pulmonary: We will proceed with extubation. Extubate to BiPAP. Continue IV Solu-Medrol. Continue ceftriaxone and azithromycin. 9 x 7 mm lung nodule in the CT chest in 6 months for follow-up. He has severe emphysema noted on his CT scan. No prior PFTs available for review. Cardiovascular: Metoprolol increased to 50 mg twice daily. Continue lisinopril. We will give a dose of 20 mg IV Lasix. Gastrointestinal: We will perform a swallow evaluation after extubation. Renal: No significant issues. 20 mg of IV Lasix will be given. Replacing phosphate. Infectious disease: Continue azithromycin and ceftriaxone for 7 days total. Sputum culture negative to date. Hematologic: No significant issues. Endocrine: Glucose management per ICU protocol. TSH checked 01/04/2021 within normal limits. VTE prophylaxis: Lovenox CODE STATUS: Full code. Prognosis poor. Palliative care is following along with us. (2) Acute and chronic respiratory failure with hypercapnia: (3) Altered mental state: (4) Hyponatremia: (5) Endotracheally intubated: Admission and Anticipated Discharge Date Admission Date: January 03, 2021 Subjective Patient seen and examined this morning. He is alert and awake. He is intubated. He is currently on low doses of Precedex. He is following commands. He is tolerating spontaneous breathing trial well. Review of Systems Review of Systems: Does not appear to be in any distress. Difficult to obtain as the patient is currently intubated. Physical Exam Physical Exam: Constitutional: Patient is currently intubated. Appears comfortable. Alert and awake. Eyes: Pupils are equal round and reactive to light. Conjunctivae are normal. Anicteric sclera. Ears nose, mouth and throat: Endotracheal tube is in place. Neck: Trachea is midline. Visual inspection is normal. Respiratory: Prolonged phase of exhalation. No significant wheezing. Cardiovascular: Tachycardia. No murmurs. No edema. Gastrointestinal: Normal bowel sounds, soft, nontender and nondistended. No hepatosplenomegaly noted. Musculoskeletal: No cyanosis. Patient is able to move all extremities. Strength is 5 out of 5 in the upper and lower extremities. Skin: No rashes, warm dry and intact. Neurologic: No obvious focal neurological deficits seen. Psychiatric: Appears mildly anxious. Results & Data Results & Data ([facility]) Vital Signs (Past 12 Hours) Vital Signs Temp Pulse Pulse Resp BP Pulse Ox 01/08/21 08:03 111 H 111 H 26 H 93 01/08/21 05:36 99.3 F 97 H 135/77 94 01/08/21 04:36 99.3 F 103 H 138/80 94 01/08/21 03:36 99.1 F 113 H 145/77 H 93 01/08/21 02:52 105 H 23 96 01/08/21 02:48 95 H 14 94 01/08/21 02:36 99.3 F 91 H 146/83 H 94 01/08/21 01:36 99.3 F 96 H 137/82 93 01/08/21 00:36 99.1 F 94 H 137/78 92 01/08/21 00:03 102 H 01/07/21 23:36 99.3 F 102 H 132/96 93 01/07/21 23:15 99 H 19 97 01/07/21 23:10 96 H 19 95 01/07/21 22:36 99.9 F H 94 H 152/83 H 96 01/07/21 21:24 100.2 F H 102 H 148/89 H 96 01/07/21 20:36 99.9 F H 93 H 160/84 H 96 Vital signs, labs and imaging personally reviewed Coding Level of Care Code 16415 Subseq Hosp Care Lvl 3 Diagnoses COPD exacerbation J44.1 Acute and chronic respiratory failure with hypercapnia J96.22 Altered mental state R41.82 Hyponatremia E87.1 Endotracheally intubated Z97.8
[2021-01-08] MEDS: AZITHROMYCIN 250 MG in DEXTROSE 5% 250 ML IV SCH (08:19)
[2021-01-08] MEDS: cefTRIAXone SODIUM 1,000 MG in DEXTROSE 5% 50 ML IV SCH (08:20)
[2021-01-08] MEDS: ENOXAPARIN INJ 40 MG/0.4 ML SYR SQ SCH (08:20)
[2021-01-08] MEDS: methylPREDNISolone 40 MG in SYRINGE 0 ML IV SCH ×2 (08:20→20:01)
--- NOTE | 2021-01-08 08:33 | XRay Report ---
XR chest 1V portable HISTORY: Respiratory failure. Follow-up. COMPARISON: Chest 01/07/2021. FINDINGS: No pneumothorax. No pleural effusion is. The lungs are hyperexpanded with apical predominan t emphysematous changes. Endotracheal tube and nasogastric tube appear in good position. These are un changed compared to the prior study. Mild interstitial thickening within the left lower lobe remains unchanged. No evidence for pulmonary edema. IMPRESSION: 1. Satisfactory support line placement. 2. No change in the left lower lobe interstitial thickening. This may be chronic or represent an inte rstitial pneumonitis. ACT 112: Negative or not required by law. Electronically signed by: Jaylan Devi M.D. 01/08/2021 8:32 AM
[2021-01-08] MEDS ORDERED: LABETALOL HCL IV 5 MG/ML 20ML IV STA (09:43)
[2021-01-08] MEDS ORDERED: LORazepam 0.5 MG/1 ML VIAL IV ONE (10:00)
[2021-01-08] MEDS: UMECLIDINIUM BROMIDE 62.5MCG/BLISTER 7 PUFFS/INHALER INH SCH (10:14)
[2021-01-08] MEDS: PANTOprazole 40 MG in SYRINGE 0 ML IV SCH ×2 (10:29→20:01)
[2021-01-08 12:41] LABS: Hemoglobin 13.9 g/dL (14.0-18.0); Mean Corpuscular Hemoglobin 35.4 pg (25-34); Mean Corpuscular Hgb Conc 33.9 g/dL (32-36); Mean Corpuscular Volume 104.3 fL (80-100); RDW Coefficient of Variation 12.4 % (11.5-14.5); Red Blood Count 3.93 M/uL (4.7-6.1); White Blood Count 16.08 K/uL (4.8-10.8)
[2021-01-08 12:52] LABS: Mean Platelet Volume 9.3 fL (7.4-10.4); Platelet Count 171 K/uL (130-400)
[2021-01-08 12:54] LABS: Basophils # (auto) 0.01 K/uL (0-0.2); Basophils % (auto) 0.1 %; Immature Granulocytes # (auto) 0.04 K/uL (0.00-0.02); Immature Granulocytes % (auto) 0.2 %; Lymphocytes # (auto) 1.13 K/uL (1.2-3.4); Monocytes # (auto) 0.16 K/uL (0.11-0.59); Neutrophils # (auto) 14.74 K/uL (1.4-6.5); Neutrophils % (auto) 91.7 %; Platelet Estimate Normal (Normal)
[2021-01-08] MEDS ORDERED: STAT IV Infusion **Titration per Protocol STA (13:45)
[2021-01-08] MEDS ORDERED: niCARdipine 25 MG in SODIUM CHLORIDE 0.9% 240 ML IV SCH (13:55)
[2021-01-08] MEDS ORDERED: Nursing to Pharmacy Communication SCH (15:30)
--- NOTE | 2021-01-08 22:23 | Hospitalist Progress Note ---
Date of Service January 08, 2021 Assessment & Plan (1) Hypoxia: Plan: due to COPD exacerbation progressed to need for intubation on 01/[address] Leigh able to be extubated today, straight to BIPAP oxygenating well on BIPAP with FiO2 only 30% main issue is his anxiety, delirium, labile blood pressure this makes compliant with BIPAP difficult, prone to tachypnea when he is anxious (2) COPD exacerbation: Plan: COPD Exacerbation - Solu Medrol 40 q12, Rocephin, Zithromax for 5-7 days intubated 01/06 extubated 01/08 - CTA w/ evidence of bronchitis, chronic pulm nodules that will need follow up (3) Acute and chronic respiratory failure with hypercapnia: Plan: CO2 down on most recent ABG extubated, placed on BIPAP today (4) Hypercapnia: Plan: see above (5) Hyponatremia: Plan: Hyponatremia - likely secondary to progressive diarrhea and dehydration & daily beer intake with 1 TV dinner daily for nutrition - - VBG and BMP indicative of nongap metabolic acidosis - Na up to normal (6) Hypertension: Plan: - Continue SARKIS, MTP as noted in CAD (7) Hypercholesterolemia: Plan: - Continue rosuvastatin (8) CAD (coronary artery disease): Plan: - Continue lisinopril - Continue MTP 200mg BID - Continue Aspirin - Continue rosuvastatin (9) COPD (chronic obstructive pulmonary disease): Plan: - See COPD exacerbation (10) Elevated d-dimer: Plan: - likely due to viral infection causing COPD ex, - CTA Chest negative for PE, no sx or swelling indicative of DVT, no hx clotting (11) Lung nodule: Plan: Chest CTA revealed a 9X 7 mm left apical nodule suggestive of pleuralpar enchymal scarring however, is new from 2007. A 6-month follow-up chest CT is recommended and referred to lung nodule program (12) Daily consumption of alcohol: Plan: - 3 to 4 beers daily, no history of withdrawal/DTs - Last drink evening 01/02 suspect a big component of his anxiety, delirium, labile blood pressure is alcohol withdrawal - active withdrawal protocol (13) Anxiety: Plan: - patient has seen a therapist and psychiatry as outpatient who is interested in seeing again Psych consulted, appreciate recommendations Continue lorazepam every 4 hours as needed, note patient also on KYLE S Anticipate anxiety may be worse in the setting of steroid treatment Patient previously on Lexapro, but with severe fatigue. SSRI not appropriate at this time given hyponatremia per daughter, he was on Valium for a long time, transitioned to Klonopin that he did not like as much (14) Smoking: Plan: May use patch if cravings, deferred at this time due to increased anxiety and tremulousness Plan: remain in ICU Admission and Anticipated Discharge Date Admission Date: January 03, 2021 Subjective patient extubated this morning after doing well with pressure support, was on Precedex Precedex weaned off, he started to get delirious, agitated, extremely anxious given dose of Ativan blood pressure extremely labile, like he has autonomous dysfunction, up to 200's systolic requiring nicardipine then it will drop down, hypotensive I met with his daughter at the bedside, he was calm and stable on BIPAP at the time she explained that she and her sisters are having a difficult time coming to terms with how sick he is at the moment he has been independent, had just bought a new condo, he has a belt conveyor drier, he goes fishing but she also admits that he has an issue with alcohol, drinks at least 6 beers a day, smokes cigarettes, at one point he was up to 3 packs per day we discussed that the damage he has done to his lungs and liver makes him older than he actually is, and he is very frail he has severe COPD/emphysema on imaging, no PFT to review discussed that his anxiety and delirium make his breathing more difficult to treat she understands, she brought up the idea of a transfer to another facility or perhaps calling for a consult from another hospital I explained that there is nothing that another facility could offer, right now we need to treat his delirium, keep him calm, give his lungs time to come around she understood she and her siblings would like to meet with Dr Braun again tomorrow, will arrange for that to happen I updated Dr. Leigh about my discussion with the patient's daughter Review of Systems Review of Systems: Unobtainable due to cognitive status Physical Exam Constitutional: + thin and + altered mental status; no acute distress Neck: trachea midline, no thyromegaly Respiratory: normal respiratory effort (on BIPAP) Auscultation: + diminished lung sounds; no crackles, no rales, no rhonchi and no wheezes Cardiovascular: RRR, no murmur, no edema Gastrointestinal (Abdomen): normal bowel sounds, soft, nontender, no hepatosplenomegaly Musculoskeletal: Head/Neck/Chest: normocephalic, head atraumatic and neck supple Extremities: extremities normal to inspection and + abnormal strength; no cyanosis, no clubbing and no petechiae Skin: no rashes, warm and dry Neurologic: CN's II-XI intact bilaterally, moves all extremities and + obtunded; no focal motor deficits Psychiatric: Affect: + anxious affect Results & Data Results & Data ([facility]) Vital Signs (Past 12 Hours) Vital Signs Temp Pulse Pulse Pulse Resp BP Pulse Ox 01/08/21 21:36 88 15 138/77 96 01/08/21 20:36 78 14 119/77 96 01/08/21 20:21 37.1 C 79 16 132/69 95 01/08/21 20:20 83 21 96 01/08/21 20:00 01/08/21 19:36 106 H 25 H 156/91 H 95 01/08/21 19:18 101 H 101 H 28 H 95 01/08/21 18:36 84 136/74 98 01/08/21 17:36 81 130/77 97 01/08/21 16:36 82 123/71 98 01/08/21 15:47 87 108/60 97 01/08/21 15:36 86 13 95/56 L 97 01/08/21 15:09 93 H 78/55 L 96 01/08/21 14:43 119 H 40 H 92 01/08/21 14:40 116 H 40 H 92 01/08/21 14:36 117 H 118/79 97 01/08/21 13:36 122 H 184/112 H 95 01/08/21 12:36 121 H 159/103 H 94 01/08/21 12:19 109 H 26 H 97 01/08/21 12:14 123 H 198/99 H 91 01/08/21 11:51 109 H 22 96 01/08/21 11:36 116 H 200/128 H 99 01/08/21 10:37 37.3 C 100 H 156/118 H 92 Pulse Ox 01/08/21 21:36 01/08/21 20:36 01/08/21 20:21 01/08/21 20:20 01/08/21 20:00 96 01/08/21 19:36 01/08/21 19:18 01/08/21 18:36 01/08/21 17:36 01/08/21 16:36 01/08/21 15:47 01/08/21 15:36 01/08/21 15:09 01/08/21 14:43 01/08/21 14:40 01/08/21 14:36 01/08/21 13:36 01/08/21 12:36 01/08/21 12:19 01/08/21 12:14 01/08/21 11:51 01/08/21 11:36 01/08/21 10:37 Laboratory Results Laboratory Results - last 24 hr 01/08/21 01/08/21 01/08/21 04:38 04:38 09:45 WBC 7.56 RBC 3.39 L Hgb 11.6 L Hct 35.1 L MCV 103.5 H MCH 34.2 H MCHC 33.0 RDW Std Deviation 47.4 H RDW Coeff of [place] 12.5 Plt Count 113 L MPV 8.8 Immature Gran % (Auto) 0.1 Neut % (Auto) 88.7 Lymph % (Auto) 5.4 [place] % (Auto) 5.7 Eos % (Auto) 0.0 Baso % (Auto) 0.1 Neut # (Auto) 6.70 H Lymph # (Auto) 0.41 L [place] # (Auto) 0.43 Eos # (Auto) 0.00 Baso # (Auto) 0.01 Immature Gran # (Auto) 0.01 Platelet Estimate Sodium 135 L Potassium 3.5 D Chloride 99 Carbon Dioxide 33 H Anion Gap 3.0 BUN 15 Creatinine 0.38 L Est Cr Clr Drug Dosing 142.2 Est GFR ( Amer) 145.5 Est GFR (Non-Af Amer) 125.5 BUN/Creatinine Ratio 38.4 H Glucose 145 H Calcium 8.2 L Phosphorus 2.0 L D Magnesium 2.4 Stool Occult Bld Scrn Positive A 01/08/21 12:16 WBC 16.08 H RBC 3.93 L Hgb 13.9 L Hct 41.0 L MCV 104.3 H MCH 35.4 H MCHC 33.9 RDW Std Deviation 48.0 H RDW Coeff of [place] 12.4 Plt Count 171 D MPV 9.3 Immature Gran % (Auto) 0.2 Neut % (Auto) 91.7 Lymph % (Auto) 7.0 [place] % (Auto) 1.0 Eos % (Auto) 0.0 Baso % (Auto) 0.1 Neut # (Auto) 14.74 H Lymph # (Auto) 1.13 L [place] # (Auto) 0.16 Eos # (Auto) 0.00 Baso # (Auto) 0.01 Immature Gran # (Auto) 0.04 H Platelet Estimate Normal Sodium Potassium Chloride Carbon Dioxide Anion Gap BUN Creatinine Est Cr Clr Drug Dosing Est GFR ( Amer) Est GFR (Non-Af Amer) BUN/Creatinine Ratio Glucose Calcium Phosphorus Magnesium Stool Occult Bld Scrn Medications Administered Current Inpatient Medications Acetaminophen (Acetaminophen 325 Mg Tab) 650 mg PO Q4H PRN PRN Reason: pain/fever Stop: 02/02/21 22:07 Last Admin: 01/04/21 11:28 Dose: 650 mg Documented by: Al Hydrox/Mg Hydrox/Simethicone (Aluminum/Magnesium Susp 30 Ml Udc) 30 ml PO Q6H PRN PRN Reason: Dyspepsia Stop: 02/02/21 22:07 Albuterol (Albut/Ipratrop 3mg/0.5mg Neb 3 Ml Vial) 3 ml NEB Q4R [facility] Stop: 02/02/21 22:59 Last Admin: 01/08/21 19:17 Dose: 3 ml Documented by: Albuterol (Albut/Ipratrop 3mg/0.5mg Neb 3 Ml Vial) 3 ml NEB Q2H PRN PRN Reason: sob Stop: 02/02/21 22:07 Last Admin: 01/05/21 05:56 Dose: 3 ml Documented by: Aspirin (Aspirin 81 Mg Chew) 81 mg PO QAM [facility] Stop: 02/06/21 08:59 Last Admin: 01/08/21 07:47 Dose: 81 mg Documented by: Calcium Carbonate (Calcium Carbonate 500 Mg Chewable Tab) 500 mg PO Q4H PRN PRN Reason: Indigestion Stop: 02/03/21 08:14 Last Admin: 01/04/21 08:27 Dose: 500 mg Documented by: Ezetimibe (Ezetimibe 10 Mg Tablet) 10 mg PO DAILY [facility] Stop: 02/03/21 08:59 Last Admin: 01/08/21 07:47 Dose: 10 mg Documented by: Enoxaparin Sodium (Enoxaparin Inj 40 Mg/0.4 Ml Syr) 40 mg SQ QAM [facility] Stop: 02/04/21 08:59 Last Admin: 01/08/21 08:20 Dose: 40 mg Documented by: Folic Acid (Folic Acid 1 Mg Tab) 1 mg PO DAILY [facility] Stop: 02/03/21 08:59 Last Admin: 01/08/21 07:47 Dose: 1 mg Documented by: Azithromycin 250 mg/ Dextrose 252.5 mls @ 125 mls/hr IV Q24H [facility] Stop: 01/10/21 08:59 Last Infusion: 01/08/21 10:24 Dose: Infused Documented by: Ceftriaxone Sodium 1,000 mg/ (Dextrose) 50 mls @ 100 mls/hr IV Q24H [facility]; Protocol Stop: 01/12/21 08:59 Last Infusion: 01/08/21 08:50 Dose: Infused Documented by: Methylprednisolone 40 mg/ (Syringe) 0.64 mls @ 1.5 mls/min IV BID [facility] Stop: 02/05/21 20:59 Last Admin: 01/08/21 20:01 Dose: 1.5 mls/min Documented by: Dexmedetomidine HCl 200 mcg/ (Sodium Chloride) 50 mls @ 10.66 mls/hr IV .Q4H42M [facility]; Protocol Stop: 01/11/21 13:59 Last Titration: 01/08/21 22:15 Dose: 0.2 mcg/kg/hr, 2.7 mls/hr Documented by: Pantoprazole Sodium 40 mg/ (Syringe) 10 mls @ 5 mls/min IV BID [facility] Stop: 02/07/21 09:59 Last Admin: 01/08/21 20:01 Dose: 5 mls/min Documented by: Nicardipine HCl 25 mg/ Sodium (Chloride) 250 mls @ 0 mls/hr IV .Q0M [facility]; Protocol Stop: 02/07/21 13:54 Last Titration: 01/08/21 15:22 Dose: 0 mg/hr, 0 mls/hr Documented by: Lisinopril (Lisinopril 20 Mg Tab) 20 mg PO QAM [facility] Stop: 02/07/21 08:59 Last Admin: 01/08/21 07:48 Dose: 20 mg Documented by: Metoprolol Tartrate (Metoprolol Tartrate 50 Mg Tab) 50 mg PO BID [facility] Stop: 02/07/21 08:59 Last Admin: 01/08/21 20:01 Dose: Not Given Documented by: Miscellaneous (Remove Nicoderm Patch) 1 ea N/A DAILY@0859 PRN PRN Reason: IF PATCH APPLIED Stop: 02/03/21 08:58 Nicotine (Nicotine 7 Mg/24 Hr Tdsy) 7 mg TD QAM PRN PRN Reason: agitation Stop: 02/02/21 22:07 Last Admin: 01/04/21 10:38 Dose: 7 mg Documented by: Ondansetron HCl (Ondansetron Inj 2 Mg/Ml 2 Ml Vial) 4 mg IV Q6H PRN PRN Reason: Nausea Stop: 02/02/21 22:07 Polyethylene Glycol (Polyethylene (Miralax) 17 Gm Pack) 17 gm PO DAILY PRN PRN Reason: Constipation Stop: 02/02/21 22:07 Rosuvastatin Calcium (Rosuvastatin Calcium 20 Mg Tab) 20 mg PO DAILY [facility] Stop: 02/03/21 08:59 Last Admin: 01/08/21 07:48 Dose: 20 mg Documented by: Thiamine HCl (Thiamine Hcl 100 Mg Tab) 100 mg PO QAM [facility] Stop: 02/03/21 08:59 Last Admin: 01/08/21 07:48 Dose: 100 mg Documented by: Umeclidinium [place] (Umeclidinium [place] 62.5mcg/Blister 7 Puffs/Inhaler) 1 puffs INH DAILY [facility] Stop: 02/03/21 08:59 Last Admin: 01/08/21 10:14 Dose: Not Given Documented by: PG Care Time/CCT Total # of Minutes Spent Total Time Spent: 40 Total Time Spent with Patient: Total time spent is greater than 50% in coordination of care (as documented) at patient's floor/unit and/or counseling patient: Coding Level of Care Code 82947 Subseq Hosp Care Lvl 3 (25 - SIGNIFICANT, SEPARATELY IDENTIFIABLE ) Diagnoses Hypoxia R09.02 COPD exacerbation J44.1 Acute and chronic respiratory failure with hypercapnia J96.22 Hypercapnia R06.89 Hyponatremia E87.1 Hypertension I10 Hypercholesterolemia E78.00 CAD (coronary artery disease) I25.10 COPD (chronic obstructive pulmonary disease) J44.9 COPD type: unspecified COPD Elevated d-dimer R79.89 Lung nodule R91.1 Daily consumption of alcohol Z78.9 Anxiety F41.9 Smoking F17.200 (1) COPD (chronic obstructive pulmonary disease) COPD type: unspecified COPD Qualified Code(s): J44.9 - Chronic obstructive pulmonary disease, unspecified
[2021-01-09] MEDS: ALBUT/IPRATROP 3MG/0.5MG NEB 3 ML VIAL NEB SCH ×6 (03:32→22:05)
[2021-01-09 05:08] LABS: Hematocrit (blood only) 35.7 % (42-52); Hemoglobin 11.9 g/dL (14.0-18.0); Immature Granulocytes # (auto) 0.01 K/uL (0.00-0.02); Immature Granulocytes % (auto) 0.2 %; Lymphocytes # (auto) 0.57 K/uL (1.2-3.4); Lymphocytes % (auto) 9.8 %; Mean Corpuscular Hemoglobin 34.6 pg (25-34); Mean Corpuscular Hgb Conc 33.3 g/dL (32-36); Mean Corpuscular Volume 103.8 fL (80-100); Mean Platelet Volume 9.5 fL (7.4-10.4); Monocytes # (auto) 0.39 K/uL (0.11-0.59); Monocytes % (auto) 6.7 %; Neutrophils # (auto) 4.82 K/uL (1.4-6.5); Neutrophils % (auto) 83.3 %; Platelet Count 120 K/uL (130-400); RDW Coefficient of Variation 12.3 % (11.5-14.5); RDW Standard Deviation 46.4 fL (36.4-46.3); Red Blood Count 3.44 M/uL (4.7-6.1); White Blood Count 5.79 K/uL (4.8-10.8)
[2021-01-09 05:48] LABS: BUN Creatinine Ratio 28.7 (10-20); Calcium 8.2 mg/dl (8.5-10.1); Creatinine Clr Calc Pharmacy 116.4 ml/min; Est GFR (Non-African American) 118.2 ml/min; Magnesium 2.4 mg/dl (1.8-2.4); Phosphorus 3.6 mg/dl (2.5-4.9); Potassium 4.1 mmol/L (3.5-5.1)
[2021-01-09] MEDS: EZETIMIBE 10 MG TABLET PO SCH (07:59)
[2021-01-09] MEDS: METOPROLOL TARTRATE 50 MG TAB PO SCH (07:59)
[2021-01-09] MEDS: lisinopril 20 MG TAB PO SCH (07:59)
[2021-01-09] MEDS: FOLIC ACID 1 MG TAB PO SCH (07:59)
[2021-01-09] MEDS: ROSUVASTATIN CALCIUM 20 MG TAB PO SCH (08:00)
[2021-01-09] MEDS: THIAMINE HCL 100 MG TAB PO SCH (08:00)
[2021-01-09] MEDS: UMECLIDINIUM BROMIDE 62.5MCG/BLISTER 7 PUFFS/INHALER INH SCH (08:00)
[2021-01-09] MEDS: cefTRIAXone SODIUM 1,000 MG in DEXTROSE 5% 50 ML IV SCH (08:02)
[2021-01-09] MEDS: methylPREDNISolone 40 MG in SYRINGE 0 ML IV SCH ×2 (08:03→20:17)
[2021-01-09] MEDS: PANTOprazole 40 MG in SYRINGE 0 ML IV SCH ×2 (08:03→20:17)
[2021-01-09] MEDS: AZITHROMYCIN 250 MG in DEXTROSE 5% 250 ML IV SCH (08:04)
[2021-01-09] MEDS: DEXMEDETOMIDINE HCL 200 MCG in SODIUM CHLORIDE 0.9% 48 ML IV SCH (08:10)
[2021-01-09] MEDS: METOPROLOL TARTRATE 100 MG TAB PO SCH ×2 (08:54→20:18)
--- NOTE | 2021-01-09 08:56 | Critical Care Progress Note ---
Date of Service January 09, 2021 Assessment & Plan (1) COPD exacerbation: Plan: 65-year-old male with a history of oxygen dependent COPD, lung nodule, hypertension, alcoholism and coronary artery disease presenting to the hospital due to COPD exacerbation. Neurologic: No significant issues at present. Delirium resolved. Pulmonary: He is doing very well on nasal cannula. Recommend continued BiPAP at all times when sleeping. He has chronic hypercapnic respiratory failure. Can transition to oral prednisone starting tomorrow. Ceftriaxone and azithromycin for 7 days total. 9 x 7 mm lung nodule in the CT chest in 6 months for follow-up. He has severe emphysema noted on his CT scan. No prior PFTs available for review. Cardiovascular: Metoprolol 100 mg twice daily. Continue lisinopril. Gastrointestinal: Speech therapy consult pending. Tolerated his oral medications well. Renal: No significant issues. Infectious disease: Azithromycin and ceftriaxone for 7 days total. Sputum culture negative to date. Hematologic: No significant issues. Endocrine: Glucose management per ICU protocol. TSH checked 01/04/2021 within normal limits. VTE prophylaxis: Lovenox CODE STATUS: Full code. Prognosis poor. Palliative care is following along with us. (2) Acute and chronic respiratory failure with hypercapnia: (3) Altered mental state: (4) Hyponatremia: (5) Endotracheally intubated: Admission and Anticipated Discharge Date Admission Date: January 03, 2021 Subjective Patient seen and examined this morning. He is alert and awake. He feels much better today. He denies any significant shortness of breath when lying in bed. He is currently on 2 L of oxygen saturating in the high 90s. Hemodynamically stable. Review of Systems Review of Systems: All systems reviewed & are unremarkable except as noted in HPI & below Physical Exam Physical Exam: Constitutional: Patient appears comfortable. Saturating well on nasal cannula. Eyes: Pupils are equal round and reactive to light. Conjunctivae are normal. Anicteric sclera. Ears nose, mouth and throat: Endotracheal tube is in place. Neck: Trachea is midline. Visual inspection is normal. Respiratory: Prolonged phase of exhalation. No significant wheezing. Cardiovascular: Regular rate and rhythm. No murmurs. Minimal edema. Gastrointestinal: Normal bowel sounds, soft, nontender and nondistended. No hepatosplenomegaly noted. Musculoskeletal: No cyanosis. Patient is able to move all extremities. Strength is 5 out of 5 in the upper and lower extremities. Skin: No rashes, warm dry and intact. Neurologic: No obvious focal neurological deficits seen. Psychiatric: Alert and oriented x3. Results & Data Results & Data ([facility]) Vital Signs (Past 12 Hours) Vital Signs Temp Pulse Pulse Resp BP Pulse Ox 01/09/21 07:35 105 H 105 H 26 H 97 01/09/21 06:36 91 H 20 160/87 H 97 01/09/21 05:36 100 H 22 159/84 H 96 01/09/21 04:36 98.2 F 93 H 23 158/86 H 96 01/09/21 03:36 88 18 141/85 H 99 01/09/21 03:32 93 H 93 H 22 97 01/09/21 02:36 95 H 20 129/82 95 01/09/21 01:36 101 H 22 158/87 H 96 01/09/21 00:36 98.1 F 92 H 18 126/82 96 01/08/21 23:36 94 H 16 137/73 97 01/08/21 23:08 94 H 20 97 01/08/21 22:36 93 H 18 141/84 H 96 01/08/21 22:25 77 24 94 01/08/21 21:36 88 15 138/77 96 Vital signs, labs and imaging personally reviewed Coding Level of Care Code 23348 Subseq Hosp Care Lvl 2 Diagnoses COPD exacerbation J44.1 Acute and chronic respiratory failure with hypercapnia J96.22 Altered mental state R41.82 Hyponatremia E87.1 Endotracheally intubated Z97.8
--- NOTE | 2021-01-09 09:04 | Hospitalist Progress Note ---
Date of Service January 09, 2021 Assessment & Plan (1) Hypoxia: Plan: due to COPD exacerbation progressed to need for intubation on 01/[address] Leigh able to be extubated 01/08, straight to BIPAP oxygenated well on BIPAP with FiO2 only 30% main issue is his anxiety, delirium, labile blood pressure this makes compliant with BIPAP difficult, prone to tachypnea when he is anxious able to remove BIPAP, this morning he is calm, breathing comfortably, oxyg enating adequately on low flow nasal canula control anxiety with Hydroxyzine, Seroquel PRN (2) COPD exacerbation: Plan: COPD Exacerbation - Solu Medrol 40 q12, Rocephin, Zithromax for 5-7 days intubated 01/06 extubated 01/08 off BIPAP today, breathing well with low flow nasal canula - CTA w/ evidence of bronchitis, chronic pulm nodules that will need follow up (3) Acute and chronic respiratory failure with hypercapnia: Plan: CO2 down on most recent ABG extubated, then BIPAP, now ventilating well on nasal canula (4) Hypercapnia: Plan: see above (5) Hyponatremia: Plan: Hyponatremia - likely secondary to progressive diarrhea and dehydration & daily beer intake with 1 TV dinner daily for nutrition - - VBG and BMP indicative of nongap metabolic acidosis - Na up to normal (6) Hypertension: Plan: - Continue metoprolol 100mg BID, BP and heart rate up, increase to 150mg BID continue lisinopril 20mg daily (7) Hypercholesterolemia: Plan: - Continue rosuvastatin (8) CAD (coronary artery disease): Plan: - Continue lisinopril - Continue MTP 150mg BID - Continue Aspirin - Continue rosuvastatin (9) COPD (chronic obstructive pulmonary disease): Plan: - See COPD exacerbation (10) Elevated d-dimer: Plan: - likely due to viral infection causing COPD ex, - CTA Chest negative for PE, no sx or swelling indicative of DVT, no hx clotting (11) Lung nodule: Plan: Chest CTA revealed a 9X 7 mm left apical nodule suggestive of pleuralparenchymal scarring however, is new from 2007. 6-month follow-up chest CT is recommended and referred to lung nodule program (12) Daily consumption of alcohol: Plan: - 3 to 4 beers daily, no history of withdrawal/DTs - Last drink evening 01/02 suspect a big component of his anxiety, delirium, labile blood pressure is alcohol withdrawal no signs of withdrawal at this time, likely through the worst of it using Hydroxyzine and Seroquel PRN, he gets very delirious with benzodiazepines (13) Anxiety: Plan: - patient has seen a therapist and psychiatry as outpatient who is interested in seeing again Psych consulted, appreciate recommendations Patient previously on Lexapro, but with severe fatigue. SSRI not appropriate at this time given hyponatremia per daughter, he was on Valium for a long time, transitioned to Klonopin that he did not like as much right now avoiding benzodiazepines due to delirium use Seroquel and Hydroxyzine (14) Smoking: Plan: nicotine patch 7mcg daily Plan: downgrade to [facility] tele PT/OT evaluations Admission and Anticipated Discharge Date Admission Date: January 03, 2021 Subjective patient doing well this morning, calm, breathing easy on 2L, no wheezing or distress d/w Dr. Leigh, will downgrade to medical floor family and patient met with Dr. Braun this morning, discussed goals of care, he would WANT intubated again if needed but he would not want tracheostomy he is not eating much, but he says that he never has been a big eater his anxiety is okay, not great, will use Hydroxyzine or Seroquel as needed, not using benzos right now due to severe delirium BP trending up, Dr. Leigh had resumed his home dose of metoprolol at 100mg BID, might need to increase further labs reviewed, WBC normal, Hb stable, Cr and electrolytes stable Review of Systems 2 Review of Systems: All systems reviewed & are unremarkable except as noted in Subjective Respiratory: + cough and + dyspnea on exertion; no dyspnea and no wheezing Cardiovascular: no chest pain Gastrointestinal: + early satiety; no abdominal pain, no nausea, no vomiting, no constipation and no diarrhea/loose stools Psychiatric: + anxiety Physical Exam Constitutional: well developed, + ill appearing, + thin, + frail appearing and comfortable; no acute distress Neck: trachea midline, no thyromegaly Respiratory: normal respiratory effort and + cough; no respiratory distress and no labored breathing Auscultation: + diminished lung sounds; no crackles, no rales, no rhonchi and no wheezes Cardiovascular: Rate/Rhythm: regular rhythm and + tachycardic Heart Sounds: normal S1 and normal S2; no murmur Extremities: normal capillary refill; no edema Gastrointestinal (Abdomen): normal bowel sounds, soft, nontender, no hepatosplenomegaly Musculoskeletal: Head/Neck/Chest: normocephalic, head atraumatic and neck supple Extremities: extremities normal to inspection and + abnormal strength; no cyanosis, no clubbing and no petechiae Skin: no rashes, warm and dry Neurologic: normal touch/pain/proprioception, CN's II-XI intact bilaterally, moves all extremities and awake; no focal motor deficits Psychiatric: Orientation: alert and oriented x 3 Affect: + anxious affect Results & Data Results & Data ([facility]) Vital Signs (Past 12 Hours) Vital Signs Temp Pulse Pulse Resp BP Pulse Ox 01/09/21 08:19 129 H 23 154/89 H 97 01/09/21 08:00 36.8 C 01/09/21 07:36 106 H 30 H 169/100 H 99 01/09/21 07:35 105 H 105 H 26 H 97 01/09/21 06:36 91 H 20 160/87 H 97 01/09/21 05:36 100 H 22 159/84 H 96 01/09/21 04:36 36.8 C 93 H 23 158/86 H 96 01/09/21 03:36 88 18 141/85 H 99 01/09/21 03:32 93 H 93 H 22 97 01/09/21 02:36 95 H 20 129/82 95 01/09/21 01:36 101 H 22 158/87 H 96 01/09/21 00:36 36.7 C 92 H 18 126/82 96 01/08/21 23:36 94 H 16 137/73 97 01/08/21 23:08 94 H 20 97 01/08/21 22:36 93 H 18 141/84 H 96 01/08/21 22:25 77 24 94 01/08/21 21:36 88 15 138/77 96 Laboratory Results Laboratory Results - last 24 hr 01/08/21 01/08/21 01/09/21 09:45 12:16 04:27 WBC 16.08 H 5.79 D RBC 3.93 L 3.44 L Hgb 13.9 L 11.9 L Hct 41.0 L 35.7 L MCV 104.3 H 103.8 H MCH 35.4 H 34.6 H MCHC 33.9 33.3 RDW Std Deviation 48.0 H 46.4 H RDW Coeff of [place] 12.4 12.3 Plt Count 171 D 120 L MPV 9.3 9.5 Immature Gran % (Auto) 0.2 0.2 Neut % (Auto) 91.7 83.3 Lymph % (Auto) 7.0 9.8 Andrews % (Auto) 1.0 6.7 Eos % (Auto) 0.0 0.0 Baso % (Auto) 0.1 0.0 Neut # (Auto) 14.74 H 4.82 Lymph # (Auto) 1.13 L 0.57 L Andrews # (Auto) 0.16 0.39 Eos # (Auto) 0.00 0.00 Baso # (Auto) 0.01 0.00 Immature Gran # (Auto) 0.04 H 0.01 Platelet Estimate Normal Sodium Potassium Chloride Carbon Dioxide Anion Gap BUN Creatinine Est Cr Clr Drug Dosing Est GFR ( Amer) Est GFR (Non-Af Amer) BUN/Creatinine Ratio Glucose Calcium Phosphorus Magnesium Stool Occult Bld Scrn Positive A 01/09/21 04:27 WBC RBC Hgb Hct MCV MCH MCHC RDW Std Deviation RDW Coeff of [place] Plt Count MPV Immature Gran % (Auto) Neut % (Auto) Lymph % (Auto) Andrews % (Auto) Eos % (Auto) Baso % (Auto) Neut # (Auto) Lymph # (Auto) Andrews # (Auto) Eos # (Auto) Baso # (Auto) Immature Gran # (Auto) Platelet Estimate Sodium 134 L Potassium 4.1 D Chloride 97 L Carbon Dioxide 34 H Anion Gap 3.0 BUN 13 Creatinine 0.44 L Est Cr Clr Drug Dosing 116.4 Est GFR ( Amer) 137.0 Est GFR (Non-Af Amer) 118.2 BUN/Creatinine Ratio 28.7 H Glucose 112 H Calcium 8.2 L Phosphorus 3.6 D Magnesium 2.4 Stool Occult Bld Scrn Medications Administered Current Inpatient Medications Acetaminophen (Acetaminophen 325 Mg Tab) 650 mg PO Q4H PRN PRN Reason: pain/fever Stop: 02/02/21 22:07 Last Admin: 01/04/21 11:28 Dose: 650 mg Documented by: Al Hydrox/Mg Hydrox/Simethicone (Aluminum/Magnesium Susp 30 Ml Udc) 30 ml PO Q6H PRN PRN Reason: Dyspepsia Stop: 02/02/21 22:07 Albuterol (Albut/Ipratrop 3mg/0.5mg Neb 3 Ml Vial) 3 ml NEB Q4R STACEY Stop: 02/02/21 22:59 Last Admin: 01/09/21 07:33 Dose: 3 ml Documented by: Albuterol (Albut/Ipratrop 3mg/0.5mg Neb 3 Ml Vial) 3 ml NEB Q2H PRN PRN Reason: sob Stop: 02/02/21 22:07 Last Admin: 01/05/21 05:56 Dose: 3 ml Documented by: Aspirin (Aspirin 81 Mg Chew) 81 mg PO QAM [facility] Stop: 02/06/21 08:59 Last Admin: 01/08/21 07:47 Dose: 81 mg Documented by: Calcium Carbonate (Calcium Carbonate 500 Mg Chewable Tab) 500 mg PO Q4H PRN PRN Reason: Indigestion Stop: 02/03/21 08:14 Last Admin: 01/04/21 08:27 Dose: 500 mg Documented by: Ezetimibe (Ezetimibe 10 Mg Tablet) 10 mg PO DAILY [facility] Stop: 02/03/21 08:59 Last Admin: 01/09/21 07:59 Dose: 10 mg Documented by: Enoxaparin Sodium (Enoxaparin Inj 40 Mg/0.4 Ml Syr) 40 mg SQ QAM [facility] Stop: 02/04/21 08:59 Last Admin: 01/08/21 08:20 Dose: 40 mg Documented by: Folic Acid (Folic Acid 1 Mg Tab) 1 mg PO DAILY [facility] Stop: 02/03/21 08:59 Last Admin: 01/09/21 07:59 Dose: 1 mg Documented by: Azithromycin 250 mg/ Dextrose 252.5 mls @ 125 mls/hr IV Q24H [facility] Stop: 01/10/21 08:59 Last Admin: 01/09/21 08:04 Dose: 125 mls/hr Documented by: Ceftriaxone Sodium 1,000 mg/ (Dextrose) 50 mls @ 100 mls/hr IV Q24H [facility]; Protocol Stop: 01/12/21 08:59 Last Infusion: 01/09/21 08:54 Dose: Infused Documented by: Methylprednisolone 40 mg/ (Syringe) 0.64 mls @ 1.5 mls/min IV BID [facility] Stop: 02/05/21 20:59 Last Admin: 01/09/21 08:03 Dose: 1.5 mls/min Documented by: Pantoprazole Sodium 40 mg/ (Syringe) 10 mls @ 5 mls/min IV BID [facility] Stop: 02/07/21 09:59 Last Admin: 01/09/21 08:03 Dose: 5 mls/min Documented by: Lisinopril (Lisinopril 20 Mg Tab) 20 mg PO QAM [facility] Stop: 02/07/21 08:59 Last Admin: 01/09/21 07:59 Dose: 20 mg Documented by: Metoprolol Tartrate (Metoprolol Tartrate 100 Mg Tab) 100 mg PO BID [facility] Stop: 02/08/21 08:59 Last Admin: 01/09/21 08:54 Dose: 100 mg Documented by: Miscellaneous (Remove Nicoderm Patch) 1 ea N/A DAILY@0859 PRN PRN Reason: IF PATCH APPLIED Stop: 02/03/21 08:58 Nicotine (Nicotine 7 Mg/24 Hr Tdsy) 7 mg TD QAM PRN PRN Reason: agitation Stop: 02/02/21 22:07 Last Admin: 01/04/21 10:38 Dose: 7 mg Documented by: Ondansetron HCl (Ondansetron Inj 2 Mg/Ml 2 Ml Vial) 4 mg IV Q6H PRN PRN Reason: Nausea Stop: 02/02/21 22:07 Polyethylene Glycol (Polyethylene (Miralax) 17 Gm Pack) 17 gm PO DAILY PRN PRN Reason: Constipation Stop: 02/02/21 22:07 Rosuvastatin Calcium (Rosuvastatin Calcium 20 Mg Tab) 20 mg PO DAILY [facility] Stop: 02/03/21 08:59 Last Admin: 01/09/21 08:00 Dose: 20 mg Documented by: Thiamine HCl (Thiamine Hcl 100 Mg Tab) 100 mg PO QAM [facility] Stop: 02/03/21 08:59 Last Admin: 01/09/21 08:00 Dose: 100 mg Documented by: Umeclidinium [place] (Umeclidinium [place] 62.5mcg/Blister 7 Puffs/Inhaler) 1 puffs INH DAILY [facility] Stop: 02/03/21 08:59 Last Admin: 01/09/21 08:00 Dose: 1 puffs Documented by: PG Care Time/CCT Total # of Minutes Spent Total Time Spent with Patient: Total time spent is greater than 50% in coordination of care (as documented) at patient's floor/unit and/or counseling patient: Coding Level of Care Code 75860 Subseq Hosp Care Lvl 3 Diagnoses Hypoxia R09.02 COPD exacerbation J44.1 Acute and chronic respiratory failure with hypercapnia J96.22 Hypercapnia R06.89 Hyponatremia E87.1 Hypertension I10 Hypercholesterolemia E78.00 CAD (coronary artery disease) I25.10 COPD (chronic obstructive pulmonary disease) J44.9 COPD type: unspecified COPD Elevated d-dimer R79.89 Lung nodule R91.1 Daily consumption of alcohol Z78.9 Anxiety F41.9 Smoking F17.200 (1) COPD (chronic obstructive pulmonary disease) COPD type: unspecified COPD Qualified Code(s): J44.9 - Chronic obstructive pulmonary disease, unspecified
--- NOTE | 2021-01-09 09:50 | Palliative Care Progress Note ---
Date of Service January 09, 2021 Assessment & Plan (1) Anxiety: Plan: Did not tolerate lorazepam with excessive sedation. He has been on valium and clonazepam in the past. Could consider low dose seroquel if needed. (2) Dyspnea: Plan: On O2 NC with bipap as needed (3) Palliative care encounter: Plan: I met with Xavi's three children to review his current status and talk about goals of care. They tell me that he has in the past said that he would want resuscitation, even after previous cardiac event. However, they feel that he is not ready to and they confirmed with him that he would want intubation prior to his recent time on the vent. They understand that overall, his condition is fragile. They would want to continue current level of care and have considered vent support up to the point of tracheostomy because they are certain that he would not want trach and PEG. We all spoke with Xavi about his goals. He tells us that being able to talk and interact with his children is his greatest rosalia. If he were unable to do that, he would not feel that life was worth living. We talked about how he would feel about intubation if his respiratory status declined and he is initially uncertain about what he would want. After further discussion with his family, they have decided that they would want intubation if necessary but if he were not able to wean and tracheostomy was considered, that would not be quality of life for him and he would want to withdraw vent support at that time. (4) COPD exacerbation: (5) Lung nodule: (6) CAD (coronary artery disease): Admission and Anticipated Discharge Date Admission Date: January 03, 2021 Subjective Feeling better this morning. Able to work with PT and sit in chair at bedside. Breathing is labored with conversation. Reports anxiety is controlled this morning Review of Systems Review of Systems: [place] Symptom Assessment Scale Pain 0/3 Dyspnea 2/3 Nausea 0/3 Anorexia 2/3 Fatigue 2/3 Drowsiness 0/3 Palliative Performance Score 40% Physical Exam Constitutional: + ill appearing and + thin Respiratory: + labored breathing and + uses accessory muscles Cardiovascular: Rate/Rhythm: regular rate and regular rhythm Extremities: no edema Gastrointestinal (Abdomen): Inspection/Auscultation: abdomen not distended Musculoskeletal: Extremities: + muscle atrophy Neurologic: awake; not confused Genitourinary: [place] catheter Results & Data ([facility]) Vital Signs (Past 12 Hours) Vital Signs Temp Pulse Pulse Resp BP Pulse Ox 01/09/21 08:19 129 H 23 154/89 H 97 01/09/21 08:00 98.2 F 01/09/21 07:36 106 H 30 H 169/100 H 99 01/09/21 07:35 105 H 105 H 26 H 97 01/09/21 06:36 91 H 20 160/87 H 97 01/09/21 05:36 100 H 22 159/84 H 96 01/09/21 04:36 98.2 F 93 H 23 158/86 H 96 01/09/21 03:36 88 18 141/85 H 99 01/09/21 03:32 93 H 93 H 22 97 01/09/21 02:36 95 H 20 129/82 95 01/09/21 01:36 101 H 22 158/87 H 96 01/09/21 00:36 98.1 F 92 H 18 126/82 96 01/08/21 23:36 94 H 16 137/73 97 01/08/21 23:08 94 H 20 97 01/08/21 22:36 93 H 18 141/84 H 96 01/08/21 22:25 77 24 94 PG Care Time/CCT Total # of Minutes Spent Total Time Spent: 90 Total Time Spent with Patient: Total time spent is greater than 50% in coordinat ion of care (as documented) at patient's floor/unit and/or counseling patient:goals of care, code status, family education and support, discussion with Drs. Leigh and John. Coding Level of Care Code 25140 Subseq Hosp Care Lvl 3 Diagnoses Anxiety F41.9 Dyspnea R06.00 Palliative care encounter Z51.5 COPD exacerbation J44.1 Lung nodule R91.1 CAD (coronary artery disease) I25.10
--- NOTE | 2021-01-09 14:36 | XRay Report ---
XR chest 1V portable CLINICAL HISTORY: f/u COMPARISON STUDY: January 08, 2021 FINDINGS: No pneumothorax. No pleural effusion. Asymmetrical reticular prominence of pulmonary interstitial within the right mid to lower lung is sta ble since prior study but slightly improved since January 05, 2021 which might represent improved pneu monitis. Bilateral lungs are hyperinflated. Flattening of right and left hemidiaphragm is seen. Cardiomediastinal silhouette is within normal limits in size. No significant pulmonary vascular congestion.. Aorta is calcified Osseous structures: Degenerative changes of the spine. Interval removal of the endotracheal and gastric tubes. IMPRESSION: 1. Mild interval improvement of interstitial prominence of the left mid to lower lung which might re present improvement of pneumonitis. 2. COPD pattern. 3. Interval removal of endotracheal and gastric tubes.. ACT 112: Negative or not required by law. The above report was generated using voice recognition software. It may contain grammatical, syntax o r spelling errors. Electronically signed by: Chika Patten DO 01/09/2021 2:34 PM
[2021-01-09] MEDS ORDERED: hydrALAZINE HCL 20 MG/ML VIAL IV PRN (21:19)
[2021-01-10] MEDS: ALBUT/IPRATROP 3MG/0.5MG NEB 3 ML VIAL NEB SCH ×6 (02:34→22:03)
[2021-01-10] MEDS: ACETAMINOPHEN 325 MG TAB PO PRN (04:33)
[2021-01-10 06:12] LABS: Hemoglobin 13.2 g/dL (14.0-18.0); Immature Granulocytes # (auto) 0.03 K/uL (0.00-0.02); Immature Granulocytes % (auto) 0.3 %; Lymphocytes # (auto) 0.74 K/uL (1.2-3.4); Lymphocytes % (auto) 7.5 %; Mean Corpuscular Hemoglobin 34.4 pg (25-34); Mean Corpuscular Volume 104.2 fL (80-100); Mean Platelet Volume 9.5 fL (7.4-10.4); Monocytes % (auto) 8.1 %; Neutrophils % (auto) 84.1 %; Platelet Count 176 K/uL (130-400); RDW Coefficient of Variation 12.2 % (11.5-14.5); Red Blood Count 3.84 M/uL (4.7-6.1); White Blood Count 9.87 K/uL (4.8-10.8)
[2021-01-10 06:48] LABS: BUN Creatinine Ratio 31.3 (10-20); Calcium 8.6 mg/dl (8.5-10.1); Creatinine Clr Calc Pharmacy 95.2 ml/min; Est GFR (African American) 125.9 ml/min; Est GFR (Non-African American) 108.6 ml/min; Magnesium 2.6 mg/dl (1.8-2.4); Phosphorus 3.3 mg/dl (2.5-4.9); Potassium 4.2 mmol/L (3.5-5.1)
[2021-01-10] MEDS: FOLIC ACID 1 MG TAB PO SCH (08:44)
[2021-01-10] MEDS: THIAMINE HCL 100 MG TAB PO SCH (08:44)
[2021-01-10] MEDS: lisinopril 20 MG TAB PO SCH (08:44)
[2021-01-10] MEDS: EZETIMIBE 10 MG TABLET PO SCH (08:44)
[2021-01-10] MEDS: ROSUVASTATIN CALCIUM 20 MG TAB PO SCH (08:44)
--- NOTE | 2021-01-10 08:44 | Hospitalist Progress Note ---
Date of Service January 10, 2021 Assessment & Plan (1) Hypoxia: Plan: due to COPD exacerbation progressed to need for intubation on 01/[address] Legih able to be extubated 01/08, straight to BIPAP oxygenated well on BIPAP with FiO2 only 30% main issue was his anxiety, delirium, labile blood pressures made compliance with BIPAP difficult, prone to tachypnea when he is anxious able to remove BIPAP morning of 01/09, he has been calm, breathing comfortably, oxygenating adequately on low flow nasal canula 2L control anxiety with Hydroxyzine, Seroquel PRN (no doses needed since they were ordered) very stable today, 01/10 (2) COPD exacerbation: Plan: COPD Exacerbation - Solu Medrol 40 q12, Rocephin, Zithromax for 5-7 days reduce Solu Medrol to 20 q12 starting this evening stop antibiotics intubated 01/06 extubated 01/08 off BIPAP for two days, breathing well with low flow nasal canula 2L - CTA w/ evidence of bronchitis, chronic pulm nodules that will need follow up (3) Acute and chronic respiratory failure with hypercapnia: Plan: CO2 down on most recent ABG extubated, then BIPAP, now ventilating well on nasal canula (4) Hypercapnia: Plan: see above (5) Hyponatremia: Plan: Hyponatremia - likely secondary to progressive diarrhea and dehydration & daily beer intake with 1 TV dinner daily for nutrition - - VBG and BMP indicative of nongap metabolic acidosis - Na up to normal (6) Hypertension: Plan: - Continue metoprolol 150mg BID continue lisinopril 20mg daily (7) Hypercholesterolemia: Plan: - Continue rosuvastatin (8) CAD (coronary artery disease): Plan: - Continue lisinopril - Continue MTP 150mg BID - Continue Aspirin - Continue rosuvastatin (9) COPD (chronic obstructive pulmonary disease): Plan: - See COPD exacerbation (10) Elevated d-dimer: Plan: - likely due to viral infection causing COPD ex, - CTA Chest negative for PE, no sx or swelling indicative of DVT, no hx clotting (11) Lung nodule: Plan: Chest CTA revealed a 9X 7 mm left apical nodule suggestive of pleuralparenchymal scarring however, is new from 2007. 6-month follow-up chest CT is recommended and referred to lung nodule program (12) Daily consumption of alcohol: Plan: - 3 to 4 beers daily, no history of withdrawal/DTs - Last drink evening 01/02 suspect a big component of his anxiety, delirium, labile blood pressure is alcohol withdrawal no signs of withdrawal at this time, likely through the worst of it using Hydroxyzine and Seroquel PRN, he gets very delirious with benzodiazepines (13) Anxiety: Plan: - patient has seen a therapist and psychiatry as outpatient who is interested in seeing again Psych consulted, appreciate recommendations Patient previously on Lexapro, but with severe fatigue. SSRI not appropriate at this time given hyponatremia per daughter, he was on Valium for a long time, transitioned to Klonopin that he did not like as much right now avoiding benzodiazepines due to delirium use Seroquel and Hydroxyzine PRN but he has not needed a dose (14) Smoking: Plan: nicotine patch 7mcg daily Plan: downgrade to [facility] tele PT/OT evaluations likely will need rehab, he is agreeable Admission and Anticipated Discharge Date Admission Date: January 03, 2021 Subjective patient doing really well, he is very calm, breathing comfortably on 2L, saturations are stable he is eating okay, not much for breakfast but that is normal no issues with anxiety, has not required a dose of hydroxyzine or seroquel slept okay last night no chest pain, no fever, minimal cough, no nausea, no vomiting, no diarrhea he admits he is weak, agrees to rehab Review of Systems Review of Systems: All systems reviewed & are unremarkable except as noted in Subjective Respiratory: + cough and + dyspnea on exertion; no dyspnea and no sputum production Cardiovascular: no chest pain and no edema Gastrointestinal: + early satiety; no abdominal pain, no nausea, no vomiting, no constipation and no diarrhea/loose stools Physical Exam Constitutional: well developed, + thin, + frail appearing and comfortable; no acute distress and not ill appearing Neck: trachea midline, no thyromegaly Respiratory: normal respiratory effort and + cough; no respiratory distress and no labored breathing Auscultation: + diminished lung sounds; no crackles, no rales, no rhonchi and no wheezes Cardiovascular: RRR, no murmur, no edema Rate/Rhythm: regular rate and regular rhythm Heart Sounds: normal S1 and normal S2; no murmur Extremities: normal capillary refill; no edema Gastrointestinal (Abdomen): normal bowel sounds, soft, nontender, no hepatosplenomegaly Musculoskeletal: Head/Neck/Chest: normocephalic, head atraumatic and neck supple Extremities: extremities normal to inspection and + abnormal strength; no cyanosis, no clubbing and no petechiae Skin: no rashes, warm and dry Neurologic: normal touch/pain/proprioception, CN's II-XI intact bilaterally, moves all extremities and awake; no focal motor deficits Psychiatric: Orientation: alert and oriented x 3 Affect: euthymic affect Results & Data Results & Data ([facility]) Vital Signs (Past 12 Hours) Vital Signs Temp Pulse Pulse Resp BP Pulse Ox 01/10/21 07:43 36.9 C 88 16 166/90 H 96 01/10/21 07:14 90 01/10/21 07:05 82 18 96 01/10/21 04:10 84 01/10/21 03:03 36.6 C 88 16 178/93 H 97 01/10/21 02:34 87 16 93 01/09/21 23:02 37 C 80 16 168/97 H 93 01/09/21 22:05 84 94 Laboratory Results Laboratory Results - last 24 hr 01/10/21 01/10/21 05:26 05:26 WBC 9.87 RBC 3.84 L Hgb 13.2 L Hct 40.0 L MCV 104.2 H MCH 34.4 H MCHC 33.0 RDW Std Deviation 47.0 H RDW Coeff of [place] 12.2 Plt Count 176 MPV 9.5 Immature Gran % (Auto) 0.3 Neut % (Auto) 84.1 Lymph % (Auto) 7.5 [place] % (Auto) 8.1 Eos % (Auto) 0.0 Baso % (Auto) 0.0 Neut # (Auto) 8.30 H Lymph # (Auto) 0.74 L [place] # (Auto) 0.80 H Eos # (Auto) 0.00 Baso # (Auto) 0.00 Immature Gran # (Auto) 0.03 H Sodium 135 L Potassium 4.2 Chloride 98 Carbon Dioxide 34 H Anion Gap 3.0 BUN 17 Creatinine 0.54 L Est Cr Clr Drug Dosing 95.2 Est GFR ( Amer) 125.9 Est GFR (Non-Af Amer) 108.6 BUN/Creatinine Ratio 31.3 H Glucose 113 H Calcium 8.6 Phosphorus 3.3 Magnesium 2.6 H Medications Administered Current Inpatient Medications Acetaminophen (Acetaminophen 325 Mg Tab) 650 mg PO Q4H PRN PRN Reason: pain/fever Stop: 02/02/21 22:07 Last Admin: 01/10/21 04:33 Dose: 650 mg Documented by: Al Hydrox/Mg Hydrox/Simethicone (Aluminum/Magnesium Susp 30 Ml Udc) 30 ml PO Q 6H PRN PRN Reason: Dyspepsia Stop: 02/02/21 22:07 Albuterol (Albut/Ipratrop 3mg/0.5mg Neb 3 Ml Vial) 3 ml NEB Q4R [facility] Stop: 02/02/21 22:59 Last Admin: 01/10/21 07:04 Dose: 3 ml Documented by: Albuterol (Albut/Ipratrop 3mg/0.5mg Neb 3 Ml Vial) 3 ml NEB Q2H PRN PRN Reason: sob Stop: 02/02/21 22:07 Last Admin: 01/05/21 05:56 Dose: 3 ml Documented by: Aspirin (Aspirin 81 Mg Chew) 81 mg PO QAM [facility] Stop: 02/06/21 08:59 Last Admin: 01/08/21 07:47 Dose: 81 mg Documented by: Calcium Carbonate (Calcium Carbonate 500 Mg Chewable Tab) 500 mg PO Q4H PRN PRN Reason: Indigestion Stop: 02/03/21 08:14 Last Admin: 01/04/21 08:27 Dose: 500 mg Documented by: Ezetimibe (Ezetimibe 10 Mg Tablet) 10 mg PO DAILY [facility] Stop: 02/03/21 08:59 Last Admin: 01/09/21 07:59 Dose: 10 mg Documented by: Enoxaparin Sodium (Enoxaparin Inj 40 Mg/0.4 Ml Syr) 40 mg SQ QAM [facility] Stop: 02/04/21 08:59 Last Admin: 01/08/21 08:20 Dose: 40 mg Documented by: Folic Acid (Folic Acid 1 Mg Tab) 1 mg PO DAILY [facility] Stop: 02/03/21 08:59 Last Admin: 01/09/21 07:59 Dose: 1 mg Documented by: Hydralazine HCl (Hydralazine Hcl 20 Mg/Ml Vial) 10 mg IV Q6 PRN PRN Reason: Blood Pressure - High Stop: 02/08/21 21:18 Hydroxyzine HCl (Hydroxyzine Hcl 25 Mg Tab) 25 mg PO Q8 PRN PRN Reason: Anxiety Stop: 02/08/21 15:57 Azithromycin 250 mg/ Dextrose 252.5 mls @ 125 mls/hr IV Q24H [facility] Stop: 01/10/21 08:59 Last Infusion: 01/09/21 10:14 Dose: Infused Documented by: Ceftriaxone Sodium 1,000 mg/ (Dextrose) 50 mls @ 100 mls/hr IV Q24H [facility]; Protocol Stop: 01/12/21 08:59 Last Infusion: 01/09/21 08:54 Dose: Infused Documented by: Methylprednisolone 40 mg/ (Syringe) 0.64 mls @ 1.5 mls/min IV BID [facility] Stop: 02/05/21 20:59 Last Admin: 01/09/21 20:17 Dose: 1.5 mls/min Documented by: Pantoprazole Sodium 40 mg/ (Syringe) 10 mls @ 5 mls/min IV BID [facility] Stop: 02/07/21 09:59 Last Admin: 01/09/21 20:17 Dose: 5 mls/min Documented by: Lisinopril (Lisinopril 20 Mg Tab) 20 mg PO QAM [facility] Stop: 02/07/21 08:59 Last Admin: 01/09/21 07:59 Dose: 20 mg Documented by: Metoprolol Tartrate (Metoprolol Tartrate 50 Mg Tab) 150 mg PO BID [facility] Stop: 02/09/21 08:59 Miscellaneous (Remove Nicoderm Patch) 1 ea N/A DAILY@0859 PRN PRN Reason: IF PATCH APPLIED Stop: 02/03/21 08:58 Nicotine (Nicotine 7 Mg/24 Hr Tdsy) 7 mg TD QAM PRN PRN Reason: agitation Stop: 02/02/21 22:07 Last Admin: 01/04/21 10:38 Dose: 7 mg Documented by: Ondansetron HCl (Ondansetron Inj 2 Mg/Ml 2 Ml Vial) 4 mg IV Q6H PRN PRN Reason: Nausea Stop: 02/02/21 22:07 Polyethylene Glycol (Polyethylene (Miralax) 17 Gm Pack) 17 gm PO DAILY PRN PRN Reason: Constipation Stop: 02/02/21 22:07 Quetiapine Fumarate (Quetiapine Fumarate 25 Mg Tablet) 12.5 mg PO Q12 PRN PRN Reason: Anxiety Stop: 02/08/21 20:59 Rosuvastatin Calcium (Rosuvastatin Calcium 20 Mg Tab) 20 mg PO DAILY [facility] Stop: 02/03/21 08:59 Last Admin: 01/09/21 08:00 Dose: 20 mg Documented by: Thiamine HCl (Thiamine Hcl 100 Mg Tab) 100 mg PO QAM [facility] Stop: 02/03/21 08:59 Last Admin: 01/09/21 08:00 Dose: 100 mg Documented by: Umeclidinium [place] (Umeclidinium [place] 62.5mcg/Blister 7 Puffs/Inhaler) 1 puffs INH DAILY [facility] Stop: 02/03/21 08:59 Last Admin: 01/09/21 08:00 Dose: 1 puffs Documented by: PG Care Time/CCT Total # of Minutes Spent Total Time Spent with Patient: Total time spent is greater than 50% in coordination of care (as documented) at patient's floor/unit and/or counseling patient: Coding Level of Care Code 08226 Subseq Hosp Care Lvl 3 Diagnoses Hypoxia R09.02 COPD exacerbation J44.1 Acute and chronic respiratory failure with hypercapnia J96.22 Hypercapnia R06.89 Hyponatremia E87.1 Hypertension I10 Hypercholesterolemia E78.00 CAD (coronary artery disease) I25.10 COPD (chronic obstructive pulmonary disease) J44.9 COPD type: unspecified COPD Elevated d-dimer R79.89 Lung nodule R91.1 Daily consumption of alcohol Z78.9 Anxiety F41.9 Smoking F17.200 (1) COPD (chronic obstructive pulmonary disease) COPD type: unspecified COPD Qualified Code(s): J44.9 - Chronic obstructive pulmonary disease, unspecified
[2021-01-10] MEDS: methylPREDNISolone 40 MG in SYRINGE 0 ML IV SCH (08:45)
[2021-01-10] MEDS: ENOXAPARIN INJ 40 MG/0.4 ML SYR SQ SCH (08:45)
[2021-01-10] MEDS: PANTOprazole 40 MG in SYRINGE 0 ML IV SCH (08:45)
[2021-01-10] MEDS: cefTRIAXone SODIUM 1,000 MG in DEXTROSE 5% 50 ML IV SCH (08:46)
[2021-01-10] MEDS: ASPIRIN 81 MG CHEW PO SCH (08:48)
[2021-01-10] MEDS ORDERED: METOPROLOL TARTRATE 50 MG TAB PO SCH (09:00)
[2021-01-10] MEDS: UMECLIDINIUM BROMIDE 62.5MCG/BLISTER 7 PUFFS/INHALER INH SCH (11:04)
[2021-01-10] MEDS: hydrOXYzine HCl 25 MG TAB PO PRN (14:44)
[2021-01-10] MEDS: QUEtiapine FUMARATE 25 MG TABLET PO PRN (15:35)
[2021-01-10] MEDS: methylPREDNISolone 20 MG in SYRINGE 0 ML IV SCH (20:53)
[2021-01-10] MEDS: METOPROLOL TARTRATE 100 MG TAB PO SCH (20:56)
[2021-01-11] MEDS: ALBUT/IPRATROP 3MG/0.5MG NEB 3 ML VIAL NEB SCH ×2 (03:08→07:45)
[2021-01-11 07:28] LABS: Basophils # (auto) 0.01 K/uL (0-0.2); Basophils % (auto) 0.1 %; Hematocrit (blood only) 42.2 % (42-52); Immature Granulocytes # (auto) 0.02 K/uL (0.00-0.02); Immature Granulocytes % (auto) 0.2 %; Lymphocytes # (auto) 1.33 K/uL (1.2-3.4); Lymphocytes % (auto) 10.4 %; Mean Corpuscular Hemoglobin 34.8 pg (25-34); Mean Corpuscular Hgb Conc 33.2 g/dL (32-36); Mean Platelet Volume 9.2 fL (7.4-10.4); Monocytes # (auto) 1.37 K/uL (0.11-0.59); Monocytes % (auto) 10.7 %; Neutrophils # (auto) 10.03 K/uL (1.4-6.5); Neutrophils % (auto) 78.6 %; Platelet Count 197 K/uL (130-400); RDW Coefficient of Variation 12.2 % (11.5-14.5); RDW Standard Deviation 47.2 fL (36.4-46.3); Red Blood Count 4.02 M/uL (4.7-6.1); White Blood Count 12.76 K/uL (4.8-10.8)
[2021-01-11] MEDS: EZETIMIBE 10 MG TABLET PO SCH (07:28)
[2021-01-11] MEDS: FOLIC ACID 1 MG TAB PO SCH (07:29)
[2021-01-11] MEDS: ROSUVASTATIN CALCIUM 20 MG TAB PO SCH (07:29)
[2021-01-11] MEDS: PANTOprazole 40 MG TAB PO SCH (07:29)
[2021-01-11] MEDS: THIAMINE HCL 100 MG TAB PO SCH (07:30)
[2021-01-11] MEDS: lisinopril 20 MG TAB PO SCH (07:30)
[2021-01-11] MEDS: methylPREDNISolone 20 MG in SYRINGE 0 ML IV SCH ×2 (07:32→20:49)
[2021-01-11] MEDS: UMECLIDINIUM BROMIDE 62.5MCG/BLISTER 7 PUFFS/INHALER INH SCH (07:33)
[2021-01-11] MEDS: ENOXAPARIN INJ 40 MG/0.4 ML SYR SQ SCH (07:33)
[2021-01-11] MEDS: hydrOXYzine HCl 25 MG TAB PO PRN (07:43)
[2021-01-11] MEDS: ASPIRIN 81 MG CHEW PO SCH (07:43)
[2021-01-11 07:44] LABS: Calcium 8.9 mg/dl (8.5-10.1); Creatinine Clr Calc Pharmacy 82.3 ml/min; Est GFR (African American) 121.4 ml/min; Est GFR (Non-African American) 104.8 ml/min; Magnesium 2.4 mg/dl (1.8-2.4); Potassium 4.3 mmol/L (3.5-5.1)
[2021-01-11 07:45] LABS: Phosphorus 3.3 mg/dl (2.5-4.9)
[2021-01-11] MEDS: METOPROLOL TARTRATE 100 MG TAB PO SCH ×2 (07:57→20:48)
--- NOTE | 2021-01-11 12:30 | Hospitalist Progress Note ---
Date of Service January 11, 2021 Assessment & Plan (1) Hypoxia: Plan: due to COPD exacerbation progressed to need for intubation on 01/06 able to be extubated 01/08, straight to BIPAP oxygenated well on BIPAP with FiO2 only 30% able to remove BIPAP morning of 01/09, he has been calm, breathing comfortably, oxygenating adequately on low flow nasal canula 2L control anxiety with Hydroxyzine, Seroquel PRN (no doses needed since they were ordered) very stable the past two days (2) COPD exacerbation: Plan: COPD Exacerbation reduce Solu Medrol to 20 q12 today, start Prednisone 40mg daily tomorrow with taper stopped antibiotics 01/10 after 7 days intubated 01/06 extubated 01/08 off BIPAP for three days, breathing well with low flow nasal canula 2L - CTA w/ evidence of bronchitis, chronic pulm nodules that will need follow up in 6 months (3) Acute and chronic respiratory failure with hypercapnia: Plan: CO2 down on most recent ABG extubated, then BIPAP, now ventilating well on nasal canula (4) Hypercapnia: Plan: see above (5) Hyponatremia: Plan: Hyponatremia - likely secondary to progressive diarrhea and dehydration & daily beer intake with 1 TV dinner daily for nutrition - - VBG and BMP indicative of nongap metabolic acidosis - Na up to normal (6) Hypertension: Plan: - Continue metoprolol 200mg BID continue lisinopril 20mg daily (7) Hypercholesterolemia: Plan: - Continue rosuvastatin (8) CAD (coronary artery disease): Plan: - Continue lisinopril - Continue MTP 200mg BID - Continue Aspirin - Continue rosuvastatin (9) COPD (chronic obstructive pulmonary disease): Plan: - See COPD exacerbation (10) Elevated d-dimer: Plan: - likely due to viral infection causing COPD ex, - CTA Chest negative for PE, no sx or swelling indicative of DVT, no hx clotting (11) Lung nodule: Plan: Chest CTA revealed a 9X 7 mm left apical nodule suggestive of pleuralparenchymal scarring however, is new from 2007. 6-month follow-up chest CT is recommended and referred to lung nodule program (12) Daily consumption of alcohol: Plan: - 3 to 4 beers daily, no history of withdrawal/DTs - Last drink evening 01/02 suspect a big component of his anxiety, delirium, labile blood pressure is alcohol withdrawal no signs of withdrawal at this time, likely through the worst of it using Hydroxyzine and Seroquel PRN, he gets very delirious with benzodiazepines - AVOID! (13) Anxiety: Plan: - patient has seen a therapist and psychiatry as outpatient who is interested in seeing again Psych consulted, appreciate recommendations Patient previously on Lexapro, but with severe fatigue. SSRI not appropriate at this time given hyponatremia per daughter, he was on Valium for a long time, transitioned to Klonopin that he did not like as much right now avoiding benzodiazepines due to delirium use Seroquel and Hydroxyzine PRN but he has not needed a dose (14) Smoking: Plan: nicotine patch 7mcg daily Plan: downgrade to [facility] PT/OT evaluations likely will need rehab, he is agreeable Admission and Anticipated Discharge Date Admission Date: January 03, 2021 Subjective patient doing well, intermittent cough, scant sputum that is yellow, mild dyspnea eating okay, about the same as he always does we stopped scheduled nebulizers cause they are making him more anxious doing well with the lower Solu Medrol dose of 20 q12, change to Prednisone tomorrow encouraged him to use incentive spirometer and flutter valve BP is better on the increased dose of metoprolol 200mg, this is home does, HR is < 100 no chest pain, no fever/chills, no nausea/vomiting, no constipation Review of Systems Review of Systems: All systems reviewed & are unremarkable except as noted in Subjective Constitutional: + fatigue and + weakness; no fever Respiratory: + cough and + dyspnea on exertion; no wheezing Cardiovascular: no chest pain and no edema Gastrointestinal: no abdominal pain, no nausea and no vomiting Physical Exam Constitutional: well developed, + thin, + frail appearing and comfortable; no acute distress and not ill appearing Neck: trachea midline, no thyromegaly Respiratory: normal respiratory effort and + cough; no respiratory distress and no labored breathing Auscultation: + diminished lung sounds; no crackles, no rales, no rhonchi and no wheezes Cardiovascular: Rate/Rhythm: regular rate and regular rhythm Heart Sounds: normal S1 and normal S2; no murmur Extremities: normal capillary refill; no edema Gastrointestinal (Abdomen): normal bowel sounds, soft, nontender, no hepatosplenomegaly Musculoskeletal: Head/Neck/Chest: normocephalic, head atraumatic and neck supple Extremities: extremities normal to inspection and + abnormal strength; no cyanosis, no clubbing and no petechiae Skin: no rashes, warm and dry Neurologic: normal touch/pain/proprioception, CN's II-XI intact bilaterally, moves all extremities and awake; no focal motor deficits Psychiatric: Orientation: alert and oriented x 3 Affect: euthymic affect Results & Data Results & Data ([facility]) Vital Signs (Past 12 Hours) Vital Signs Temp Pulse Pulse Resp BP Pulse Ox 01/11/21 11:32 36.7 C 77 18 165/99 H 94 01/11/21 07:46 92 H 18 93 01/11/21 07:42 37.0 C 89 18 192/106 H 92 01/11/21 04:05 36.5 C 98 H 18 166/91 H 94 01/11/21 03:09 105 H 18 96 01/11/21 03:00 79 Laboratory Results Laboratory Results - last 24 hr 01/11/21 01/11/21 07:14 07:14 WBC 12.76 H RBC 4.02 L Hgb 14.0 Hct 42.2 MCV 105.0 H MCH 34.8 H MCHC 33.2 RDW Std Deviation 47.2 H RDW Coeff of [place] 12.2 Plt Count 197 MPV 9.2 Immature Gran % (Auto) 0.2 Neut % (Auto) 78.6 Lymph % (Auto) 10.4 [place] % (Auto) 10.7 Eos % (Auto) 0.0 Baso % (Auto) 0.1 Neut # (Auto) 10.03 H Lymph # (Auto) 1.33 [place] # (Auto) 1.37 H Eos # (Auto) 0.00 Baso # (Auto) 0.01 Immature Gran # (Auto) 0.02 Sodium 140 Potassium 4.3 Chloride 98 Carbon Dioxide 36 H Anion Gap 6.0 BUN 19 H Creatinine 0.59 L Est Cr Clr Drug Dosing 82.3 Est GFR ( Amer) 121.4 Est GFR (Non-Af Amer) 104.8 BUN/Creatinine Ratio 32.0 H Glucose 92 Calcium 8.9 Phosphorus 3.3 Magnesium 2.4 Medications Administered Current Inpatient Medications Acetaminophen (Acetaminophen 325 Mg Tab) 650 mg PO Q4H PRN PRN Reason: pain/fever Stop: 02/02/21 22:07 Last Admin: 01/10/21 04:33 Dose: 650 mg Documented by: Al Hydrox/Mg Hydrox/Simethicone (Aluminum/Magnesium Susp 30 Ml Udc) 30 ml PO Q6H PRN PRN Reason: Dyspepsia Stop: 02/02/21 22:07 Albuterol (Albut/Ipratrop 3mg/0.5mg Neb 3 Ml Vial) 3 ml NEB Q2H PRN PRN Reason: sob Stop: 02/02/21 22:07 Last Admin: 01/05/21 05:56 Dose: 3 ml Documented by: Aspirin (Aspirin 81 Mg Chew) 81 mg PO QAM [facility] Stop: 02/06/21 08:59 Last Admin: 01/11/21 07:43 Dose: 81 mg Documented by: Calcium Carbonate (Calcium Carbonate 500 Mg Chewable Tab) 500 mg PO Q4H PRN PRN Reason: Indigestion Stop: 02/03/21 08:14 Last Admin: 01/04/21 08:27 Dose: 500 mg Documented by: Ezetimibe (Ezetimibe 10 Mg Tablet) 10 mg PO DAILY [facility] Stop: 02/03/21 08:59 Last Admin: 01/11/21 07:28 Dose: 10 mg Documented by: Enoxaparin Sodium (Enoxaparin Inj 40 Mg/0.4 Ml Syr) 40 mg SQ QAM [facility] Stop: 02/04/21 08:59 Last Admin: 01/11/21 07:33 Dose: 40 mg Documented by: Folic Acid (Folic Acid 1 Mg Tab) 1 mg PO DAILY [facility] Stop: 02/03/21 08:59 Last Admin: 01/11/21 07:29 Dose: 1 mg Documented by: Hydralazine HCl (Hydralazine Hcl 20 Mg/Ml Vial) 10 mg IV Q6 PRN PRN Reason: Blood Pressure - High Stop: 02/08/21 21:18 Last Admin: 01/11/21 07:26 Dose: 10 mg Documented by: Hydroxyzine HCl (Hydroxyzine Hcl 25 Mg Tab) 25 mg PO Q8 PRN PRN Reason: Anxiety Stop: 02/08/21 15:57 Last Admin: 01/11/21 07:43 Dose: 25 mg Documented by: Methylprednisolone 20 mg/ (Syringe) 0.32 mls @ 1.5 mls/min IV BID [facility] Stop: 02/09/21 20:59 Last Admin: 01/11/21 07:32 Dose: 1.5 mls/min Documented by: Lisinopril (Lisinopril 20 Mg Tab) 20 mg PO QAM [facility] Stop: 02/07/21 08:59 Last Admin: 01/11/21 07:30 Dose: 20 mg Documented by: Metoprolol Tartrate (Metoprolol Tartrate 100 Mg Tab) 200 mg PO BID [facility] Stop: 02/09/21 20:59 Last Admin: 01/11/21 07:57 Dose: 200 mg Documented by: Miscellaneous (Remove Nicoderm Patch) 1 ea N/A DAILY@0859 PRN PRN Reason: IF PATCH APPLIED Stop: 02/03/21 08:58 Nicotine (Nicotine 7 Mg/24 Hr Tdsy) 7 mg TD QAM PRN PRN Reason: agitation Stop: 02/02/21 22:07 Last Admin: 01/04/21 10:38 Dose: 7 mg Documented by: Ondansetron HCl (Ondansetron Inj 2 Mg/Ml 2 Ml Vial) 4 mg IV Q6H PRN PRN Reason: Nausea Stop: 02/02/21 22:07 Pantoprazole Sodium (Pantoprazole 40 Mg Tab) 40 mg PO QAM [facility] Stop: 02/10/21 08:59 Last Admin: 01/11/21 07:29 Dose: 40 mg Documented by: Polyethylene Glycol (Polyethylene (Miralax) 17 Gm Pack) 17 gm PO DAILY PRN PRN Reason: Constipation Stop: 02/02/21 22:07 Quetiapine Fumarate (Quetiapine Fumarate 25 Mg Tablet) 12.5 mg PO Q12 PRN PRN Reason: Anxiety Stop: 02/08/21 20:59 Last Admin: 01/10/21 15:35 Dose: 12.5 mg Documented by: Rosuvastatin Calcium (Rosuvastatin Calcium 20 Mg Tab) 20 mg PO DAILY [facility] Stop: 02/03/21 08:59 Last Admin: 01/11/21 07:29 Dose: 20 mg Documented by: Thiamine HCl (Thiamine Hcl 100 Mg Tab) 100 mg PO QAM [facility] Stop: 02/03/21 08:59 Last Admin: 01/11/21 07:30 Dose: 100 mg Documented by: Umeclidinium [place] (Umeclidinium [place] 62.5mcg/Blister 7 Puffs/Inhaler) 1 puffs INH DAILY [facility] Stop: 02/03/21 08:59 Last Admin: 01/11/21 07:33 Dose: 1 puffs Documented by: PG Care Time/CCT Total # of Minutes Spent Total Time Spent with Patient: Total time spent is greater than 50% in coordination of care (as documented) at patient's floor/unit and/or counseling patient: Coding Level of Care Code 85830 Subseq Hosp Care Lvl 3 Diagnoses Hypoxia R09.02 COPD exacerbation J44.1 Acute and chronic respiratory failure with hypercapnia J96.22 Hypercapnia R06.89 Hyponatremia E87.1 Hypertension I10 Hypercholesterolemia E78.00 CAD (coronary artery disease) I25.10 COPD (chronic obstructive pulmonary disease) J44.9 COPD type: unspecified COPD Elevated d-dimer R79.89 Lung nodule R91.1 Daily consumption of alcohol Z78.9 Anxiety F41.9 Smoking F17.200 (1) COPD (chronic obstructive pulmonary disease) COPD type: unspecified COPD Qualified Code(s): J44.9 - Chronic obstructive pulmonary disease, unspecified
[2021-01-12] MEDS: ROSUVASTATIN CALCIUM 20 MG TAB PO SCH (09:19)
[2021-01-12] MEDS: predniSONE 20 MG TAB PO SCH (09:19)
[2021-01-12] MEDS: THIAMINE HCL 100 MG TAB PO SCH (09:19)
[2021-01-12] MEDS: UMECLIDINIUM BROMIDE 62.5MCG/BLISTER 7 PUFFS/INHALER INH SCH (09:19)
[2021-01-12] MEDS: METOPROLOL TARTRATE 100 MG TAB PO SCH ×2 (09:20→21:22)
[2021-01-12] MEDS: lisinopril 20 MG TAB PO SCH (09:20)
[2021-01-12] MEDS: PANTOprazole 40 MG TAB PO SCH (09:20)
[2021-01-12] MEDS: EZETIMIBE 10 MG TABLET PO SCH (09:20)
[2021-01-12] MEDS: FOLIC ACID 1 MG TAB PO SCH (09:20)
[2021-01-12] MEDS: ENOXAPARIN INJ 40 MG/0.4 ML SYR SQ SCH (09:21)
[2021-01-12] MEDS: ASPIRIN 81 MG CHEW PO SCH (11:21)
[2021-01-12] MEDS: hydrOXYzine HCl 25 MG TAB PO PRN (15:18)
--- NOTE | 2021-01-12 16:33 | Hospitalist Progress Note ---
Date of Service January 12, 2021 Assessment & Plan (1) Hypoxia: Plan: Acute respiratory failure with hypoxia and hypercapnia due to COPD exacerbation progressed to need for intubation on 01/06 able to be extubated 01/08, straight to BIPAP oxygenated well on BIPAP with FiO2 only 30% able to remove BIPAP morning of 01/09, he has been calm, breathing comfortably, oxygenating adequately on low flow nasal canula 2L control anxiety with Hydroxyzine (taking occasionally), Seroquel PRN (has used once) Remains on 2LNC now-titrate down to keep POx>88-90% given COPD -make Duonebs scheduled rather than prn as he is wheezing, has very poor air movement throughout, and has not been asking for them (2) COPD exacerbation: Plan: COPD Exacerbation-with intubation required as above received IV Solu Medrol and then converted to Prednisone 40mg daily on 01/12- taper down stopped antibiotics 01/10 after 7 days intubated 01/06 extubated 01/08 off BIPAP for three days, breathing well with low flow nasal canula 2L - CTA w/ evidence of bronchitis, chronic pulm nodules that will need follow up in 6 months -refusing BiPAP hs due to anxiety (3) Acute and chronic respiratory failure with hypercapnia: Plan: CO2 down on most recent ABG extubated, then BIPAP, now ventilating well on nasal canula as above (4) Hyponatremia: Plan: Hyponatremia - likely secondary to progressive diarrhea and dehydration & daily beer intake with 1 TV dinner daily for nutrition - VBG and BMP indicative of nongap metabolic acidosis - Na up to normal on last labs follow BMP in AM (5) Hypertension: Plan: BPs controlled - Continue metoprolol 200mg BID continue lisinopril 20mg daily (6) Hypercholesterolemia: Plan: - Continue rosuvastatin (7) CAD (coronary artery disease): Plan: - Continue lisinopril - Continue Metoprolol 200mg BID - Continue Aspirin - Continue rosuvastatin (8) COPD (chronic obstructive pulmonary disease): Plan: - See COPD exacerbation continue LAMA (9) Elevated d-dimer: Plan: - likely due to viral infection causing COPD ex, - CTA Chest negative for PE, no sx or swelling indicative of DVT, no hx clotting (10) Lung nodule: Plan: Chest CTA revealed a 9X 7 mm left apical nodule suggestive of pleuralparenchymal scarring however, is new from 2007. 6-month follow-up chest CT is recommended and referred to lung nodule program (11) Daily consumption of alcohol: Plan: - 3 to 4 beers daily, no history of withdrawal/DTs - Last drink evening 01/02 suspect a big component of his anxiety, delirium, labile blood pressure is alcohol withdrawal no signs of withdrawal at this time, likely through the worst of it using Hydroxyzine and Seroquel PRN, he gets very delirious with benzodiazepines - AVOID! (12) Anxiety: Plan: - patient has seen a therapist and psychiatry as outpatient who is interested in seeing again Psych consulted, appreciate recommendations Patient previously on Lexapro, but with severe fatigue. SSRI not appropriate at this time given hyponatremia per daughter, he was on Valium for a long time, transitioned to Klonopin that he did not like as much right now avoiding benzodiazepines due to delirium use Seroquel and Hydroxyzine PRN (13) Smoking: Plan: nicotine patch 7mcg daily prn is ordered needs continued cessation counseling Plan: DVT Prophylaxis- Lovenox SQ GI Porph-PPI Add docusate, Miralax for constipation Dispo- PT/OT evaluations appreciated-plan for rehab-referral out to [facility] Will be medically stable by time nbed available most likely in 1-2 days Admission and Anticipated Discharge Date Admission Date: January 03, 2021 Subjective Pt reports still coughing up "nasty" sputum that is yellow nd thick with scant blood at times. No chest pain or abd pain. Is eating. Is having some pain in rectal area with moving his bowels, thinks he has a hemorrhoid developing. Was OOB and ambulating halls today with PT. Denies SOB but feels weak all over. He is not able to tolerate the BiPAP due to anxiety. He is upset to hear that he might need rehab for at least 2 weeks. Review of Systems Review of Systems: All systems reviewed & are unremarkable except as noted in HPI & below Physical Exam Constitutional: + ill appearing and + underweight; no acute distress Eyes: + anicteric sclerae Neck: trachea midline, no thyromegaly Respiratory: + tachypneic (with speaking) Auscultation: + diminished lung sounds (severely diminished throughout), + rhonchi (upper airway) and + wheezes (exp bilat) Cardiovascular: RRR, no murmur, no edema Chest (Breasts): Chest: normal inspection of chest Gastrointestinal (Abdomen): normal bowel sounds, soft, nontender, no hepatosplenomegaly Musculoskeletal: Extremities: extremities normal to inspection; no cyanosis and no clubbing Skin: no rashes, warm and dry Neurologic: moves all extremities and awake; no focal motor deficits Psychiatric: A+Ox3, euthymic affect Lymphatic: no lymphedema Results & Data Results & Data ([facility]) Vital Signs (Past 12 Hours) Vital Signs Temp Pulse Resp BP Pulse Ox 01/12/21 16:00 36.9 C 78 18 146/81 H 97 01/12/21 11:23 36.5 C 78 16 172/94 H 93 01/12/21 07:44 36.7 C 84 16 183/97 H 90 PG Care Time/CCT Total # of Minutes Spent Total Time Spent with Patient: Total time spent is greater than 50% in coordination of care (as documented) at patient's floor/unit and/or counseling patient: Coding Level of Care Code 29034 Subseq Hosp Care Lvl 3 Diagnoses Hypoxia R09.02 COPD exacerbation J44.1 Acute and chronic respiratory failure with hypercapnia J96.22 Hyponatremia E87.1 Hypertension I10 Hypercholesterolemia E78.00 CAD (coronary artery disease) I25.10 COPD (chronic obstructive pulmonary disease) J44.9 COPD type: unspecified COPD Elevated d-dimer R79.89 Lung nodule R91.1 Daily consumption of alcohol Z78.9 Anxiety F41.9 Smoking F17.200 (1) COPD (chronic obstructive pulmonary disease) COPD type: unspecified COPD Qualified Code(s): J44.9 - Chronic obstructive pulmonary disease, unspecified
[2021-01-12] MEDS: ALBUT/IPRATROP 3MG/0.5MG NEB 3 ML VIAL NEB SCH (17:15)
[2021-01-12] MEDS: DOCUSATE SODIUM 100 MG CAP PO SCH (17:36)
[2021-01-12] MEDS ORDERED: ALBUT/IPRATROP 3MG/0.5MG NEB 3 ML VIAL NEB SCH (19:00)
[2021-01-12] MEDS: QUEtiapine FUMARATE 25 MG TABLET PO PRN (21:58)
[2021-01-13] MEDS: ALBUT/IPRATROP 3MG/0.5MG NEB 3 ML VIAL NEB SCH ×4 (00:11→20:01)
[2021-01-13] MEDS ORDERED: SODIUM CHLORIDE 0.9% 1000ML 500 ML IV ONE (00:16)
[2021-01-13 06:07] LABS: Eosinophils # (auto) 0.01 K/uL (0-0.5); Eosinophils % (auto) 0.1 %; Hemoglobin 12.7 g/dL (14.0-18.0); Immature Granulocytes # (auto) 0.02 K/uL (0.00-0.02); Immature Granulocytes % (auto) 0.2 %; Lymphocytes # (auto) 1.31 K/uL (1.2-3.4); Lymphocytes % (auto) 12.7 %; Mean Corpuscular Hemoglobin 34.4 pg (25-34); Mean Corpuscular Hgb Conc 31.8 g/dL (32-36); Mean Corpuscular Volume 108.4 fL (80-100); Mean Platelet Volume 9.5 fL (7.4-10.4); Monocytes # (auto) 1.22 K/uL (0.11-0.59); Monocytes % (auto) 11.8 %; Neutrophils # (auto) 7.78 K/uL (1.4-6.5); Neutrophils % (auto) 75.2 %; Platelet Count 166 K/uL (130-400); RDW Coefficient of Variation 12.2 % (11.5-14.5); RDW Standard Deviation 48.4 fL (36.4-46.3); Red Blood Count 3.69 M/uL (4.7-6.1); White Blood Count 10.34 K/uL (4.8-10.8)
[2021-01-13 06:39] LABS: BUN Creatinine Ratio 38.6 (10-20); Calcium 8.3 mg/dl (8.5-10.1); Creatinine Clr Calc Pharmacy 93.1 ml/min; Est GFR (African American) 125.9 ml/min; Est GFR (Non-African American) 108.6 ml/min; Magnesium 2.5 mg/dl (1.8-2.4); Potassium 4.3 mmol/L (3.5-5.1)
[2021-01-13] MEDS: DOCUSATE SODIUM 100 MG CAP PO SCH ×2 (07:47→20:30)
[2021-01-13] MEDS: hydrOXYzine HCl 25 MG TAB PO PRN (07:47)
[2021-01-13] MEDS: PANTOprazole 40 MG TAB PO SCH (07:48)
[2021-01-13] MEDS: ENOXAPARIN INJ 40 MG/0.4 ML SYR SQ SCH (07:48)
[2021-01-13] MEDS: lisinopril 20 MG TAB PO SCH (07:48)
[2021-01-13] MEDS: EZETIMIBE 10 MG TABLET PO SCH (07:48)
[2021-01-13] MEDS: FOLIC ACID 1 MG TAB PO SCH (07:48)
[2021-01-13] MEDS: ROSUVASTATIN CALCIUM 20 MG TAB PO SCH (07:49)
[2021-01-13] MEDS: predniSONE 20 MG TAB PO SCH (07:49)
[2021-01-13] MEDS: THIAMINE HCL 100 MG TAB PO SCH (07:49)
[2021-01-13] MEDS: UMECLIDINIUM BROMIDE 62.5MCG/BLISTER 7 PUFFS/INHALER INH SCH (07:49)
[2021-01-13] MEDS: POLYETHYLENE (MIRALAX) 17 GM PACK PO SCH (07:49)
[2021-01-13] MEDS: NICOTINE 7 MG/24 HR TDSY TD PRN (07:50)
[2021-01-13] MEDS: METOPROLOL TARTRATE 100 MG TAB PO SCH ×2 (10:05→20:30)
[2021-01-13] MEDS: ASPIRIN 81 MG CHEW PO SCH (10:06)
[2021-01-13] MEDS ORDERED: HYDROCORTISONE ACETATE 25 MG SUPP PR PRN (15:49)
--- NOTE | 2021-01-13 15:51 | Hospitalist Progress Note ---
Date of Service January 13, 2021 Assessment & Plan (1) Hypoxia: Plan: Acute respiratory failure with hypoxia and hypercapnia due to COPD exacerbation progressed to need for intubation on 01/06 able to be extubated 01/08, straight to BIPAP oxygenated well on BIPAP with FiO2 only 30% able to remove BIPAP morning of 01/09, he has been calm, breathing comfortably, oxygenating adequately on low flow nasal canula 2L Tried weaning to RA on 01/13 and POx 75%-back on 2LNC Coughing up sputum, feeling better with scheduled neb treatments continue to control anxiety with Hydroxyzine (taking occasionally), Seroquel PRN (has used once) supplemental O2-titrate down to keep POx>88-90% given COPD continue Duonebs scheduled, has very poor air movement throughout (2) COPD exacerbation: Plan: COPD Exacerbation-with intubation required as above received IV Solu Medrol and then converted to Prednisone 40mg daily on 01/12- taper down byt 10mg q3 days stopped antibiotics 01/10 after 7 days intubated 01/06 extubated 01/08 off BIPAP for three days, breathing well with low flow nasal canula 2L - CTA w/ evidence of bronchitis, chronic pulm nodules that will need follow up in 6 months -refusing BiPAP hs due to anxiety (3) Acute and chronic respiratory failure with hypercapnia: Plan: CO2 down on most recent ABG extubated, then BIPAP, now ventilating well on nasal canula as above (4) Hyponatremia: Plan: Hyponatremia-now resolved - likely secondary to progressive diarrhea and dehydration & daily beer intake with 1 TV dinner daily for nutrition - VBG and BMP indicative of nongap metabolic acidosis (5) Hypertension: Plan: BPs controlled but did have a few lower BPs overnight - Continue metoprolol but lower dose to 100mg BID which is home dose continue lisinopril 20mg daily (6) Hypercholesterolemia: Plan: - Continue rosuvastatin (7) CAD (coronary artery disease): Plan: no acute issues, has 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 6-month follow-up chest CT is recommended and referred to lung nodule program (11) Daily consumption of alcohol: Plan: -daughter reports pt drinks 6 of the "pounder" beers daily which is equal to 8 beers daily, no history of withdrawal/DTs - Last drink evening 01/02 suspect a big component of his anxiety, delirium, labile blood pressure is alcohol withdrawal no signs of withdrawal at this time, likely through the worst of it, BPs now low using Hydroxyzine and Seroquel PRN, he gets very delirious with benzodiazepines - AVOID! (12) Anxiety: Plan: - patient has seen a therapist and psychiatry as outpatient who is interested in seeing again Psych consulted, appreciate recommendations Patient previously on Lexapro, but with severe fatigue. SSRI not appropriate at this time given hyponatremia per daughter, he was on Valium for a long time, transitioned to Klonopin that he did not like as much right now avoiding benzodiazepines due to delirium use Seroquel and Hydroxyzine PRN (13) Smoking: Plan: nicotine patch 7mcg daily prn is ordered needs continued cessation counseling Plan: DVT Prophylaxis- Lovenox SQ GI Porph-PPI continue docusate, Miralax for constipation which is improved, add HC suppos for ext hemorrhoids Dispo- PT/OT evaluations appreciated-plan for rehab medically stable for discharge--> CM applied for auth Admission and Anticipated Discharge Date Admission Date: January 03, 2021 Subjective Feels better today, coughing up sputum and clearing it better. No SOB. Was off O2 for a bit but POx 75% so replaced at 2LNC. Was OOB to chair for several hours today. Is moving bowels a few times and no straining but bottom is sore. Is requesting a donut to sit on. Daughter at bedside thinks his mentation is much improved today. he did require a vistaril for anxiety as per RN this AM Tele with SB-NSR rates 50-80s, 4 beat run VT Review of Systems Review of Systems: All systems reviewed & are unremarkable except as noted in HPI & below Physical Exam Constitutional: + underweight; no acute distress Eyes: + anicteric sclerae Neck: trachea midline, no thyromegaly Respiratory: Auscultation: + diminished lung sounds (severely diminished throughout) and + rhonchi (upper airway); no wheezes Cardiovascular: RRR, no murmur, no edema Chest (Breasts): Chest: normal inspection of chest Gastrointestinal (Abdomen): normal bowel sounds, soft, nontender, no hepatosplenomegaly Musculoskeletal: Extremities: extremities normal to inspection; no cyanosis and no clubbing Skin: no rashes, warm and dry Neurologic: moves all extremities and awake; no focal motor deficits Psychiatric: A+Ox3, euthymic affect Lymphatic: no lymphedema Results & Data Results & Data ([facility]) Vital Signs (Past 12 Hours) Vital Signs Temp Pulse Pulse Resp BP BP Pulse Ox 01/13/21 15:36 36.6 C 72 16 117/73 91 01/13/21 14:19 79 01/13/21 13:25 82 22 75 L 01/13/21 10:03 37.2 C 90 01/13/21 10:02 93 H 22 130/74 75 L 01/13/21 07:37 77 18 99 01/13/21 07:28 36.8 C 80 18 159/73 H 92 01/13/21 06:21 60 01/13/21 04:00 36.6 C 61 20 108/63 100 Laboratory Results 01/13/21 05:35 01/13/21 05:35 PG Care Time/CCT Total # of Minutes Spent Total Time Spent with Patient: Total time spent is greater than 50% in coordination of care (as documented) at patient's floor/unit and/or counseling patient: Coding Level of Care Code 36499 Subseq Hosp Care Lvl 3 Diagnoses Hypoxia R09.02 COPD exacerbation J44.1 Acute and chronic respiratory failure with hypercapnia J96.22 Hyponatremia E87.1 Hypertension I10 Hypercholesterolemia E78.00 CAD (coronary artery disease) I25.10 COPD (chronic obstructive pulmonary disease) J44.9 COPD type: unspecified COPD Elevated d-dimer R79.89 Lung nodule R91.1 Daily consumption of alcohol Z78.9 Anxiety F41.9 Smoking F17.200 (1) COPD (chronic obstructive pulmonary disease) COPD type: unspecified COPD Qualified Code(s): J44.9 - Chronic obstructive pulmonary disease, unspecified
[2021-01-14] MEDS: ALBUT/IPRATROP 3MG/0.5MG NEB 3 ML VIAL NEB SCH ×4 (00:02→18:59)
[2021-01-14] MEDS: POLYETHYLENE (MIRALAX) 17 GM PACK PO SCH (08:08)
[2021-01-14] MEDS: ACETAMINOPHEN 325 MG TAB PO PRN (08:10)
[2021-01-14] MEDS: DOCUSATE SODIUM 100 MG CAP PO SCH ×2 (08:12→21:24)
[2021-01-14] MEDS: ENOXAPARIN INJ 40 MG/0.4 ML SYR SQ SCH (08:12)
[2021-01-14] MEDS: ASPIRIN 81 MG CHEW PO SCH (08:15)
[2021-01-14] MEDS: EZETIMIBE 10 MG TABLET PO SCH (08:16)
[2021-01-14] MEDS: FOLIC ACID 1 MG TAB PO SCH (08:16)
[2021-01-14] MEDS: lisinopril 20 MG TAB PO SCH (08:16)
[2021-01-14] MEDS: METOPROLOL TARTRATE 100 MG TAB PO SCH ×2 (08:16→21:25)
[2021-01-14] MEDS: THIAMINE HCL 100 MG TAB PO SCH (08:17)
[2021-01-14] MEDS: predniSONE 20 MG TAB PO SCH (08:17)
[2021-01-14] MEDS: ROSUVASTATIN CALCIUM 20 MG TAB PO SCH (08:17)
[2021-01-14] MEDS: UMECLIDINIUM BROMIDE 62.5MCG/BLISTER 7 PUFFS/INHALER INH SCH (08:17)
[2021-01-14] MEDS: PANTOprazole 40 MG TAB PO SCH (08:17)
--- NOTE | 2021-01-14 20:08 | Hospitalist Progress Note ---
Date of Service January 14, 2021 Assessment & Plan (1) Hypoxia: Plan: Acute respiratory failure with hypoxia and hypercapnia due to COPD exacerbation progressed to need for intubation on 01/06 able to be extubated 01/08, straight to BIPAP oxygenated well on BIPAP with FiO2 only 30% able to remove BIPAP morning of 01/09, he has been calm, breathing comfortably, oxygenating adequately on low flow nasal canula 2L Tried weaning to RA on 01/13 and POx 75%-back on 2LNC On 01/14 much improved and is weaned down to 1.5 L nasal cannula Coughing up sputum, feeling better with scheduled neb treatments and using flutter valve continue to control anxiety with Hydroxyzine (taking occasionally), Seroquel PRN supplemental O2-titrate down to keep POx>88-90% given COPD continue Duonebs scheduled, has very poor air movement throughout but is improving today (2) COPD exacerbation: Plan: COPD Exacerbation-with intubation required as above received IV Solu Medrol and then converted to Prednisone 40mg daily on 01/12- taper down by 10mg q3 days-change to 30 mg for tomorrow stopped antibiotics 01/10 after 7 days intubated 01/06 extubated 01/08 off BIPAP for three days, breathing well with low flow nasal canula 1.5 L - CTA w/ evidence of bronchitis, chronic pulm nodules that will need follow up in 6 months -refusing BiPAP hs due to anxiety (3) Acute and chronic respiratory failure with hypercapnia: Plan: CO2 down on most recent ABG extubated, then BIPAP, now ventilating well on nasal canula as above (4) Hyponatremia: Plan: Hyponatremia-now resolved - likely secondary to progressive diarrhea and dehydration & daily beer intake with 1 TV dinner daily for nutrition - VBG and BMP indicative of nongap metabolic acidosis (5) Hypertension: Plan: BPs controlled but did have a few lower BPs overnight and metoprolol dose was lowered back down to 100 mg p.o. twice daily Blood pressures now excellent - Continue metoprolol 100mg BID which is home dose continue lisinopril 20mg daily (6) Hypercholesterolemia: Plan: - Continue rosuvastatin (7) CAD (coronary artery disease): Plan: no acute issues, has a h/o [place] with cardiac arrest 13 years ago with PCI - Continue lisinopril - Continue Metoprolol - Continue Aspirin - Continue rosuvastatin (8) COPD (chronic obstructive pulmonary disease): Plan: - See COPD exacerbation continue LAMA (9) Elevated d-dimer: Plan: - likely due to viral infection causing COPD ex, - CTA Chest negative for PE, no sx or swelling indicative of DVT, no hx clotting (10) Lung nodule: Plan: Chest CTA revealed a 9X 7 mm left apical nodule suggestive of pleuralparenchymal scarring however, is new from 2007. 6-month follow-up chest CT is recommended and referred to lung nodule program (11) Daily consumption of alcohol: Plan: -daughter reports pt drinks 6 of the "pounder" beers daily which is equal to 8 beers daily, no history of withdrawal/DTs - Last drink evening 01/02 suspect a big component of his anxiety, delirium, labile blood pressure is alcohol withdrawal no signs of withdrawal at this time, likely through the worst of it, BPs now lower side using Hydroxyzine and Seroquel PRN, he gets very delirious with benzodiazepines - AVOID! (12) Anxiety: Plan: - patient has seen a therapist and psychiatry as outpatient who is interested in seeing again Psych consulted, appreciate recommendations Patient previously on Lexapro, but with severe fatigue. SSRI not appropriate at this time given hyponatremia per daughter, he was on Valium for a long time, transitioned to Klonopin that he did not like as much right now avoiding benzodiazepines due to delirium use Seroquel and Hydroxyzine PRN (13) Smoking: Plan: nicotine patch 7mcg daily prn is ordered needs continued cessation counseling Plan: DVT Prophylaxis- Lovenox SQ GI Poroph-PPI Discontinue laxatives as he is now having multiple loose stools Dispo- PT/OT evaluations appreciated-plan for rehab medically stable for discharge--> CM working on application for insurance authorization, plan is for discharge to [facility] Admission and Anticipated Discharge Date Admission Date: January 03, 2021 Subjective Patient in really good spirits today. He is using his flutter valve. He is complaining of nasal congestion but otherwise feels well. He is moving his bowels. His bottom feels much better after 1 dose of hydrocortisone suppository and he does not want any more. He is feeling a little bit stronger every day working with therapy. Telemetry with normal sinus rhythm with rates in the 70s to 80s Review of Systems Review of Systems: All systems reviewed & are unremarkable except as noted in HPI & below Physical Exam Constitutional: + underweight; no acute distress Eyes: + anicteric sclerae Neck: trachea midline, no thyromegaly Respiratory: Auscultation: + diminished lung sounds (Throughout, but improved from previous); no rales, no rhonchi and no wheezes Cardiovascular: RRR, no murmur, no edema Chest (Breasts): Chest: normal inspection of chest Gastrointestinal (Abdomen): normal bowel sounds, soft, nontender, no h epatosplenomegaly Musculoskeletal: Extremities: extremities normal to inspection; no cyanosis and no clubbing Skin: no rashes, warm and dry Neurologic: moves all extremities and awake; no focal motor deficits Psychiatric: A+Ox3, euthymic affect Lymphatic: no lymphedema Results & Data Results & Data ([facility]) Vital Signs (Past 12 Hours) Vital Signs Temp Pulse Pulse Resp BP BP Pulse Ox 01/14/21 20:04 37.1 C 102 H 18 131/75 94 01/14/21 19:01 98 H 18 96 01/14/21 15:53 85 01/14/21 14:59 36.8 C 84 20 118/76 93 01/14/21 13:20 78 18 95 01/14/21 12:38 36.3 C L 80 18 133/75 94 Laboratory Results 01/14/21 Range/Units 02:50 Stl C. diff Tox B Gene Negative Cdiff Gene (Neg) PG Care Time/CCT Total # of Minutes Spent Total Time Spent with Patient: Total time spent is greater than 50% in coordination of care (as documented) at patient's floor/unit and/or counseling patient: Coding Level of Care Code 68639 Subseq Hosp Care Lvl 2 Diagnoses Hypoxia R09.02 COPD exacerbation J44.1 Acute and chronic respiratory failure with hypercapnia J96.22 Hyponatremia E87.1 Hypertension I10 Hypercholesterolemia E78.00 CAD (coronary artery disease) I25.10 COPD (chronic obstructive pulmonary disease) J44.9 COPD type: unspecified COPD Elevated d-dimer R79.89 Lung nodule R91.1 Daily consumption of alcohol Z78.9 Anxiety F41.9 Smoking F17.200 (1) COPD (chronic obstructive pulmonary disease) COPD type: unspecified COPD Qualified Code(s): J44.9 - Chronic obstructive pulmonary disease, unspecified
[2021-01-14] MEDS ORDERED: SODIUM CHLORIDE 0.65% NA SOLN 45 ML (OCEAN) PRN (21:18)
[2021-01-14] MEDS: hydrOXYzine HCl 25 MG TAB PO PRN (21:36)
[2021-01-15] MEDS: ALBUT/IPRATROP 3MG/0.5MG NEB 3 ML VIAL NEB SCH ×4 (00:01→19:42)
[2021-01-15] MEDS: QUEtiapine FUMARATE 25 MG TABLET PO PRN (02:16)
[2021-01-15] MEDS: ASPIRIN 81 MG CHEW PO SCH (08:14)
[2021-01-15] MEDS: UMECLIDINIUM BROMIDE 62.5MCG/BLISTER 7 PUFFS/INHALER INH SCH (08:14)
[2021-01-15] MEDS: ENOXAPARIN INJ 40 MG/0.4 ML SYR SQ SCH (08:15)
[2021-01-15] MEDS: predniSONE 10 MG TABLET PO SCH (08:15)
[2021-01-15] MEDS: THIAMINE HCL 100 MG TAB PO SCH (08:15)
[2021-01-15] MEDS: ROSUVASTATIN CALCIUM 20 MG TAB PO SCH (08:15)
[2021-01-15] MEDS: DOCUSATE SODIUM 100 MG CAP PO SCH ×3 (08:15→23:55)
[2021-01-15] MEDS: PANTOprazole 40 MG TAB PO SCH (08:16)
[2021-01-15] MEDS: METOPROLOL TARTRATE 100 MG TAB PO SCH ×2 (08:16→20:56)
[2021-01-15] MEDS: POTASSIUM CHLORIDE 10 MEQ TABCR PO SCH (08:16)
[2021-01-15] MEDS: lisinopril 20 MG TAB PO SCH (08:16)
[2021-01-15] MEDS: FUROSEMIDE 20 MG TAB PO SCH (08:17)
[2021-01-15] MEDS: FOLIC ACID 1 MG TAB PO SCH (08:17)
[2021-01-15] MEDS: EZETIMIBE 10 MG TABLET PO SCH (08:17)
--- NOTE | 2021-01-15 21:05 | Hospitalist Progress Note ---
Date of Service January 15, 2021 Assessment & Plan (1) Hypoxia: Plan: Acute respiratory failure with hypoxia and hypercapnia due to COPD exacerbation progressed to need for intubation on 01/06 able to be extubated 01/08, straight to BIPAP oxygenated well on BIPAP with FiO2 only 30% able to remove BIPAP morning of 01/09, he has been calm, breathing comfortably, oxygenating adequately on low flow nasal canula 2L Tried weaning to RA on 01/13 and POx 75%-back on 2LNC Now much improved and is weaned down to 1.5-2 L nasal cannula Coughing up sputum, feeling better with scheduled neb treatments and using flutter valve continue to control anxiety with Hydroxyzine (taking occasionally), Seroquel PRN supplemental O2-titrate down to keep POx>88-90% given COPD continue Duonebs scheduled, has very poor air movement throughout but is improving today (2) COPD exacerbation: Plan: COPD Exacerbation-with intubation required as above received IV Solu Medrol and then converted to Prednisone 40mg daily on 01/12- taper down by 10mg q3 days-changed to 30 mg daily on 01/15 stopped antibiotics 01/10 after 7 days intubated 01/06 extubated 01/08 off BIPAP for three days, breathing well with low flow nasal canula 1.5 L - CTA w/ evidence of bronchitis, chronic pulm nodules that will need follow up in 6 months -refusing BiPAP hs due to anxiety (3) Acute and chronic respiratory failure with hypercapnia: Plan: CO2 down on most recent ABG extubated, then BIPAP, now ventilating well on nasal canula as above (4) Hyponatremia: Plan: Hyponatremia-now resolved - likely secondary to progressive diarrhea and dehydration & daily beer intake with 1 TV dinner daily for nutrition - VBG and BMP indicative of nongap metabolic acidosis (5) Hypertension: Plan: BPs controlled but did have a few lower BPs overnight and metoprolol dose was lowered back down to 100 mg p.o. twice daily Blood pressures now excellent - Continue metoprolol 100mg BID which is home dose continue lisinopril 20mg daily (6) Hypercholesterolemia: Plan: - Continue rosuvastatin (7) CAD (coronary artery disease): Plan: no acute issues, has a h/o CT with cardiac arrest 13 years ago with PCI - Continue lisinopril - Continue Metoprolol - Continue Aspirin - Continue rosuvastatin (8) COPD (chronic obstructive pulmonary disease): Plan: - See COPD exacerbation continue LAMA (9) Elevated d-dimer: Plan: - likely due to viral infection causing COPD ex, - CTA Chest negative for PE, no sx or swelling indicative of DVT, no hx clotting (10) Lung nodule: Plan: Chest CTA revealed a 9X 7 mm left apical nodule suggestive of pleuralparenchymal scarring however, is new from 2007. 6-month follow-up chest CT is recommended and referred to lung nodule program (11) Daily consumption of alcohol: Plan: -daughter reports pt drinks 6 of the "pounder" beers daily which is equal to 8 beers daily, no history of withdrawal/DTs - Last drink evening 01/02 suspect a big component of his anxiety, delirium, labile blood pressure is alcohol withdrawal no signs of withdrawal at this time, likely through the worst of it, BPs now lower side using Hydroxyzine and Seroquel PRN, he gets very delirious with benzodiazepines - AVOID! (12) Anxiety: Plan: - patient has seen a therapist and psychiatry as outpatient who is interested in seeing again Psych consulted, appreciate recommendations Patient previously on Lexapro, but with severe fatigue. SSRI not appropriate at this time given hyponatremia per daughter, he was on Valium for a long time, transitioned to Klonopin that he did not like as much right now avoiding benzodiazepines due to delirium use Seroquel and Hydroxyzine PRN (13) Smoking: Plan: nicotine patch 7mcg daily prn is ordered Gave cessation counseling Plan: DVT Prophylaxis- Lovenox SQ GI Proph-PPI Dispo- PT/OT evaluations appreciated-plan for rehab medically stable for discharge--> CM working on application for insurance authorization, plan is for discharge to [facility] hopefully tomorrow Admission and Anticipated Discharge Date Admission Date: January 03, 2021 Anticipated date of discharge: 01/16/21 Subjective Patient reports he had a good day. Still some productive cough, denies shortness of breath. Is eating well, moving his bowels. Does not have any pain in his bottom like previous. He is making urine. No complaints. Review of Systems Review of Systems: All systems reviewed & are unremarkable except as noted in HPI & below Physical Exam Constitutional: + underweight; no acute distress Eyes: + anicteric sclerae Neck: trachea midline, no thyromegaly Respiratory: Auscultation: + diminished lung sounds (Throughout, but improved from previous); no rales, no rhonchi and no wheezes Cardiovascular: RRR, no murmur, no edema Chest (Breasts): Chest: normal inspection of chest Gastrointestinal (Abdomen): normal bowel sounds, soft, nontender, no hepatosplenomegaly Musculoskeletal: Extremities: extremities normal to inspection; no cyanosis and no clubbing Skin: no rashes, warm and dry Neurologic: moves all extremities and awake; no focal motor deficits Psychiatric: A+Ox3, euthymic affect Lymphatic: no lymphedema Results & Data Results & Data ([facility]) Vital Signs (Past 12 Hours) Vital Signs Temp Pulse Resp BP Pulse Ox 01/15/21 20:56 88 120/75 01/15/21 19:44 95 H 18 96 01/15/21 15:24 37.1 C 85 16 128/79 95 01/15/21 12:58 78 18 96 01/15/21 11:07 36.8 C 84 16 153/89 H 95 PG Care Time/CCT Total # of Minutes Spent Total Time Spent with Patient: Total time spent is greater than 50% in coordination of care (as documented) at patient's floor/unit and/or counseling patient: Coding Level of Care Code 05594 Subseq Hosp Care Lvl 1 Diagnoses Hypoxia R09.02 COPD exacerbation J44.1 Acute and chronic respiratory failure with hypercapnia J96.22 Hyponatremia E87.1 Hypertension I10 Hypercholesterolemia E78.00 CAD (coronary artery disease) I25.10 COPD (chronic obstructive pulmonary disease) J44.9 COPD type: unspecified COPD Elevated d-dimer R79.89 Lung nodule R91.1 Daily consumption of alcohol Z78.9 Anxiety F41.9 Smoking F17.200 (1) COPD (chronic obstructive pulmonary disease) COPD type: unspecified COPD Qualified Code(s): J44.9 - Chronic obstructive pulmonary disease, unspecified
[2021-01-16] MEDS: ALBUT/IPRATROP 3MG/0.5MG NEB 3 ML VIAL NEB SCH ×3 (01:35→13:06)
[2021-01-16 07:25] VITALS: TEMP 98.1; O2SAT 96
[2021-01-16] MEDS: METOPROLOL TARTRATE 100 MG TAB PO SCH (09:31)
[2021-01-16] MEDS: DOCUSATE SODIUM 100 MG CAP PO SCH (09:32)
[2021-01-16] MEDS: PANTOprazole 40 MG TAB PO SCH (09:32)
[2021-01-16] MEDS: lisinopril 20 MG TAB PO SCH (09:32)
[2021-01-16] MEDS: EZETIMIBE 10 MG TABLET PO SCH (09:33)
[2021-01-16] MEDS: FOLIC ACID 1 MG TAB PO SCH (09:33)
[2021-01-16] MEDS: FUROSEMIDE 20 MG TAB PO SCH (09:34)
[2021-01-16] MEDS: THIAMINE HCL 100 MG TAB PO SCH (09:34)
[2021-01-16] MEDS: POTASSIUM CHLORIDE 10 MEQ TABCR PO SCH (09:34)
[2021-01-16] MEDS: UMECLIDINIUM BROMIDE 62.5MCG/BLISTER 7 PUFFS/INHALER INH SCH (09:34)
[2021-01-16] MEDS: ASPIRIN 81 MG CHEW PO SCH (09:35)
[2021-01-16] MEDS: ROSUVASTATIN CALCIUM 20 MG TAB PO SCH (09:35)
[2021-01-16] MEDS: ENOXAPARIN INJ 40 MG/0.4 ML SYR SQ SCH (09:35)
[2021-01-16] MEDS: predniSONE 10 MG TABLET PO SCH (09:35)
--- NOTE | 2021-01-16 13:28 | Discharge Summary ---
Date of Service January 16, 2021 Admission HPI Per Admitting Provider 65 yo M with hx CAD and COPD brought to ER for ongoing SOb. Was started on augmentin for persistent nasal congestion on 12/25 along with PO steroid pack, didn't have any improvement. States he's been having shortness of breath for the past week and half, and finally came in now because he's unable to lay flat, is anxious due to breathlessness at night, and has been febrile, having chills and night sweats. Denies any sick contacts but was at an [employer] meeting 5 days ago with 4 other people in a large room. Has been having loose, dark diarrhea for the past 4-5 days as well, along with increasing nausea. no abd pain. no vomiting. Is having coughs that were previously productive but not anymore. Principal Diagnosis COPD Exacerbation, Acute respiratory failure with hypoxia and hypercapnia, Pneumonia Discharge Exam Constitutional + underweight; no acute distress Eyes + anicteric sclerae Neck trachea midline, no thyromegaly Respiratory + tachypneic (with speaking) Auscultation: + diminished lung sounds (Throughout, but improved from previous); no rales, no rhonchi and no wheezes Cardiovascular RRR, no murmur, no edema Chest (Breasts) Chest: normal inspection of chest Gastrointestinal (Abdomen) normal bowel sounds, soft, nontender, no hepatosplenomegaly Musculoskeletal Extremities: extremities normal to inspection; no cyanosis and no clubbing Skin no rashes, warm and dry Neurologic moves all extremities and awake; no focal motor deficits Psychiatric A+Ox3, euthymic affect Lymphatic no lymphedema Discharge Data Allergies Allergy/AdvReac Type Severity Reaction Status Date / Time atorvastatin AdvReac Mild muscle Verified 01/08/21 07:34 weakness, myalgia escitalopram [From Lexapro] AdvReac Mild Fatigued Verified 01/08/21 07:34 Consultations 01/03/21 19:54 ED Decision to Admit Stat 01/04/21 01:07 Consult Nephrology Routine 01/04/21 08:31 Consult Lung Nodule Program Routine 01/04/21 11:59 Consult Psychiatry Routine 01/05/21 08:32 Consult Palliative Care Routine 01/05/21 10:17 Consult Research/Program Director Routine Ordered Studies 01/03/21 18:15 CT angio chest PE protocol Stat 01/05/21 08:34 CT head/brain wo con Stat Hospital Course (1) Hypoxia: Acute respiratory failure with hypoxia and hypercapnia due to COPD exacerbation progressed to need for intubation on 01/06 able to be extubated 01/08, straight to BIPAP oxygenated well on BIPAP with FiO2 only 30% able to remove BIPAP morning of 01/09, he has been calm, breathing comfortably, oxygenating adequately on low flow nasal canula 2L Tried weaning to RA on 01/13 and POx 75%-back on 2LNC Now much improved and is weaned down to 1.5-2 L nasal cannula Coughing up sputum, feeling better with scheduled neb treatments and using flutter valve continue to control anxiety with Hydroxyzine (taking occasionally), Seroquel PRN supplemental O2-titrate down to keep POx>88-90% given COPD continue Duonebs scheduled, has very poor air movement throughout but is improving (2) COPD exacerbation: COPD Exacerbation-with intubation required as above received IV Solu Medrol and then converted to Prednisone 40mg daily on 01/12- taper down by 10mg q3 days-changed to 30 mg daily on 01/15 stopped antibiotics 01/10 after 7 days intubated 01/06 extubated 01/08 off BIPAP for three days, breathing well with low flow nasal canula 1.5 L - CTA w/ evidence of bronchitis, chronic pulm nodules that will need follow up in 6 months -refusing BiPAP hs due to anxiety (3) Acute and chronic respiratory failure with hypercapnia: CO2 down on most recent ABG extubated, then BIPAP, now ventilating well on nasal canula as above (4) Hyponatremia: Hyponatremia-now resolved - likely secondary to progressive diarrhea and dehydration & daily beer intake with 1 TV dinner daily for nutrition - VBG and BMP indicative of nongap metabolic acidosis (5) Hypertension: BPs controlled but did have a few lower BPs overnight and metoprolol dose was lowered back down to 100 mg p.o. twice daily Blood pressures now excellent - Continue metoprolol 100mg BID which is home dose continue lisinopril 20mg daily (6) Hypercholesterolemia: - Continue rosuvastatin (7) CAD (coronary artery disease): no acute issues, has a h/o [place] with cardiac arrest 13 years ago with PCI - Continue lisinopril - Continue Metoprolol - Continue Aspirin - Continue rosuvastatin (8) COPD (chronic obstructive pulmonary disease): - See COPD exacerbation continue LAMA (9) Elevated d-dimer: - likely due to viral infection causing COPD ex, - CTA Chest negative for PE, no sx or swelling indicative of DVT, no hx clotting (10) Lung nodule: Chest CTA revealed a 9X 7 mm left apical nodule suggestive of pleuralparenchymal scarring however, is new from 2007. 6-month follow-up chest CT is recommended and referred to lung nodule program (11) Daily consumption of alcohol: -daughter reports pt drinks 6 of the "pounder" beers daily which is equal to 8 beers daily, no history of withdrawal/DTs - Last drink evening 01/02 suspect a big component of his anxiety, delirium, labile blood pressure is alcohol withdrawal no signs of withdrawal at this time, likely through the worst of it, BPs now lower side using Hydroxyzine and Seroquel PRN, he gets very delirious with benzodiazepines - AVOID! (12) Anxiety: - patient has seen a therapist and psychiatry as outpatient who is interested in seeing again Psych consulted, appreciate recommendations Patient previously on Lexapro, but with severe fatigue. SSRI not appropriate at this time given hyponatremia per daughter, he was on Valium for a long time, transitioned to Klonopin that he did not like as much right now avoiding benzodiazepines due to delirium use Seroquel and Hydroxyzine PRN (13) Smoking: nicotine patch 7mcg daily prn was ordered Gave cessation counseling DVT Prophylaxis- Lovenox SQ GI Proph-PPI Dispo- PT/OT evaluations appreciated-plan for rehab medically stable for discharge to [facility] Total Time Total Time Spent Total Time Spent (In Minutes): 35 min Discharge Plan Discharge Items Patient Disposition: Transfer [facility] Reason For Visit: COPD EXACERBATION Discharge Diagnosis: COPD Exacerbation, Acute respiratory failure with hypercapnia and hypoxia EtOH dependence, Hyponatremia Condition on Discharge: Fair Activity: As commented below Lifting: Gradually increase as tolerated Bathing: No limitations Exercise/Sports: Gradually increase as tolerated Non-emergency contact: Primary Care Provider and Records Officer Call non-emergency contact if: you have any medication questions and your sy mptoms worsen Follow-up/Referrals: [facility] [Other] (pt will call [facility] once he is discharged from rehab to schedule in person counseling. ) Chance Manzo III, MD [Primary Care Provider] - Diet: Regular Addtl Attending Provider Instructions: Please continue the prednisone taper down and wean off oxygen as able to. It is very important that you continue to not smoke and not drink any more alcohol after discharge. Pending Studies at Discharge: No Stand-Alone Forms: My [facility] Skilled Items Patient informed of condition?: Yes DNR: No Discharge Level of Care: Skilled Communicable Disease: No Discharge Prognosis: Improving Lines: None Urinary Catheter: No Medications and DC Order Prescriptions: New ipratropium-albuterol 0.5 mg-3 mg(2.5 mg base)/3 mL Solution For Nebulization 3 ml NEB Q6R Qty: 90 RF: 0 acetaminophen 325 mg Tablet 650 mg PO Q4H PRN (Reason: pain) Qty: 30 RF: 0 hydroxyzine HCl 25 mg Tablet 25 mg PO Q8 PRN (Reason: anxiety) Qty: 30 RF: 0 quetiapine 25 mg Tablet 12.5 mg PO Q12 PRN (Reason: anxiety) Qty: 10 RF: 0 sodium chloride [Saline Mist] 0.65 % Aerosol,[place] 2 spray NA Q2H PRN (Reason: nasal congestion) Qty: 30 RF: 0 prednisone 10 mg Tablet 30 mg PO QAM Qty: 15 RF: 0 pantoprazole 40 mg Tablet,Delayed Release (Dr/Ec) 40 mg PO QAM Qty: 30 RF: 0 docusate sodium 100 mg Capsule 100 mg PO BID Qty: 60 RF: 0 thiamine HCl (vitamin B1) [Vitamin B-1] 100 mg Tablet 100 mg PO QAM Qty: 30 RF: 0 Continued folic acid 1 mg tablet 1 mg PO DAILY Qty: 90 RF: 3 lisinopril 20 mg tablet 20 mg PO DAILY Qty: 90 RF: 3 Spiriva with HandiHaler 18 mcg capsule, w/inhalation device 1 cap INH DAILY Qty: 30 RF: 5 metoprolol tartrate 100 mg tablet 100 mg PO BID Qty: 180 RF: 3 ezetimibe 10 mg tablet 10 mg PO DAILY Qty: 90 RF: 3 rosuvastatin 20 mg tablet 20 mg PO DAILY Qty: 90 RF: 3 furosemide 20 mg tablet 20 mg PO DAILY Qty: 90 RF: 3 potassium chloride 10 mEq tablet extended release 10 meq PO DAILY Qty: 90 RF: 3 albuterol sulfate [ProAir HFA] 90 mcg/actuation HFA aerosol inhaler 2 puff inhalation QID PRN (Reason: shortness of breath or wheezing) Qty: 18 RF: 11 vitamin B complex tablet 1 tab PO DAILY RF: 0 aspirin [Aspirin Low Dose] 81 mg Tablet,Delayed Release (Dr/Ec) 81 mg PO DAILY RF: 0 Discontinued sildenafil 50 mg tablet 50 mg PO DAILY PRN (Reason: sexual activity) Qty: 6 RF: 6 Discharge Orders: Discharge Order (Routine); Ordered 01/16/21 Ordered By: Rosa Almonte Admission Data Admit Date/Time: 01/03/21 20:33 Attending Provider: Rosa Almonte Admit Provider: Steffi Baca Primary Care Provider: Chance Manzo III Other Providers: Dinah Salmeron ; [facility] ; [facility] [place] ; Heydi Ziegler ; Bhavani Wilson ; Ainsley Laureano ; [facility] ; Chasity Boone ; Kenji Cochran ; Susanne Braun ; rTung Leigh Coding Level of Care Code D/C DAY MANAGEMENT >30 MINS Diagnoses Hypoxia R09.02 COPD exacerbation J44.1 Acute and chronic respiratory failure with hypercapnia J96.22 Hyponatremia E87.1 Hypertension I10 Hypercholesterolemia E78.00 CAD (coronary artery disease) I25.10 COPD (chronic obstructive pulmonary disease) J44.9 COPD type: unspecified COPD Elevated d-dimer R79.89 Lung nodule R91.1 Daily consumption of alcohol Z78.9 Anxiety F41.9 Smoking F17.200
[2021-01-16 14:30] VITALS: BP 138/77; PULSE 105
--- NOTE | 2021-01-16 17:34 | Electrocardiogram Report ---
Test Reason : Blood Pressure : / mmHG Vent. Rate : 087 BPM Atrial Rate : 087 BPM P-R Int : 104 ms QRS Dur : 070 ms QT Int : 340 ms P-R-T Axes : 094 062 059 degrees QTc Int : 409 ms Poor data quality, interpretation may be adversely affected Sinus rhythm with short SD Otherwise normal ECG When compared with ECG of 06-JAN-2021 12:56, T wave amplitude has decreased in Lateral leads Confirmed by Alexander Jimenez ([id number]) on 01/16/2021 5:34:03 PM Referred By: REFERRED SELF Confirmed By:Alexander Jimenez
--- NOTE | 2021-01-18 07:20 | Electrocardiogram Report ---
Test Reason : Blood Pressure : / mmHG Vent. Rate : 084 BPM Atrial Rate : 084 BPM P-R Int : 080 ms QRS Dur : 114 ms QT Int : 392 ms P-R-T Axes : 000 023 -79 degrees QTc Int : 463 ms Poor data quality, interpretation may be adversely affected Sinus rhythm with short DE When compared with ECG of 06-JAN-2021 12:56, Questionable change in QRS duration Confirmed by Aiden Ott ([id number] on 01/18/2021 7:20:24 AM Referred By: REFERRED SELF Confirmed By:Aiden Ott
== END 2021-01-16 16:20 | DRG 208 ==
LOC: ED 14:55 → SUATTDRO 20:33 → 3N 20:33 → 2N 01-04 16:54 → 1E 01-05 07:01 → 2N 01-09 09:04 → 3N 01-14 20:15
DX: Z95.5 Presence of coronary angioplasty implant and graft; E78.5 Hyperlipidemia, unspecified; Z68.23 Body mass index [BMI] 23.0-23.9, adult; Z86.74 Personal history of sudden cardiac arrest; E86.0 Dehydration; E87.1 Hypo-osmolality and hyponatremia; J44.1 Chronic obstructive pulmonary disease with (acute) exacerbation; F41.9 Anxiety disorder, unspecified; I25.10 Atherosclerotic heart disease of native coronary artery without angina pectoris; F17.210 Nicotine dependence, cigarettes, uncomplicated; J96.22 Acute and chronic respiratory failure with hypercapnia; I10 Essential (primary) hypertension; J18.9 Pneumonia, unspecified organism; R63.6 Underweight; Z99.81 Dependence on supplemental oxygen; E46 Unspecified protein-calorie malnutrition; J96.01 Acute respiratory failure with hypoxia; F10.20 Alcohol dependence, uncomplicated; E16.2 Hypoglycemia, unspecified; R91.1 Solitary pulmonary nodule; E78.00 Pure hypercholesterolemia, unspecified; B34.9 Viral infection, unspecified